=== PATIENT | female | born 1975 | race African-American/Black ===

== ENCOUNTER 2018-05-19 10:30 | Inpatient (IN) | payer OTHER ==
[2018-05-19 13:27] VITALS: BMI 23.8
--- NOTE | 2018-05-19 15:47 | HP ---
Admission ROS [facility] Chief Complaint: i need help to come in for rehab from alcohol Allergies/Adverse Reactions: Allergies Allergy/AdvReac Type Severity Reaction Status Date / Time naltrexone AdvReac Verified 05/19/18 14:07 History of Present Illness: this 42 years old female with alcohol dependence,feel 05/11/18 seen at [facility] ,injury to back and neck,admitted from 05/13/18 to 05/18/18 complete detox need rehab type 2 dm,iddm nicotine dependence no significant period of sobriety Exam Limitations: No Limitations - Ebola screening Have you traveled outside of the country in the last 21 days: No Have you had contact with anyone from an Ebola affected area: No Have you been sick,other than usual withdrawal symptoms: No Do you have a fever: No - Review of Systems Constitutional: No Symptoms Reported EENT: reports: No Symptoms Reported Respiratory: reports: No Symptoms reported Cardiac: reports: Palpitations GI: reports: No Symptoms Reported : reports: No Symptoms Reported Musculoskeletal: reports: No Symptoms Reported Integumentary: reports: No Symptoms Reported Neuro: reports: No Symptoms reported Endocrine: reports: No Symptoms Reported Hematology: reports: No Symptoms Reported Psychiatric: reports: No Sypmtoms Reported, Judgement Intact, Mood/Affect Appropiate, Orientated x3 Patient History - Patient Medical History Hx Anemia: No Hx Asthma: No Hx Chronic Obstructive Pulmonary Disease (COPD): No Hx Cancer: No Hx Cardiac Disorders: No Hx Congestive Heart Failure: No Hx Hypertension: No Hx Hypercholesterolemia: No Hx Pacemaker: No HX Cerebrovascular Accident: No Hx Seizures: No Hx Dementia: No Hx Diabetes: Yes (type 2,iddm) Hx Gastrointestinal Disorders: No Hx Liver Disease: Yes (fatty liver) Hx Genitourinary Disorders: No Hx Sexually Transmitted Disorders: No Hx Renal Disease (ESRD): No Hx Thyroid Disease: No Hx Human Immunodeficiency Virus (HIV): No (last 2011 negative) Hx Hepatitis C: No Hx Depression: No Hx Suicide Attempt: No Hx Bipolar Disorder: No Hx Schizophrenia: No Other Medical History: no suic idal,no homicidal - Patient Surgical History Hx Cholecystectomy: Yes (2013 [facility]) - PPD History Previous Implant?: Yes Documented Results: Negative w/o proof Implanted On Prior R Admission?: No PPD to be Administered?: Yes - Reproductive History Patient is a Female of Child Bearing Age (11 -55 yrs old): Yes Last Menstrual Period: 03/19/18 Patient : No - Smoking Cessation Smoking history: Current every day smoker Have you smoked in the past 12 months: Yes Aproximately how many cigarettes per day: 3 Cigars Per Day: 0 Hx Chewing Tobacco Use: No Initiated information on smoking cessation: Yes 'Breaking Loose' booklet given: 05/19/18 - Substance & Tx. History Hx Alcohol Use: Yes Hx Substance Use: No Substance Use Type: Alcohol Hx Substance Use Treatment: Yes (05/13/18 to 05/18/18) - Substances Abused Alcohol Route: Oral Frequency: Daily Amount used: 1 PINT OF VODKA Age of first use: 15 Date of Last Use: 05/13/18 Family Disease History - Family Disease History Family Disease History: Other: Father (dsa), Mother (dsa,recover) Admission Physical Exam S - Vital Signs Vital Signs: Vital Signs - 24 hr 05/19/18 13:14 Temperature 96.2 F L Pulse Rate 128 H Respiratory 18 Rate Blood Pressure 112/79 - Physical General Appearance: Yes: Within Normal Limits HEENTM: Yes: Within Normal Limits, Other (pain in nesk and back) Respiratory: Yes: Within Normal Limits, Lungs Clear, Normal Breath Sounds Neck: Yes: Within Normal Limits (pain in the neck history of injury 1 week ago) , Supple, Trachea in good position Breast: Yes: Breast Exam Deferred Cardiology: Yes: Within Normal Limits, Regular Rhythm, Regular Rate, S1, S2 Abdominal: Yes: Within Normal Limits, Normal Bowel Sounds, Non Tender, Flat, Soft Genitourinary: Yes: Within Normal Limits Back: Yes: Within Normal Limits Musculoskeletal: Yes: Back pain, Muscle Pain Extremities: Yes: Within Normal Limits Neurological: Yes: 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 NML intact, Fully Oriented, Alert, Motor Strength 5/5 Integumentary: Yes: Within Normal Limits Lymphatic: Yes: Within Normal Limits - Diagnostic (1) Alcohol dependence Current Visit: Yes Status: Chronic (2) Multiple contusions Current Visit: Yes Status: Chronic (3) Neck pain Current Visit: Yes Status: Acute (4) Back pain Current Visit: Yes Status: Chronic (5) Frequent falls Current Visit: Yes Status: Acute (6) Use of cane as ambulatory aid Current Visit: Yes Status: Acute (7) Fatty liver Current Visit: Yes Status: Chronic (8) Increased ammonia level Current Visit: Yes Status: Acute (9) History of ascites Current Visit: Yes Status: Acute Cleared for Admission [facility] - Detox or Rehab Claeared for Rehab Admission: Yes [facility] Breath Alcohol Content Breath Alcohol Content: 0.055 Urine Pregancy Test - Result Urine Test Results: Negative- NO Line Present Urine Drug Screen - Results Drug Screen Negative: No Urine Drug Screen Results: BZO-Benzodiazepines, OXY-Oxycodone Inpatient Rehab Admission - Initial Determination Are CD services needed?: Yes Free of communicable disease: Yes Not in need of hospitalization: Yes - Rehab Admission Criteria Previous failed treatment: Yes Poor recovery environment: Yes Comorbidities: Yes Lacks judgement: No Patient is meeting Inpatient Rehab admission criteria:: Yes
[2018-05-19] MEDS ORDERED: MAGNESIUM HYDROX 2400MG/30ML ORAL SUSPENSION 30 ML CUP PO PRN (16:03)
[2018-05-19] MEDS ORDERED: MAG HYDROX/AL HYDROX/SIMETH 30 ML UNIT-DOSE CUP PO PRN (16:03)
[2018-05-19] MEDS ORDERED: LOPERAMIDE HCL 2 MG CAPSULE PO PRN (16:03)
[2018-05-19] MEDS ORDERED: ACETAMINOPHEN 325 MG TABLET (FP) PO PRN (16:03)
[2018-05-19] MEDS ORDERED: P-EPHED 60MG/TRIPROLIDI 2.5MG TABLET PO PRN (16:03)
[2018-05-19] MEDS ORDERED: IBUPROFEN 400 MG TABLET (FP) PO PRN (16:03)
[2018-05-19] MEDS ORDERED: MENTHOL/PHENOL 1 EACH UD MM PRN (16:03)
[2018-05-19] MEDS ORDERED: guaiFENesin/D-METHORPHAN HB 10 ML UNIT-DOSE CUPS PO PRN (16:03)
[2018-05-19] MEDS ORDERED: MAGNESIUM CITRATE 300 ML BOTTLE PO PRN (16:03)
[2018-05-19] MEDS ORDERED: ONDANSETRON *ODT* 4 MG TABLET SL PRN (16:06)
[2018-05-19] MEDS ORDERED: TUBERCULIN PPD 5 TU/0.1ML VIAL ID ONE (18:28)
[2018-05-19] MEDS: hydrOXYzine PAMOATE 50 MG CAPSULE (FP) PO PRN (21:34)
[2018-05-19] MEDS: THIAMINE HCL 100 MG TABLET (FP) PO SCH (21:34)
[2018-05-19] MEDS ORDERED: MELATONIN 5 MG TABLETS PO PRN (22:00)
[2018-05-19 23:49] LABS: URINE APPEARANCE SLCLOUDY; URINE COLOR AMBER; URINE GLUCOSE (UA) NEGATIVE (NEGATIVE); URINE KETONE TRACE (NEGATIVE); URINE LEUK ESTERASE TRACE (NEGATIVE); URINE NITRITE NEGATIVE (NEGATIVE); URINE PROTEIN 2+ (NEGATIVE); URINE UROBILINOGEN 4.0 E.U/dl mg/dL (0.2-1.0)
[2018-05-20 01:17] LABS: EPI CELLS FEW /HPF (FEW); URINE HYALINE CAST 7 /lpf; URINE MUCUS FEW
[2018-05-20] MEDS ORDERED: glipiZIDE 5 MG TABLET (FP) PO SCH (07:00)
[2018-05-20] MEDS: hydrOXYzine PAMOATE 50 MG CAPSULE (FP) PO PRN (09:19)
[2018-05-20] MEDS ORDERED: LACTULOSE 20 GM/30 ML UDC (FOR ORAL USE ONLY) PO SCH (10:00)
[2018-05-20] MEDS ORDERED: PRENATAL VITAMINS W/ FOLIC ACID TABLET (FP) PO SCH (10:00)
--- NOTE | 2018-05-20 10:11 | HP ---
Psychiatrist Admission - Data Date of interview: 05/20/18 Admission source: [facility] Identifying data: This is the first admission to [address] [place] [address] for this Vital Signs: Vital Signs - 24 hr 05/19/18 05/19/18 05/20/18 13:14 17:40 00:30 Temperature 96.2 F L 99.0 F Pulse Rate 128 H 132 H Respiratory 18 18 18 Rate Blood Pressure 112/79 106/77 05/20/18 05/20/18 03:30 07:04 Temperature 98.5 F Pulse Rate 114 H Respiratory 18 17 Rate Blood Pressure 120/88 Allergies/Adverse Reactions: Allergies Allergy/AdvReac Type Severity Reaction Status Date / Time naltrexone AdvReac Verified 05/19/18 14:07 Date of last physical exam: 05/19/18 Concur with the findings of this exam: Yes - Substance Abuse/Tx History Hx Alcohol Use: Yes (reports drinking since 15 yo,1 pint of vodka) Hx Substance Use: No Substance Use Type: Alcohol Hx Substance Use Treatment: Yes (no significant time of abstinence) Psychiatric Findings - Problem List ([place] 1, 2,3) (1) Alcohol dependence Current Visit: Yes Status: Chronic (2) Back pain Current Visit: Yes Status: Chronic (3) Fatty liver Current Visit: Yes Status: Chronic (4) Multiple contusions Current Visit: Yes Status: Chronic - Initial Treatment Plan Initial Treatment Plan: Will monitor progress.
[2018-05-20 10:40] LABS: ALBUMIN 2.4 g/dl (3.4-5.0); ALK PHOS 129 U/L (45-117); ANION GAP 14 MMOL/L (8-16); BILIRUBIN,TOTAL 2.1 mg/dL (0.2-1); BLOOD UREA NITROGEN 3 mg/dL (7-18); CALCIUM 7.6 mg/dL (8.5-10.1); CHLORIDE 93 mmol/L (98-107); CO2 26 mmol/L (21-32); CREATININE 0.6 mg/dL (0.55-1.3); GLUCOSE,RANDOM 153 mg/dL (74-106); POTASSIUM 3.1 mmol/L (3.5-5.1); SGOT/AST 64 U/L (15-37); SGPT/ALT 14 U/L (13-61); SODIUM 133 mmol/L (136-145); TOT PROT 8.6 g/dl (6.4-8.2)
[2018-05-20 10:51] LABS: HEMATOCRIT 33.6 % (32.4-45.2); HEMOGLOBIN 10.9 GM/dL (10.7-15.3); MCH 32.3 pg (25.7-33.7); MCHC 32.6 g/dl (32.0-36.0); MEAN CELL VOLUME 99.3 fl (80-96); MEAN PLT VOLUME 11.7 fl (7.5-11.1); PLATELET COUNT 85 K/MM3 (134-434); RBC 3.39 M/mm3 (3.60-5.2); RDW 18.7 % (11.6-15.6); WHITE BLOOD COUNT 9.4 K/mm3 (4.0-10.0)
--- NOTE | 2018-05-20 10:58 | PN ---
[facility] Progress Note Note: 42 Y/O FEMALE IS A NEW PT ADMITTED YESTERDAY TO REHAB(SEE H/P). C/O CONSTIPATION X 4 DAYS AND HX ASCITES. SAW PT WHO REPORTS SEVERE PAIN , 04/27 ACROSS ABDOMEN WITH DISTENSION AND DEPRIVING HER OF SLEEP AND CANNOT TURN IN BED. PT REPORTS DISTENSION HAS BEEN THERE BEFORE SHE WAS DISCHARGED FROM [facility] ON 05/17/18 WHEN SHE WENT FOR C/O FALL INJURY. PT REPORTS 2 LITERS REMOVED FROM ABDOMEN 4- 5 MONTHS AGO AT [facility], [place]. REQUESTING EVALUATION OF ASCITES. PT ALSO C/O SCANTY ORANGE URINE CURRENTLY. PT HAS A HX OD T2DM,HEP C, FATTY LIVER,HYPOKALEMIA(THAT SHE WAS TAKING K+ SUPPLEMENT, S/P CHOLECYSTECTOMY IN 2013. PT REPORTS SHE HAS A PRIMARY CARE DOCTOR, DR. HIEU EAGLE AT [facility] WHO SHE WAS RECENTLY SWITCHED TO DUE TO INSURANCE PROTOCOLS BUT HAS NOT SEEN HER YET. REPORTS WAS SEEING DR CAROLYN LIN AT [facility] BEFORE THEN BUT NOT ANYMORE. Laboratory Tests 05/19/18 05/19/18 05/19/18 14:24 21:03 21:06 WBC RBC Hgb Hct MCV MCH MCHC RDW Plt Count MPV Sodium Potassium Chloride Carbon Dioxide Anion Gap BUN Creatinine Creat Clearance w eGFR POC Glucometer 179 125 Random Glucose Calcium Total Bilirubin AST ALT Alkaline Phosphatase Ammonia Total Protein Albumin Urine Color Rossi Urine Appearance Slcloudy Urine pH 6.0 Ur Specific Peel 1.020 Urine Protein 2+ H Urine Glucose (UA) Negative Urine Ketones Trace H Urine Blood Negative Urine Nitrite Negative Urine Bilirubin 2.0 Urine Urobilinogen 4.0 e.u/dl H Ur Leukocyte Esterase Trace Urine WBC (Auto) 14 Urine RBC (Auto) None Ur Epithelial Cells Few Hyaline Casts 7 Urine Mucus Few 05/20/18 05/20/18 05/20/18 05:40 05:40 06:54 WBC 9.4 RBC 3.39 L Hgb 10.9 Hct 33.6 MCV 99.3 H MCH 32.3 MCHC 32.6 RDW 18.7 H Plt Count 85 L MPV 11.7 H Sodium 133 L Potassium 3.1 L Chloride 93 L Carbon Dioxide 26 Anion Gap 14 BUN 3 L Creatinine 0.6 Creat Clearance w eGFR > 60 POC Glucometer 89 Random Glucose 153 H Calcium 7.6 L Total Bilirubin 2.1 H AST 64 H ALT 14 Alkaline Phosphatase 129 H Ammonia Total Protein 8.6 H Albumin 2.4 L Urine Color Urine Appearance Urine pH Ur Specific Peel Urine Protein Urine Glucose (UA) Urine Ketones Urine Blood Urine Nitrite Urine Bilirubin Urine Urobilinogen Ur Leukocyte Esterase Urine WBC (Auto) Urine RBC (Auto) Ur Epithelial Cells Hyaline Casts Urine Mucus 05/20/18 07:30 WBC RBC Hgb Hct MCV MCH MCHC RDW Plt Count MPV Sodium Potassium Chloride Carbon Dioxide Anion Gap BUN Creatinine Creat Clearance w eGFR POC Glucometer Random Glucose Calcium Total Bilirubin AST ALT Alkaline Phosphatase Ammonia 99.90 H Total Protein Albumin Urine Color Urine Appearance Urine pH Ur Specific Peel Urine Protein Urine Glucose (UA) Urine Ketones Urine Blood Urine Nitrite Urine Bilirubin Urine Urobilinogen Ur Leukocyte Esterase Urine WBC (Auto) Urine RBC (Auto) Ur Epithelial Cells Hyaline Casts Urine Mucus LABS NOTED ABDOMEN:LARGELY DISTENDED; BS+ ALL QUADS;MILD TO MODERATE PAIN ON PALPATION TO UPPER QUADS. DULL SOUNDS ON FINGER TAP IMPRESSION ASCITES HYPOKALEMIA ELEVATED AMMONIA LEVEL CONSTIPATION NAD PLAN: KDUR 20 MEQ PO BID, FIRST DOSE NOW. CONSIDER TRANSFER TO [facility] VIA AMBULANCE FOR FURTHER EVALUATION AND TREATMENT. PT MAY RETURN TO REHAB IF STABLE. REPORT GIVEN TO SHEILA, CHARGE NURSE AT [facility] ER WHO ACCEPTED THAT PT CAN BE BROUGHT IN. ALSO SPOKE WITH DR. NOONAN AT THE ER WHO OK'D PT'S EVALUATION PLANS.
[2018-05-20] MEDS ORDERED: POTASSIUM CHLORIDE TABS 20 MEQ TABLET.ER (FP) PO ONE (11:30)
--- NOTE | 2018-05-20 11:35 | EKG ---
Test Reason : Blood Pressure : / mmHG Vent. Rate : 106 BPM Atrial Rate : 106 BPM P-R Int : 124 ms QRS Dur : 088 ms QT Int : 374 ms P-R-T Axes : 067 -19 001 degrees QTc Int : 496 ms SINUS TACHYCARDIA POSSIBLE LEFT ATRIAL ENLARGEMENT NONSPECIFIC ST ABNORMALITY ABNORMAL ECG WHEN COMPARED WITH ECG OF 19-MAY-2018 16:55, NO SIGNIFICANT CHANGE WAS FOUND Confirmed by RUKHSANA HOLLINGSWORTH MD ([id number]) on 05/20/2018 11:35:41 AM Referred By: Confirmed By:RUKHSANA HOLLINGSWORTH MD
--- NOTE | 2018-05-20 11:38 | EKG ---
Test Reason : Blood Pressure : / mmHG Vent. Rate : 122 BPM Atrial Rate : 122 BPM P-R Int : 126 ms QRS Dur : 084 ms QT Int : 340 ms P-R-T Axes : 077 -17 033 degrees QTc Int : 484 ms SINUS TACHYCARDIA RIGHT ATRIAL ENLARGEMENT NONSPECIFIC ST ABNORMALITY ABNORMAL ECG NO PREVIOUS ECGS AVAILABLE Confirmed by RUKHSANA HOLLINGSWORTH MD ([id number]) on 05/20/2018 11:37:28 AM Referred By: Confirmed By:RUKHSANA HOLLINGSWORTH MD
[2018-05-20 11:51] VITALS: BP 124/93; PULSE 101; TEMP 97.3
[2018-05-20 13:35] LABS: SICKLE CELL SCREEN POS (NEGATIVE)
[2018-05-20] MEDS ORDERED: POTASSIUM CHLORIDE TABS 20 MEQ TABLET.ER (FP) PO SCH (18:00)
[2018-05-20] MEDS ORDERED: morphine CARPU-JECT 2 MG/1 ML DISP.SYRIN IVPUSH PRN (18:27)
[2018-05-20] MEDS ORDERED: LACTULOSE 20 GM/30 ML UDC (FOR RECTAL USE ONLY) PR ONE (18:28)
[2018-05-20] MEDS: THIAMINE HCL 100 MG TABLET (FP) PO SCH (23:12)
== END 2018-05-20 22:50 | disposition short-term general hospital (02) | DRG 772 ==
LOC: YASAS 10:30 → Y3E 16:18
PROVIDERS: ADMIT Psychiatry & Neurology Psychiatry; ATTEND Psychiatry & Neurology Psychiatry
PROC: HZ42ZZZ Group Counseling for Substance Abuse Treatment, Cognitive-Behavioral (ICD-10-PCS; principal; 2018-05-19)
DX: F10.20 Alcohol dependence, uncomplicated (principal); F17.210 Nicotine dependence, cigarettes, uncomplicated; R18.8 Other ascites; E11.9 Type 2 diabetes mellitus without complications; Z79.4 Long term (current) use of insulin; K76.0 Fatty (change of) liver, not elsewhere classified; M54.2 Cervicalgia; M54.9 Dorsalgia, unspecified; R29.6 Repeated falls; R26.89 Other abnormalities of gait and mobility; Z99.89 Dependence on other enabling machines and devices
CPT/HCPCS: 36415; 80053; 81003; 81015; 82140; 82962; 85027; 85660; 86593; 93005; 93010

== ENCOUNTER 2018-05-20 13:36 | Inpatient (IN) | payer OTHER ==
--- NOTE | 2018-05-20 13:45 | PDOC ---
History of Present Illness - General Stated Complaint: ABDOMINAL PAIN Time Seen by Provider: 05/20/18 13:44 - History of Present Illness Initial Comments: Tanna Rose is a 42yo woman with a PMH of IDDM, hep C, alcohol abuse, fatty liver, possible cirrhosis who presents from detox requesting evaluation of ascites. She reports that over the past 48 hours, she has noticed a significant increase in her abdominal girth that has become very uncomfortable. It is preventing her from sleeping, and she has had very poor appetite. She also reports 6-7 days since she has had a bowel movement, though she has not been eating well. Over the past day, she has also started to have upper abdominal pain. She describes this as a 9/10, non-radiating pain in the b/l upper abdomen just under her ribs. She says that it feels almost like a previous episode of pancreatitis but does not go to her back. Ms Rose reports that she has been trying to drink Glucerna as she has not been able to eat anything for the past week or so. She denies any known fevers, shivering chills, vomiting, or urinary symptoms. She does have loss of appetite , difficulty sleeping, and constipation as mentioned above. She reports a previous paracentesis with about 2L of fluid removed about 5 months ago, but she says that at that time she was "all puffed up everywhere" and needed diuretics. She does not take diuretics at home now. She was also recently admitted at a hospital in [place] following a fall. Past History - Past Medical History Allergies/Adverse Reactions: Allergies Allergy/AdvReac Type Severity Reaction Status Date / Time naltrexone AdvReac Verified 05/19/18 14:07 Home Medications: Ambulatory Orders Disulfiram [Antabuse] 125 mg PO DAILY 05/19/18 Folic Acid 0.8 mg PO DAILY 05/19/18 Glipizide 2.5 mg PO DAILY 05/19/18 Lactulose 20 gm PO DAILY 05/19/18 Ondansetron [Zofran Odt -] 4 mg SL Q6H PRN 05/19/18 Potassium Chloride 40 meq PO DAILY 05/19/18 Anemia: No Asthma: No Cancer: No Cardiac Disorders: No CVA: No COPD: No CHF: No Dementia: No Diabetes: Yes (ON MEDS) GI Disorders: No Disorders: No HTN: No Hypercholesterolemia: No Kidney Stones: No Liver Disease: Yes (fatty liver) Seizures: No Thyroid Disease: No - Surgical History Cholecystectomy: Yes ([facility] 2013) - Reproductive History PID: No - Suicide/Smoking/Psychosocial Hx Smoking History: Current every day smoker Have you smoked in the past 12 months: Yes Number of Cigarettes Smoked Daily: 3 Cigars Per Day: 0 'Breaking Loose' booklet given: 05/19/18 Hx Alcohol Use: Yes (reports drinking since 15 yo,1 pint of vodka) Drug/Substance Use Hx: No Substance Use Type: Alcohol Hx Substance Use Treatment: Yes (no significant time of abstinence) Review of Systems - Review of Systems Comments:: General: No fevers, no chills. +anorexia HEENT: No changes in vision or hearing, no congestion, no sore throat CV: No chest pain, no palpitations, no LE edema Pulm: +Mild SOB, no cough, no wheezing GI: No nausea or vomiting. See HPI. : No frequency, no urgency, no dysuria Musc: No back pain, no joint swelling. +recent fall Skin: No rash, no lesions, no erythema Endo: h/o IDDM Heme: No unusual bruising or bleeding, no swollen glands Neuro: No syncope, no focal weakness Vasc: No claudication Psych: No changes in mood, no SI/HI *Physical Exam - Physical Exam Comments: General: Uncomfortable, no acute distress HEENT: PERRL, EOMI, MMM, voice normal, no scleral icterus, normal neck ROM Cards: RRR, no murmur appreciated Pulm: Comfortable on room air. Clear bilaterally Abd: Distended, somewhat tense. Mildly TTP along b/l upper abdomen. No rigidity or guarding : No CVA tenderness Ext: Atraumatic. No LE edema. ROM intact. Strength equal bilaterally Vasc: WWP Skin: Normal color, no rash or lesions Neuro: A&Ox3, CN grossly intact, speech normal, motor/sensory grossly intact and symmetric Psych: Tearful, upset ED Treatment Course - LABORATORY CBC & Chemistry Diagram: 05/20/18 14:15 05/20/18 14:15 Medical Decision Making - Medical Decision Making 05/20/18 14:47 Tanna Rose is a 42yo woman with a PMH of IDDM, alcohol abuse, and fatty liver v cirrhosis who presents with worsening ascites, abdominal pain, anorexia , and constipation for one week. - Given pain and elevated temperature to 99F, some concern for spontaneous bacterial peritonitis - Full septic workup sent including CBC, CMP, PT/INR, trop, EKG, CXR, blood cultures, UA, UCx - Rectal temp ordered to better evaluate for fever - CT abd/pelvis ordered given that pain is localized to upper abdomen and Ms Rose reports it feels like a previous episode of pancreatitis - Likely to need diagnostic tap 05/20/18 16:38 - Labs notable for normal WBC and hgb, platelets 119. INR 1.52. Na 133, K+ 3.0, lactate 2.2, tbili 2.4. AST 63, ALT 15, alk phos 147 - Giving 1x dose ceftriaxone empirically for possible SBP - Lactate elevated, hyponatremic, hypokalemic. 05/20/18 17:42 - CT completed. Images reviewed. Fat stranding around the pancreas consistent with pancreatitis. Also notes large amount of ascitic fluid and hepatic mass - Based on CT, patient is not a good candidate for bedside paracentesis - distended, air-filled bowel along anterior abdominal wall, fluid mostly on right side and in pelvis - Given clinical symptoms of pancreatitis and fat stranding on CT, will admit for management of pancreatitis despite no elevated lipase. - Microblog sent to hospitalist team for admission Seen and discussed with Dr Starks and Dr Payne. Jacque Barbour PGY1 *DC/Admit/Observation/Transfer Diagnosis at time of Disposition: Pancreatitis, Ascites - Discharge Dispostion Decision to Admit order: Yes - Referrals - Patient Instructions - Post Discharge Activity
--- NOTE | 2018-05-20 14:37 | PDOC ---
Attending Attestation - Resident Resident Name: Jacque Barbour - ED Attending Attestation I have performed the following: I have examined & evaluated the patient, The case was reviewed & discussed with the resident, I agree w/resident's findings & plan, Exceptions are as noted - HPI HPI: 05/20/18 14:56 This patient is a 42 year old female with PMHx of IDDM, fatty liver, alcohol dependence, possible cirrhosis, nicotine dependence, recent fall (05/11) - admitted to [facility]05/13-05/18/18, and presents from Detox for evaluation of ascites. Patient reports worsening abdominal distension over the past 2 days. She also reports trouble sleeping and poor appetite. She reports last BM 6-7 days ago. She reports upper abdominal pain, rates 03/28, states that the pain feels similar to her pancreatitis in the past but the only difference being that the pain doesnt radiate to her back. She denies any vomiting, fever, chills. Surgical Hx: Paracentesis (5 mos ago) @ [facility] Laparoscopic cholecystectomy - [facility] Social Hx: current every day smoker (3 cigarettes/day), daily alcohol use (1 pint vodka daily) - Physicial Exam PE: cardiac: rrr, no mrg pulm: cta b/l abd: distended, mild diffuse tenderness to palpation, tympanytic on purcussion ext: no edema - Medical Decision Making 05/20/18 16:00 42y hx of etoh, IDDM, fatty liver, ?cirrosis, HCV, sent from [facility] fo revlauation of ascites over ht epast 2 days. Pt endorses abd pain in the epigastrium and feels simialr somewhat to pancreatitis in the past. denies n/v , cp, sob, fever/chills, diarrhea. Pt did note that it is hard to urinate than prior and she has had fewer BMs. hx of constipation, notes she has poor appetite recently. ddx: panceratitis, ascitis, consider sbp will obtain labs will reassess if workup neg, will consider tap for sbp 05/20/18 16:00 05/20/18 17:[address] onted for stranding of pancreas some ascites, but not significant - no WBC elevation, nofever/chills - doubt SBP in light of similar pain to previous - suspect pancreaitits lipase wnl will admit for further management
[2018-05-20 15:02] LABS: VENOUS PC02 44.7 mmHg (38-52); VENOUS PH 7.45 (7.32-7.42); VENOUS PO2 25.3 mmHg (28-48)
[2018-05-20 15:04] LABS: BASO % 0.7 % (0-2.0); EOS % 1.8 % (0-4.5); HEMATOCRIT 36.6 % (32.4-45.2); HEMOGLOBIN 12.4 GM/dL (10.7-15.3); LYMPH % 31.7 % (8-40); MCH 33.5 pg (25.7-33.7); MCHC 33.9 g/dl (32.0-36.0); MEAN CELL VOLUME 98.7 fl (80-96); MEAN PLT VOLUME 9.1 fl (7.5-11.1); MONO % 10.3 % (3.8-10.2); NEUT % 55.5 % (42.8-82.8); PLATELET COUNT 119 K/MM3 (134-434); RBC 3.71 M/mm3 (3.60-5.2); RDW 18.3 % (11.6-15.6); WHITE BLOOD COUNT 6.6 K/mm3 (4.0-10.0)
[2018-05-20 15:10] LABS: INR 1.52 (0.83-1.09)
[2018-05-20 15:13] LABS: ACTIVATED PTT 31.7 SECONDS (25.2-36.5)
[2018-05-20 15:37] LABS: AMYLASE 35 U/L (25-115); LIPASE 56 U/L (73-393)
[2018-05-20 15:45] LABS: ALBUMIN 2.4 g/dl (3.4-5.0); ALK PHOS 147 U/L (45-117); ANION GAP 10 MMOL/L (8-16); BILIRUBIN,TOTAL 2.4 mg/dL (0.2-1); BLOOD UREA NITROGEN 3 mg/dL (7-18); CALCIUM 8.4 mg/dL (8.5-10.1); CHLORIDE 93 mmol/L (98-107); CO2 29 mmol/L (21-32); CREATININE 0.7 mg/dL (0.55-1.3); GLUCOSE,RANDOM 179 mg/dL (74-106); SGOT/AST 63 U/L (15-37); SGPT/ALT 15 U/L (13-61); SODIUM 133 mmol/L (136-145); TOT PROT 9.5 g/dl (6.4-8.2)
[2018-05-20] MEDS ORDERED: morphine CARPU-JECT 2 MG/1 ML DISP.SYRIN IVPUSH ONE (16:33)
[2018-05-20] MEDS ORDERED: CEFTRIAXONE 2,000 MG in DEXTROSE 5%-WATER - 50 ML IVPB ONE (16:45)
[2018-05-20] MEDS ORDERED: POTASSIUM CHLORIDE TABS 20 MEQ TABLET.ER (FP) PO ONE ×2 (17:49→19:29)
--- NOTE | 2018-05-20 18:16 | HP ---
CHIEF COMPLAINT: abdominal pain PCP: none HISTORY OF PRESENT ILLNESS: Patient is a 42 year old female with a significant past medical history of long standing ETOH abuse since age 15, diabetes, hep C, fatty liver, with possible cirrhosis. She presents to the ED from [facility] (was about to start rehab for ETOH abuse). Patient went to [facility] on 05/19/18 for rehab. She was previously detoxed. On 05/20/2018, patient c/o of constipation for 4 days and increase in abdominal girth. Patient reported severe abdominal pain during rehab and was sent to [facility] for further evaluation. Patient was recently at [facility] on 05/17/18 where she was treated for a fall with injury. She reports that she had a paracentesis a few months ago at [facility] and 2 liters was removed. On exam patient reports worsening abdominal pain as well as poor PO intake. States her last drink was 1 week ago and has not drank since. Patient reports epigastric pain that feels like "burning" across her upper abdomen, just under her ribs. She describes the pain 9/10 that does not radiate. States this abdominal pain feels similar to her previous pancreatitis. She denies any fevers, chills, vomiting or nausea. In the Ed a CTAP shows large amt of free intraperitoneal fluid seen within abd and pelvis. multiple right hepatic lobe hypodense lesions are noted which may be in the basis of neoplastic disease. peripancreatic soft tissue stranding noted which could be due to acute pancreatitis ER course was notable for: (1) ct abd pelvis: large amt of free intraperitoneal fluid seen within abd and pelvis. multiple right hepatic lobe hypodense lesions are noted which may be in the basis of neoplastic disease. (2) peripancreatic soft tissue stranding noted which could be due to acute pancreatitis (3) elevated ammonia levels 99. given lactulose PAST MEDICAL HISTORY: ETOH abuse, diabetes hep C, alcohol abuse, fatty liver, with possible cirrhosis. Social History: Smoking:denies Alcohol: previous etoh abuse Drugs: denies Family History: Allergies naltrexone Adverse Reaction (Verified 05/19/18 14:07) HOME MEDICATIONS: Home Medications Medication Instructions Recorded Disulfiram [Antabuse] 125 mg PO DAILY 05/19/18 Folic Acid 0.8 mg PO DAILY 05/19/18 Glipizide 2.5 mg PO DAILY 05/19/18 Lactulose 20 gm PO DAILY 05/19/18 Ondansetron [Zofran Odt -] 4 mg SL Q6H PRN 05/19/18 Potassium Chloride 40 meq PO DAILY 05/19/18 PHYSICAL EXAMINATION Vital Signs - 24 hr 05/20/18 05/20/18 13:36 13:47 Temperature 98.9 F 99.0 F Pulse Rate 105 H Respiratory 20 Rate Blood Pressure 116/80 O2 Sat by Pulse 100 Oximetry (%) GENERAL: Awake, alert, and fully oriented, in no acute distress. HEAD: Normal with no signs of trauma. EYES: Pupils equal, round and reactive to light, extraocular movements intact, sclera anicteric, conjunctiva clear. No lid lag. EARS, NOSE, THROAT: Ears normal, nares patent, oropharynx clear without exudates. Moist mucous membranes. NECK: Normal range of motion, supple without lymphadenopathy, JVD, or masses. LUNGS: Breath sounds equal, clear to auscultation bilaterally. HEART: Regular rate and rhythm ABDOMEN: distended, ctap consistent with large amt of ascites. abdominal pain and discomfort. MUSCULOSKELETAL: Normal range of motion at all joints. No bony deformities or tenderness. No CVA tenderness. UPPER EXTREMITIES: No peripheral edema. LOWER EXTREMITIES: No peripheral edema. NEUROLOGICAL: Normal speech. Normal gait. PSYCHIATRIC: Appropriate mood and affect. SKIN: dry Laboratory Results - last 24 hr 05/20/18 05/20/18 05/20/18 14:15 14:15 14:15 WBC 6.6 RBC 3.71 Hgb 12.4 Hct 36.6 MCV 98.7 H MCH 33.5 MCHC 33.9 RDW 18.3 H Plt Count 119 L D MPV 9.1 D Absolute Neuts (auto) 3.7 Neutrophils % 55.5 Lymphocytes % 31.7 Monocytes % 10.3 H Eosinophils % 1.8 Basophils % 0.7 Nucleated RBC % 0 PT with INR 18.00 H INR 1.52 H PTT (Actin FS) 31.7 VBG pH POC VBG pCO2 POC VBG pO2 Mixed VBG HCO3 Sodium 133 L Potassium 3.0 L Chloride 93 L Carbon Dioxide 29 Anion Gap 10 BUN 3 L Creatinine 0.7 Creat Clearance w eGFR > 60 Random Glucose 179 H Lactic Acid Calcium 8.4 L Total Bilirubin 2.4 H AST 63 H ALT 15 Alkaline Phosphatase 147 H Troponin I < 0.02 Total Protein 9.5 H Albumin 2.4 L Total Amylase Lipase 05/20/18 05/20/18 05/20/18 14:15 14:15 14:15 WBC RBC Hgb Hct MCV MCH MCHC RDW Plt Count MPV Absolute Neuts (auto) Neutrophils % Lymphocytes % Monocytes % Eosinophils % Basophils % Nucleated RBC % PT with INR INR PTT (Actin FS) VBG pH 7.45 H POC VBG pCO2 44.7 POC VBG pO2 25.3 L Mixed VBG HCO3 30.2 H Sodium Potassium Chloride Carbon Dioxide Anion Gap BUN Creatinine Creat Clearance w eGFR Random Glucose Lactic Acid 2.2 H* Calcium Total Bilirubin AST ALT Alkaline Phosphatase Troponin I Total Protein Albumin Total Amylase 35 Lipase 56 L 05/20/18 14:40 WBC RBC Hgb Hct MCV MCH MCHC RDW Plt Count MPV Absolute Neuts (auto) Neutrophils % Lymphocytes % Monocytes % Eosinophils % Basophils % Nucleated RBC % PT with INR INR PTT (Actin FS) VBG pH POC VBG pCO2 POC VBG pO2 Mixed VBG HCO3 Sodium Potassium Chloride Carbon Dioxide Anion Gap BUN Creatinine Creat Clearance w eGFR Random Glucose Lactic Acid Calcium Total Bilirubin AST ALT Alkaline Phosphatase Troponin I Cancelled Total Protein Albumin Total Amylase Lipase ASSESSMENT/PLAN: Patient is a 42 year old female with a significant past medical history of ETOH abuse, diabetes hep C, alcohol abuse, fatty liver, with possible cirrhosis. She presents to the ED from [facility] (was about to start rehab for ETOH abuse) , for increased in abdominal girth and abdominal pain. --------- Abdominal pain ETOH abuse Diabetes Hep C Fatty liver Ascites Liver Cirrh Electroyte imbalance possible SBP Lactate elevated, hyponatremic, hypokalemic facial twitches elevated ammonia level ----- Abdominal pain Pancreatitis/rule out sbp/abdominal ascites ct abd pelvis: large amt of free intraperitoneal fluid seen within abd and pelvis. multiple right hepatic lobe hypodense lesions are noted which may be in the basis of neoplastic disease. peripancreatic sot tissue stranding noted which could be due to acute pancreatitis NPO IVF GI consult will need paracentesis pain management Will continue ceftriaxone Protonix 40mg iv push given lactulose [place] Psyche: ETOH abuse. last drink reported to be 1 week ago. Patient was seeking rehab at [facility] and was sent here for abdominal distention. Neuro: Facial twitching. likely secondary to prolonged ETOH use. patients states they are chronic and intermittent. Ativan 1mg ivp prn ordered for signs of acute alcohol withdrawal. Reports last drink about 1 week ago. Endocrine: Diabetes: BGMs q4 while NPO. fen npo ivf prophy protonix full code. Visit type - Emergency Visit Emergency Visit: Yes ED Registration Date: 05/20/18 Care time: The patient presented to the Emergency Department on the above date and was hospitalized for further evaluation of their emergent condition. - New Patient This patient is new to me today: Yes Date on this admission: 05/21/18 - Critical Care Critical Care patient: No
[2018-05-20] MEDS ORDERED: PANTOPRAZOLE SODIUM 40 MG VIAL IVPUSH ONE (18:59)
[2018-05-20] MEDS ORDERED: MORPHINE SULFATE 2 MG/ML VIAL ONE (19:29)
[2018-05-20] MEDS ORDERED: CEFTRIAXONE 2 GM/100 ML BAG IVPB ONE (19:30)
[2018-05-20] MEDS ORDERED: PANTOPRAZOLE SODIUM 40 MG VIAL ONE (19:30)
[2018-05-20 20:34] LABS: URINE APPEARANCE SLCLOUDY; URINE BILIRUBIN NEGATIVE (<2.0 mg/dL); URINE COLOR AMBER; URINE GLUCOSE (UA) NEGATIVE (NEGATIVE); URINE KETONE NEGATIVE (NEGATIVE); URINE LEUK ESTERASE TRACE (NEGATIVE); URINE NITRITE NEGATIVE (NEGATIVE); URINE PROTEIN NEGATIVE (NEGATIVE); URINE UROBILINOGEN 4.0 E.U/dl mg/dL (0.2-1.0)
[2018-05-20 21:28] LABS: EPI CELLS FEW /HPF (FEW); URINE BACTERIA RARE /hpf (NONE SEEN); URINE MUCUS FEW
[2018-05-20] MEDS: SODIUM CHLORIDE 0.9%/KCL 20 MEQ/1,000 ML INFUS.BAG IV SCH (23:05)
[2018-05-20] MEDS: MORPHINE SULFATE 2 MG/ML VIAL IVPUSH PRN (23:06)
[2018-05-21] MEDS: MORPHINE SULFATE 2 MG/ML VIAL IVPUSH PRN ×2 (04:56→08:45)
[2018-05-21] MEDS ORDERED: DEXTROSE 5%-WATER 100 ML IVPB ONE (08:31)
[2018-05-21] MEDS ORDERED: CEFTRIAXONE 2 GM in DEXTROSE 5%-WATER 100 ML IVPB SCH (10:00)
[2018-05-21] MEDS ORDERED: morphine SULFATE 4 MG/ML VIAL IVPUSH PRN (10:17)
--- NOTE | 2018-05-21 10:17 | PN ---
Physical Exam: SUBJECTIVE: Patient seen and examined at the bedside. denies nausea or vomiting. OBJECTIVE: Vital Signs Period Temp Pulse Resp BP Sys/Pulliam Pulse Ox Last 24 Hr 98 F-99.1 F 87-105 20-22 98-120/70-84 97-100 GENERAL: Awake, alert, and fully oriented, in no acute distress. HEAD: Normal with no signs of trauma. EYES: Pupils equal, round and reactive to light, extraocular movements intact, sclera anicteric, conjunctiva clear. No lid lag. EARS, NOSE, THROAT: Ears normal, nares patent, oropharynx clear without exudates. Moist mucous membranes. NECK: Normal range of motion, supple without lymphadenopathy, JVD, or masses. LUNGS: Breath sounds equal, clear to auscultation bilaterally. HEART: Regular rate and rhythm ABDOMEN: distended, ctap consistent with large amt of ascites. abdominal pain and discomfort. MUSCULOSKELETAL: Normal range of motion at all joints. No bony deformities or tenderness. No CVA tenderness. UPPER EXTREMITIES: No peripheral edema. LOWER EXTREMITIES: No peripheral edema. NEUROLOGICAL: Normal speech. Normal gait. PSYCHIATRIC: Appropriate mood and affect. SKIN: dry Laboratory Results - last 24 hr 05/20/18 05/20/18 05/20/18 14:15 14:15 14:15 WBC 6.6 RBC 3.71 Hgb 12.4 Hct 36.6 MCV 98.7 H MCH 33.5 MCHC 33.9 RDW 18.3 H Plt Count 119 L D MPV 9.1 D Absolute Neuts (auto) 3.7 Neutrophils % 55.5 Lymphocytes % 31.7 Monocytes % 10.3 H Eosinophils % 1.8 Basophils % 0.7 Nucleated RBC % 0 PT with INR 18.00 H INR 1.52 H PTT (Actin FS) 31.7 VBG pH POC VBG pCO2 POC VBG pO2 Mixed VBG HCO3 Sodium 133 L Potassium 3.0 L Chloride 93 L Carbon Dioxide 29 Anion Gap 10 BUN 3 L Creatinine 0.7 Creat Clearance w eGFR > 60 POC Glucometer Random Glucose 179 H Lactic Acid Calcium 8.4 L Total Bilirubin 2.4 H AST 63 H ALT 15 Alkaline Phosphatase 147 H Troponin I < 0.02 Total Protein 9.5 H Albumin 2.4 L Total Amylase Lipase Urine Color Urine Appearance Urine pH Ur Specific [place] Urine Protein Urine Glucose (UA) Urine Ketones Urine Blood Urine Nitrite Urine Bilirubin Urine Urobilinogen Ur Leukocyte Esterase Urine WBC (Auto) Urine RBC (Auto) Ur Epithelial Cells Urine Bacteria Urine Mucus 05/20/18 05/20/18 05/20/18 14:15 14:15 14:15 WBC RBC Hgb Hct MCV MCH MCHC RDW Plt Count MPV Absolute Neuts (auto) Neutrophils % Lymphocytes % Monocytes % Eosinophils % Basophils % Nucleated RBC % PT with INR INR PTT (Actin FS) VBG pH 7.45 H POC VBG pCO2 44.7 POC VBG pO2 25.3 L Mixed VBG HCO3 30.2 H Sodium Potassium Chloride Carbon Dioxide Anion Gap BUN Creatinine Creat Clearance w eGFR POC Glucometer Random Glucose Lactic Acid 2.2 H* Calcium Total Bilirubin AST ALT Alkaline Phosphatase Troponin I Total Protein Albumin Total Amylase 35 Lipase 56 L Urine Color Urine Appearance Urine pH Ur Specific [place] Urine Protein Urine Glucose (UA) Urine Ketones Urine Blood Urine Nitrite Urine Bilirubin Urine Urobilinogen Ur Leukocyte Esterase Urine WBC (Auto) Urine RBC (Auto) Ur Epithelial Cells Urine Bacteria Urine Mucus 05/20/18 05/20/18 05/20/18 14:40 20:00 20:00 WBC RBC Hgb Hct MCV MCH MCHC RDW Plt Count MPV Absolute Neuts (auto) Neutrophils % Lymphocytes % Monocytes % Eosinophils % Basophils % Nucleated RBC % PT with INR INR PTT (Actin FS) VBG pH POC VBG pCO2 POC VBG pO2 Mixed VBG HCO3 Sodium Potassium Chloride Carbon Dioxide Anion Gap BUN Creatinine Creat Clearance w eGFR POC Glucometer Random Glucose Lactic Acid 2.0 Calcium Total Bilirubin AST ALT Alkaline Phosphatase Troponin I Cancelled Total Protein Albumin Total Amylase Lipase Urine Color [place] Urine Appearance Slcloudy Urine pH 7.0 Ur Specific [place] 1.013 Urine Protein Negative Urine Glucose (UA) Negative Urine Ketones Negative Urine Blood Negative Urine Nitrite Negative Urine Bilirubin Negative Urine Urobilinogen 4.0 e.u/dl H Ur Leukocyte Esterase Trace Urine WBC (Auto) 3 Urine RBC (Auto) None Ur Epithelial Cells Few Urine Bacteria Rare Urine Mucus Few 05/20/18 05/21/18 22:37 04:52 WBC RBC Hgb Hct MCV MCH MCHC RDW Plt Count MPV Absolute Neuts (auto) Neutrophils % Lymphocytes % Monocytes % Eosinophils % Basophils % Nucleated RBC % PT with INR INR PTT (Actin FS) VBG pH POC VBG pCO2 POC VBG pO2 Mixed VBG HCO3 Sodium Potassium Chloride Carbon Dioxide Anion Gap BUN Creatinine Creat Clearance w eGFR POC Glucometer 114 81 Random Glucose Lactic Acid Calcium Total Bilirubin AST ALT Alkaline Phosphatase Troponin I Total Protein Albumin Total Amylase Lipase Urine Color Urine Appearance Urine pH Ur Specific [place] Urine Protein Urine Glucose (UA) Urine Ketones Urine Blood Urine Nitrite Urine Bilirubin Urine Urobilinogen Ur Leukocyte Esterase Urine WBC (Auto) Urine RBC (Auto) Ur Epithelial Cells Urine Bacteria Urine Mucus Active Medications Generic Name Dose Route Start Last Admin Trade Name Freq PRN Reason Stop Dose Admin Potassium Chloride/Sodium Chloride 20 meq in 1,000 mls @ 75 mls/hr 05/20/18 18 :00 05/20/18 23:05 Ns+20 Meq Kcl - IV 75 mls/hr ASDIR TARAN Administration Ceftriaxone Sodium 2 gm/ 100 mls @ 200 mls/hr 05/21/18 10:00 05/21/18 09:12 Dextrose IVPB 05/22/18 09:59 200 mls/hr DAILY TARAN Administration Protocol Morphine Sulfate 2 mg 05/20/18 18:33 05/21/18 08:45 Morphine Sulfate IVPUSH 2 mg Q4H PRN Administration PAIN LEVEL 6-10 ASSESSMENT/PLAN: Patient is a 42 year old female with a significant past medical history of ETOH abuse, diabetes, hep C, fatty liver, with possible cirrhosis. She presents to the ED from [facility] (was about to start rehab for ETOH abuse), for increased in abdominal girth and abdominal pain. --------- Abdominal pain ETOH abuse Diabetes Hep C Fatty liver Ascites Liver Cirrh Electroyte imbalance possible SBP Lactate elevated, hyponatremic, hypokalemic facial twitches elevated ammonia level ----- Abdominal pain Pancreatitis per CT/rule out sbp/abdominal ascites ct abd pelvis: large amt of free intraperitoneal fluid seen within abd and pelvis. multiple right hepatic lobe hypodense lesions are noted which may be in the basis of neoplastic disease. peripancreatic sot tissue stranding noted which could be due to acute pancreatitis manage pain started on clears by GI diagnostic paracentesis ordered by GI Repeat ammonia levels MRCP pending Psyche: ETOH abuse. last drink reported to be 1 week ago. Patient was seeking rehab at [facility] and was sent here for abdominal distention. Neuro: Facial twitching. likely secondary to prolonged ETOH use. patients states they are chronic and intermittent. Ativan 1mg ivp prn ordered for signs of acute alcohol withdrawal. Reports last drink about 1 week ago. Endocrine: Diabetes: novolog ss, bgms fen npo ivf prophy protonix full code. Visit type - Emergency Visit Emergency Visit: Yes ED Registration Date: 05/20/18 Care time: The patient presented to the Emergency Department on the above date and was hospitalized for further evaluation of their emergent condition. - New Patient This patient is new to me today: No - Critical Care Critical Care patient: No - Discharge Referral Referred to [facility] No
[2018-05-21 10:34] LABS: BASO % 0.9 % (0-2.0); EOS % 2.6 % (0-4.5); HEMATOCRIT 30.8 % (32.4-45.2); HEMOGLOBIN 10.6 GM/dL (10.7-15.3); LYMPH % 41.4 % (8-40); MCH 33.9 pg (25.7-33.7); MCHC 34.3 g/dl (32.0-36.0); MEAN CELL VOLUME 98.8 fl (80-96); MEAN PLT VOLUME 9.2 fl (7.5-11.1); MONO % 11.8 % (3.8-10.2); NEUT % 43.3 % (42.8-82.8); PLATELET COUNT 128 K/MM3 (134-434); RBC 3.11 M/mm3 (3.60-5.2); RDW 18.1 % (11.6-15.6); WHITE BLOOD COUNT 7.1 K/mm3 (4.0-10.0)
[2018-05-21 11:42] LABS: ALK PHOS 101 U/L (45-117); ANION GAP 11 MMOL/L (8-16); BILIRUBIN,TOTAL 1.5 mg/dL (0.2-1); BLOOD UREA NITROGEN 3 mg/dL (7-18); CALCIUM 7.6 mg/dL (8.5-10.1); CHLORIDE 104 mmol/L (98-107); CO2 24 mmol/L (21-32); CREATININE 0.5 mg/dL (0.55-1.3); GLUCOSE,RANDOM 92 mg/dL (74-106); POTASSIUM 3.8 mmol/L (3.5-5.1); SGOT/AST 48 U/L (15-37); SGPT/ALT 13 U/L (13-61); SODIUM 139 mmol/L (136-145); TOT PROT 7.5 g/dl (6.4-8.2)
--- NOTE | 2018-05-21 11:58 | CON.ID ---
Consult Consult Specialty:: infectious diseases Referred by:: Kandace Reason for Consultation:: abd distension - History of Present Illness Chief Complaint: pain ,distension of abd History of Present Illness: 42 year old female with PMHx of IDDM, fatty liver, alcohol dependence, possible cirrhosis, nicotine dependence, recent fall (05/11) - admitted to [facility].05/13-05/18/18, and presents from Detox for evaluation of ascites. Patient reports worsening abdominal distension over the past 2 days. She also reports trouble sleeping and poor appetite. She reports last BM 6-7 days ago. She reports upper abdominal pain, rates 03/28, states that the pain feels similar to her pancreatitis in the past but the only difference being that the pain doesnt radiate to her back. She denies any vomiting, fever, chills. according to the patient this is her second attack ,she had similar one previously currently her main complaint is abd pain otherwise patient feels much better denies any other issues and denies iv drug abuse ,has stopped smoking last drink was couple of weeks back - History Source History Provided By: Patient Limitations to Obtaining History: No Limitations - Past Medical History ...LMP: 03/19/18 - Alcohol/Substance Use Hx Alcohol Use: Yes (reports drinking since 15 yo,1 pint of vodka) - Smoking History Smoking history: Current every day smoker Have you smoked in the past 12 months: Yes Aproximately how many cigarettes per day: 3 If you are a former smoker, when did you quit?: 05/02/18 Home Medications - Allergies Allergies/Adverse Reactions: Allergies Allergy/AdvReac Type Severity Reaction Status Date / Time naltrexone AdvReac Verified 05/19/18 14:07 - Home Medications Home Medications: Ambulatory Orders Disulfiram [Antabuse] 125 mg PO DAILY 05/19/18 Folic Acid 0.8 mg PO DAILY 05/19/18 Glipizide 2.5 mg PO DAILY 05/19/18 Lactulose 20 gm PO DAILY 05/19/18 Ondansetron [Zofran Odt -] 4 mg SL Q6H PRN 05/19/18 Potassium Chloride 40 meq PO DAILY 05/19/18 Family Disease History - Family Disease History Family Disease History: Other: Father (dsa), Mother (dsa,recover) Review of Systems - Review of Systems Constitutional: reports: No Symptoms Eyes: reports: No Symptoms HENT: reports: No Symptoms Neck: reports: No Symptoms Cardiovascular: reports: No Symptoms Respiratory: reports: No Symptoms Gastrointestinal: reports: Abdominal Pain Musculoskeletal: reports: No Symptoms Integumentary: reports: No Symptoms Neurological: reports: No Symptoms Endocrine: reports: No Symptoms Hematology/Lymphatic: reports: No Symptoms Psychiatric: reports: No Symptoms Physical Exam Vital Signs: Vital Signs Temperature 98 F 05/21/18 05:28 Pulse Rate 87 05/21/18 05:28 Respiratory Rate 20 05/21/18 09:00 Blood Pressure 98/70 05/21/18 05:28 O2 Sat by Pulse Oximetry (%) 97 05/21/18 09:00 Constitutional: Yes: Well Nourished, Calm, Mild Distress HENT: Yes: Atraumatic Cardiovascular: Yes: Regular Rate and Rhythm Respiratory: Yes: Regular, CTA Bilaterally Gastrointestinal: Yes: Ascites, Distention, Hypoactive Bowel Sounds Musculoskeletal: Yes: WNL Extremities: Yes: WNL Neurological: Yes: Alert, Oriented Psychiatric: Yes: Alert, Oriented Labs: CBC, BMP 05/21/18 10:15 05/21/18 10:15 Imaging - Results Chest X-ray: Report Reviewed Cat Scan: Report Reviewed, Image Reviewed Assessment/Plan Abdominal pain ETOH abuse Diabetes Hep C Fatty liver Ascites Liver Cirrh Electroyte imbalance possible SBP Lactate elevated, hyponatremic, hypokalemic r/o sbp r/o malignancy after looking at the patient and the history the worry are couple of things, including malignancy plan continue ceftriaxone tap the fluid and r/o sbp and malignancy continue close monitoring for any fevers rest as per the team should get tapped
[2018-05-21] MEDS: SODIUM CHLORIDE 0.9%/KCL 20 MEQ/1,000 ML INFUS.BAG IV SCH (12:15)
[2018-05-21 12:18] LABS: MAGNESIUM 1.2 mg/dL (1.8-2.4)
--- NOTE | 2018-05-21 12:43 | EKG ---
Test Reason : Blood Pressure : / mmHG Vent. Rate : 097 BPM Atrial Rate : 097 BPM P-R Int : 136 ms QRS Dur : 098 ms QT Int : 392 ms P-R-T Axes : 067 -15 015 degrees QTc Int : 497 ms NORMAL SINUS RHYTHM POSSIBLE LEFT ATRIAL ENLARGEMENT INCOMPLETE RIGHT BUNDLE BRANCH BLOCK NONSPECIFIC ST ABNORMALITY PROLONGED QT ABNORMAL ECG Confirmed by RUKHSANA HOLLINGSWORTH MD ([id number]) on 05/21/2018 12:43:00 PM Referred By: Confirmed By:RUKHSANA HOLLINGSWORTH MD
[2018-05-21] MEDS ORDERED: MAGNESIUM SULF 50% (8.12 MEQ/2 ML-1 GM VIAL) IVPB ONE (13:00)
--- NOTE | 2018-05-21 13:19 | CON.GI ---
Consult Consult Specialty:: Gastroenterology (covering Dr Mccurdy) Referred by:: Narcisa Tilley NP Reason for Consultation:: abdominal pain and distension - History of Present Illness Chief Complaint: abdominal pain and distension History of Present Illness: 42F is admitted with 2 days h/o abdominal pain and distension. The pain is in the RUQ and is constant, NO vomting. No radiation. She has shoulder and back pain form having fallen down a flight of stairs last week. She has been gaining weight although she has been unable to eat for the past few days. Abhinav mccarty is reminiscent of pancreatitis with which she was hospitalized at [facility] about 3 years ago. She underwent a lap choly at that time. She tells me that she has had ascites and diuretics in the past but never had a paracentesis. She has never had GI bleeding. She has never had an EGD or a colonoscopy. She was drinking about a pint of vodka daily until a week ago. She was seeking intervention to help her abstain from alcohol and was referred here from that program. She has a PMD in [place] who treats her DM who has told her that she has a fatty liver. Her CT scan reveals possible liver metastases. She tells me that she fell down a flight of stairs while visiting [facility] about a week ago and tells me that she had a CT with contrast there but was not told of any liver lesions. She denies any FH of cancer but her father and sister have muscular dystrophy. She denies IVDA or ever having had HBV, HCV or HIV. - History Source History Provided By: Patient (is admitted with abdominal pain and) - Past Medical History Cardio/Vascular: Yes: HTN Hepatobiliary: Yes: Cirrhosis (alcoholic cirrhosis), Cholelithiasis (s/p lap choly) ...LMP: 03/19/18 Psych: Yes: Addictions (alcohol) Endocrine: Yes: Diabetes Mellitus - Past Surgical History Past Surgical History: Yes: Cholecystectomy (lap choly), - Alcohol/Substance Use Hx Alcohol Use: Yes (reports drinking since 15 yo,1 pint of vodka) History of Substance Use: reports: None - Smoking History Smoking history: Current every day smoker Have you smoked in the past 12 months: Yes Aproximately how many cigarettes per day: 3 If you are a former smoker, when did you quit?: 05/02/18 - Social History Usual Living Arrangement: With Child ADL: Independent 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 Place of : [facility] History of Recent Travel: No Home Medications - Allergies Allergies/Adverse Reactions: Allergies Allergy/AdvReac Type Severity Reaction Status Date / Time naltrexone AdvReac Verified 05/19/18 14:07 - Home Medications Home Medications: Ambulatory Orders Disulfiram [Antabuse] 125 mg PO DAILY 05/19/18 Folic Acid 0.8 mg PO DAILY 05/19/18 Glipizide 2.5 mg PO DAILY 05/19/18 Lactulose 20 gm PO DAILY 05/19/18 Ondansetron [Zofran Odt -] 4 mg SL Q6H PRN 05/19/18 Potassium Chloride 40 meq PO DAILY 05/19/18 Family Disease History - Family Disease History Family Disease History: Other: Father (muscular dystropy, heroin addict), Mother (heroin addict), Sister (muscular dysptrophy) Review of Systems - Review of Systems Constitutional: reports: Loss of Appetite, Other (Weight gain) Eyes: reports: No Symptoms HENT: reports: No Symptoms Neck: reports: No Symptoms, Pain on Movement (since falling down stairs last week) Cardiovascular: reports: No Symptoms Respiratory: reports: No Symptoms Gastrointestinal: reports: Abdominal Pain, Constipation Musculoskeletal: reports: Back Pain, Muscle Pain (since falling down stairs last week) Physical Exam-GI Vital Signs: Vital Signs Temperature 98 F 05/21/18 05:28 Pulse Rate 87 05/21/18 05:28 Respiratory Rate 20 05/21/18 09:00 Blood Pressure 98/70 05/21/18 05:28 O2 Sat by Pulse Oximetry (%) 97 05/21/18 09:00 CBC,CMP WBC 7.1 K/mm3 (4.0-10.0) 05/21/18 10:15 RBC 3.11 M/mm3 (3.60-5.2) L 05/21/18 10:15 Hgb 10.6 GM/dL (10.7-15.3) L 05/21/18 10:15 Hct 30.8 % (32.4-45.2) L D 05/21/18 10:15 MCV 98.8 fl (80-96) H 05/21/18 10:15 MCH 33.9 pg (25.7-33.7) H 05/21/18 10:15 MCHC 34.3 g/dl (32.0-36.0) 05/21/18 10:15 RDW 18.1 % (11.6-15.6) H 05/21/18 10:15 Plt Count 128 K/MM3 (134-434) L 05/21/18 10:15 MPV 9.2 fl (7.5-11.1) 05/21/18 10:15 Absolute Neuts (auto) 3.1 K/mm3 (1.5-8.0) 05/21/18 10:15 Neutrophils % 43.3 % (42.8-82.8) D 05/21/18 10:15 Lymphocytes % 41.4 % (8-40) H D 05/21/18 10:15 Monocytes % 11.8 % (3.8-10.2) H 05/21/18 10:15 Eosinophils % 2.6 % (0-4.5) 05/21/18 10:15 Basophils % 0.9 % (0-2.0) 05/21/18 10:15 Nucleated RBC % 0 % (0-0) 05/21/18 10:15 Sodium 139 mmol/L (136-145) 05/21/18 10:15 Potassium 3.8 mmol/L (3.5-5.1) 05/21/18 10:15 Chloride 104 mmol/L (98-107) 05/21/18 10:15 Carbon Dioxide 24 mmol/L (21-32) 05/21/18 10:15 Anion Gap 11 MMOL/L (8-16) 05/21/18 10:15 BUN 3 mg/dL (7-18) L 05/21/18 10:15 Creatinine 0.5 mg/dL (0.55-1.3) L 05/21/18 10:15 Creat Clearance w eGFR > 60 (>60) 05/21/18 10:15 POC Glucometer 94 UNITS (80-120) 05/21/18 12:11 Random Glucose 92 mg/dL (74-106) 05/21/18 10:15 Lactic Acid 2.0 mmol/L (0.4-2.0) 05/20/18 20:00 Calcium 7.6 mg/dL (8.5-10.1) L 05/21/18 10:15 Magnesium Cancelled 05/21/18 10:45 Total Bilirubin 1.5 mg/dL (0.2-1) H 05/21/18 10:15 AST 48 U/L (15-37) H 05/21/18 10:15 ALT 13 U/L (13-61) 05/21/18 10:15 Alkaline Phosphatase 101 U/L (45-117) 05/21/18 10:15 Troponin I Cancelled 05/20/18 14:40 Total Protein 7.5 g/dl (6.4-8.2) 05/21/18 10:15 Albumin 2.0 g/dl (3.4-5.0) L 05/21/18 10:15 Total Amylase 35 U/L (25-115) 05/20/18 14:15 Lipase 56 U/L (73-393) L 05/20/18 14:15 Current Medications Generic Name Dose Route Start Last Admin Trade Name Alejoq PRN Reason Stop Dose Admin Potassium Chloride/Sodium Chloride 20 meq in 1,000 mls @ 75 mls/hr 05/20/18 18 :00 05/21/18 12:15 Ns+20 Meq Kcl - IV 75 mls/hr ASDIR TARAN Administration Ceftriaxone Sodium 2 gm/ 100 mls @ 200 mls/hr 05/21/18 10:00 05/21/18 09:12 Dextrose IVPB 05/22/18 09:59 200 mls/hr DAILY TARAN Administration Protocol Morphine Sulfate 4 mg 05/21/18 10:17 05/21/18 12:15 Morphine Sulfate IVPUSH 4 mg Q4H PRN Administration PAIN LEVEL 6-10 Constitutional: Yes: Calm Eyes: Yes: Sclera Icterus HENT: Yes: WNL Neck: Yes: Supple Cardiovascular: Yes: Regular Rate and Rhythm Respiratory: Yes: CTA Bilaterally Gastrointestinal Inspection: Yes: Distention, Scars (healed Pfannensteil and lap chol incisions) ...Auscultate: Yes: Normoactive Bowel Sounds ...Palpate: Yes: Soft, Other (nontender) ...Percussion: Yes: Tympanitic ...Rectal Exam: Yes: Guaiac Negative Edema: No Neurological: Yes: Alert, Oriented Labs: CBC, BMP 05/21/18 10:15 05/21/18 10:15 INR, PTT INR 1.52 (0.83-1.09) H 05/20/18 14:15 Imaging - Results Cat Scan: Report Reviewed (Kishore Martin Name: JOHANNA BARRAGAN DEPARTMENT OF RADIOLOGY Phys: Kalyn Barbour RESIDENT : 1975 Age: 42 Sex: F [facility] Acct: [id number] Loc: [address] Exam Date: 05/20/18 Status: REG DEVORA [place] [id number] Unit Number: [id number] EXAM#: TYPE/EXAM: RESULT: [id number] CT/ABDOMEN PELVIS CT W/O CONTR Abdomen and pelvis CT (without contrast) Clinical information: upper abdominal pain; history of hepatitis C , cirrhosis multiplanar imaging was performed. As requested no intravenous or enteric contrast was administered. No prior imaging studies are available at this facility for direct comparison. Multifocal low- attenuation areas are seen within the anterior and posterior segments of the right hepatic lobe the most prominent measuring approximately 7 cm in diameter which may be on the basis of neoplastic disease. A large amount of nonspecific free intraperitoneal fluid is noted within the abdomen and pelvis No evidence of pneumoperitoneum or bowel obstruction. Peripancreatic soft tissue stranding is seen which could be on the basis of acute pancreatitis. status post cholecystectomy. No obvious biliary tract dilatation is visualized. The spleen, adrenal glands and kidneys demonstrate no obvious noncontrast abnormality. There is no aortic aneurysm. No gross CT evidence of acute appendicitis or diverticulitis. Evaluation this regard is very limited. No obvious pelvic mass lesion is identified. Impression: A large amount of free intraperitoneal fluid is seen within the abdomen and pelvis. Multiple right hepatic lobe hypodense lesions are noted which may be on the basis of neoplastic disease. Peripancreatic soft tissue stranding is noted which could be due to acute pancreatitis. Clinical/ laboratory correlation is suggested. Reported By: Vinh Boone MD 05/20/181650 KALYN BARBOUR Technologist: Carey Colunga Transcribed Date /Time: 05/20/181650 Dietary Aide Teacher: Vinh Boone Printed Date/Time: By: Signed by: Vinh Boone Signed on: 02-Nov-2018 16:53) Problem List - Problems (1) Alcoholic cirrhosis of liver with ascites Assessment/Plan: I have explained the severity of her liver disease with Crystal and the need to absolutely abstain from alcohol. I have informed her of the liver lesions which could represent metastases or hepatocellular carcinoma related to her cirrhosis. The liver imaging abnormalities will hopefully prove to be due to irregularities cause by a fatty liver. I have told her that she will need an MRI with contrast to exclude liver lesions and a residual CBD stone given her jaundce abd pain. I will start Aldactone and heaven order a diagnostic paracentesis. Code(s): K70.31 - ALCOHOLIC CIRRHOSIS OF LIVER WITH ASCITES (2) History of pancreatitis Code(s): Z87.19 - PERSONAL HISTORY OF OTHER DISEASES OF THE DIGESTIVE SYSTEM (3) History of laparoscopic cholecystectomy Code(s): Z90.49 - ACQUIRED ABSENCE OF OTHER SPECIFIED PARTS OF DIGESTIVE TRACT (4) Alcohol dependence Code(s): F10.20 - ALCOHOL DEPENDENCE, UNCOMPLICATED (5) Type 2 diabetes mellitus Code(s): E11.9 - TYPE 2 DIABETES MELLITUS WITHOUT COMPLICATIONS Qualifiers: Diabetes mellitus fci insulin use: unspecified fci insulin use status Assessment/Plan MRI of liver and MRCP Paracentesis Aldactone Watch for DTs Dr Mccurdy will return 05/23.
[2018-05-21] MEDS ORDERED: PHYTONADIONE 10 MG/1 ML AMP IVPB ONE (15:00)
[2018-05-21] MEDS ORDERED: PHYTONADIONE 10 MG/1 ML AMP IM ONE (15:16)
[2018-05-21] MEDS: oxyCODONE HCL 5 MG TABLET PO PRN ×2 (17:12→21:30)
[2018-05-21] MEDS: ACETAMINOPHEN 325 MG TABLET (FP) PO PRN (17:12)
[2018-05-21] MEDS ORDERED: LORazepam 2 MG/ML SDV VIAL IVPUSH PRN (18:52)
[2018-05-21] MEDS: INSULIN SLIDING SCALE (NOVOLOG) 1 VIAL SQ SCH (21:30)
[2018-05-21] MEDS: SPIRONOLACTONE 25 MG TABLET (FP) PO SCH (21:31)
[2018-05-22] MEDS: oxyCODONE HCL 5 MG TABLET PO PRN ×4 (01:59→15:20)
[2018-05-22] MEDS: INSULIN SLIDING SCALE (NOVOLOG) 1 VIAL SQ SCH ×4 (06:16→22:11)
[2018-05-22 07:44] LABS: INR 1.5 (0.83-1.09); PROTHROMBIN TIME (PATIENT) 17.8 SEC (9.7-13.0)
--- NOTE | 2018-05-22 08:50 | PN ---
Physical Exam: SUBJECTIVE: Patient seen and examined at the bedside at the bedside. OBJECTIVE: start on librium protocol for etoh w/drawal. patient noted to be irritable, moderate arm tremors, moderately anxious, fidgety. Per Rn verbal report, patient also talking to herself. Vital Signs Period Temp Pulse Resp BP Sys/Pulliam Pulse Ox Last 24 Hr 97.5 F-97.9 F 55-93 18-20 109-122/75-77 98 GENERAL: Awake, alert, and fully oriented, restless HEAD: Normal with no signs of trauma. EYES: Pupils equal, round and reactive to light, extraocular movements intact, sclera anicteric, conjunctiva clear. No lid lag. EARS, NOSE, THROAT: Ears normal, nares patent, oropharynx clear without exudates. Moist mucous membranes. NECK: Normal range of motion, supple without lymphadenopathy, JVD, or masses. LUNGS: Breath sounds equal, clear to auscultation bilaterally. HEART: Regular rate and rhythm ABDOMEN: distended, ctap consistent with large amt of ascites. abdominal pain and discomfort for diagnosis tap/paracenteis. MUSCULOSKELETAL: Normal range of motion at all joints. No bony deformities or tenderness. No CVA tenderness. UPPER EXTREMITIES: No peripheral edema. LOWER EXTREMITIES: No peripheral edema. NEUROLOGICAL: Normal speech. Normal gait. Laboratory Results - last 24 hr 05/21/18 05/21/18 05/21/18 10:15 10:15 10:45 WBC 7.1 RBC 3.11 L Hgb 10.6 L Hct 30.8 L D MCV 98.8 H MCH 33.9 H MCHC 34.3 RDW 18.1 H Plt Count 128 L MPV 9.2 Absolute Neuts (auto) 3.1 Neutrophils % 43.3 D Lymphocytes % 41.4 H D Monocytes % 11.8 H Eosinophils % 2.6 Basophils % 0.9 Nucleated RBC % 0 PT with INR INR Sodium 139 Potassium 3.8 Chloride 104 Carbon Dioxide 24 Anion Gap 11 BUN 3 L Creatinine 0.5 L Creat Clearance w eGFR > 60 POC Glucometer Random Glucose 92 Calcium 7.6 L Magnesium 1.2 L Cancelled Total Bilirubin 1.5 H AST 48 H ALT 13 Alkaline Phosphatase 101 Ammonia Total Protein 7.5 Albumin 2.0 L 05/21/18 05/21/18 05/21/18 12:11 21:28 21:45 WBC RBC Hgb Hct MCV MCH MCHC RDW Plt Count MPV Absolute Neuts (auto) Neutrophils % Lymphocytes % Monocytes % Eosinophils % Basophils % Nucleated RBC % PT with INR INR Sodium Potassium Chloride Carbon Dioxide Anion Gap BUN Creatinine Creat Clearance w eGFR POC Glucometer 94 143 Random Glucose Calcium Magnesium Total Bilirubin AST ALT Alkaline Phosphatase Ammonia 63.41 H Total Protein Albumin 05/22/18 05/22/18 05/22/18 06:00 06:00 06:15 WBC RBC Hgb Hct MCV MCH MCHC RDW Plt Count MPV Absolute Neuts (auto) Neutrophils % Lymphocytes % Monocytes % Eosinophils % Basophils % Nucleated RBC % PT with INR 17.80 H INR 1.50 H Sodium Potassium Chloride Carbon Dioxide Anion Gap BUN Creatinine Creat Clearance w eGFR POC Glucometer 101 Random Glucose Calcium Magnesium Total Bilirubin AST ALT Alkaline Phosphatase Ammonia 53.74 H Total Protein Albumin Active Medications Generic Name Dose Route Start Last Admin Trade Name Freq PRN Reason Stop Dose Admin Acetaminophen 650 mg 05/21/18 14:15 05/21/18 17:12 Tylenol - PO 05/24/18 14:14 650 mg Q4H PRN Administration PAIN SCALE 6-10 Ceftriaxone Sodium 2 gm/ 100 mls @ 200 mls/hr 05/21/18 10:00 05/21/18 09:12 Dextrose IVPB 05/22/18 09:59 200 mls/hr DAILY TARAN Administration Protocol Insulin Aspart 1 vial 05/21/18 22:00 05/22/18 06:16 Novolog Vial Sliding Scale - SQ Not Given ACHS TARAN Protocol Lorazepam 1 mg 05/21/18 18:52 Ativan Injection - IVPUSH Q6H PRN ETOH withdrawal Oxycodone HCl 10 mg 05/21/18 14:15 05/22/18 06:16 Roxicodone - PO 10 mg Q4H PRN Administration PAIN SCALE 6-10 Pantoprazole Sodium 40 mg 05/22/18 10:00 Protonix - PO DAILY TARAN Phytonadione 5 mg 05/22/18 10:00 Mephyton - PO 05/25/18 09:59 DAILY TARAN Spironolactone 25 mg 05/21/18 22:00 05/21/18 21:31 Aldactone - PO 25 mg BID TARAN Administration Thiamine HCl 100 mg 05/22/18 10:00 Vitamin B1 - PO DAILY TARAN ASSESSMENT/PLAN: Patient is a 42 year old female with a significant past medical history of ETOH abuse, diabetes, hep C, fatty liver, with possible cirrhosis. She presents to the ED from [facility] (was about to start rehab for ETOH abuse), for increased in abdominal girth and abdominal pain. --------- Abdominal pain ETOH abuse Diabetes Hep C Fatty liver Ascites Liver Cirrh Electroyte imbalance possible SBP Lactate elevated, hyponatremic, hypokalemic facial twitches elevated ammonia level ----- Imaging: ct abd pelvis: large amt of free intraperitoneal fluid seen within abd and pelvis. multiple right hepatic lobe hypodense lesions are noted which may be in the basis of neoplastic disease. peripancreatic sot tissue stranding noted which could be due to acute pancreatitis GI: Abdominal pain Pancreatitis per CT/rule out sbp/abdominal ascites As per GI, likely not pancreatitis. started on clears by GI diagnostic paracentesis ordered by GI Repeat ammonia levels noted MRCP pending Hypodense lesions, possible neoplastic disease per CT. tumor markers pending. GI following. Psyche: ETOH abuse. last drink reported to be 1 week ago. Start on librium protocol for signs of etoh w/drawal. patient noted to be irritable, moderate arm tremors, moderately anxious, fidgety. Per Rn verbal report, patient also talking to herself and may have been hallucinating. Endocrine: Diabetes: novolog ss, bgms fen npo ivf prophy protonix full code. Visit type - Emergency Visit Emergency Visit: Yes ED Registration Date: 05/20/18 Care time: The patient presented to the Emergency Department on the above date and was hospitalized for further evaluation of their emergent condition. - New Patient This patient is new to me today: No - Critical Care Critical Care patient: No - Discharge Referral Referred to [facility] Med [facility] No
[2018-05-22] MEDS ORDERED: DEXTROSE 5%-WATER 100 ML IVPB ONE (10:34)
[2018-05-22] MEDS ORDERED: PT OWN MED DRAWER 7, Y5N ONE (10:34)
[2018-05-22] MEDS: SPIRONOLACTONE 25 MG TABLET (FP) PO SCH ×2 (10:40→22:09)
[2018-05-22] MEDS: PANTOPRAZOLE 40 MG TABLET (FP) PO SCH (10:40)
[2018-05-22] MEDS: THIAMINE HCL 100 MG TABLET (FP) PO SCH (10:40)
[2018-05-22] MEDS: PHYTONADIONE 5 MG TABLET PO SCH (10:41)
[2018-05-22 10:45] LABS: BASO % 1.3 % (0-2.0); EOS % 3.5 % (0-4.5); HEMATOCRIT 30.6 % (32.4-45.2); HEMOGLOBIN 10.7 GM/dL (10.7-15.3); LYMPH % 25.5 % (8-40); MCH 34.4 pg (25.7-33.7); MCHC 35.1 g/dl (32.0-36.0); MEAN CELL VOLUME 97.9 fl (80-96); MEAN PLT VOLUME 8.5 fl (7.5-11.1); MONO % 12.7 % (3.8-10.2); PLATELET COUNT 161 K/MM3 (134-434); RBC 3.12 M/mm3 (3.60-5.2); RDW 17.8 % (11.6-15.6)
[2018-05-22 10:54] LABS: ALBUMIN 2.2 g/dl (3.4-5.0); ALK PHOS 107 U/L (45-117); ANION GAP 7 MMOL/L (8-16); BILIRUBIN,DIRECT 1.1 mg/dL (0.0-0.2); BILIRUBIN,TOTAL 1.6 mg/dL (0.2-1); BLOOD UREA NITROGEN 3 mg/dL (7-18); CALCIUM 8.2 mg/dL (8.5-10.1); CHLORIDE 100 mmol/L (98-107); CO2 28 mmol/L (21-32); CREATININE 0.5 mg/dL (0.55-1.3); GLUCOSE,RANDOM 101 mg/dL (74-106); MAGNESIUM 1.5 mg/dL (1.8-2.4); POTASSIUM 3.6 mmol/L (3.5-5.1); SGOT/AST 50 U/L (15-37); SGPT/ALT 13 U/L (13-61); SODIUM 134 mmol/L (136-145); TOT PROT 8.4 g/dl (6.4-8.2)
[2018-05-22] MEDS: ACETAMINOPHEN 325 MG TABLET (FP) PO PRN ×2 (11:07→15:19)
[2018-05-22] MEDS ORDERED: INSULIN (NOVOLOG) ASPART 100 UNITS/ML 10ML VIAL ONE (11:11)
[2018-05-22 11:18] LABS: ALBUMIN 2.2 g/dl (3.4-5.0); ALK PHOS 103 U/L (45-117); ANION GAP 10 MMOL/L (8-16); BILIRUBIN,TOTAL 1.6 mg/dL (0.2-1); BLOOD UREA NITROGEN 3 mg/dL (7-18); CALCIUM 7.8 mg/dL (8.5-10.1); CHLORIDE 101 mmol/L (98-107); CO2 24 mmol/L (21-32); CREATININE 0.5 mg/dL (0.55-1.3); GLUCOSE,RANDOM 119 mg/dL (74-106); POTASSIUM 3.6 mmol/L (3.5-5.1); SGOT/AST 49 U/L (15-37); SGPT/ALT 12 U/L (13-61); SODIUM 134 mmol/L (136-145)
--- NOTE | 2018-05-22 12:30 | PN ---
Progress Note, Physician - Current Medication List Current Medications: Active Medications Acetaminophen (Tylenol -) 650 mg PO Q4H PRN PRN Reason: PAIN SCALE 6-10 Stop: 05/24/18 14:14 Last Admin: 05/22/18 11:07 Dose: 650 mg Insulin Aspart (Novolog Vial Sliding Scale -) 1 vial SQ ACHS [facility]; Protocol Last Admin: 05/22/18 11:13 Dose: 2 units Lorazepam (Ativan Injection -) 1 mg IVPUSH Q6H PRN PRN Reason: ETOH withdrawal Oxycodone HCl (Roxicodone -) 10 mg PO Q4H PRN PRN Reason: PAIN SCALE 6-10 Last Admin: 05/22/18 11:07 Dose: 10 mg Pantoprazole Sodium (Protonix -) 40 mg PO DAILY [facility] Last Admin: 05/22/18 10:40 Dose: 40 mg Phytonadione (Mephyton -) 5 mg PO DAILY [facility] Stop: 05/25/18 09:59 Last Admin: 05/22/18 10:41 Dose: 5 mg Spironolactone (Aldactone -) 25 mg PO BID [facility] Last Admin: 05/22/18 10:40 Dose: 25 mg Thiamine HCl (Vitamin B1 -) 100 mg PO DAILY [facility] Last Admin: 05/22/18 10:40 Dose: 100 mg - Objective Vital Signs: Vital Signs Temperature 97.8 F 05/22/18 10:45 Pulse Rate 100 H 05/22/18 10:45 Respiratory Rate 19 05/22/18 10:45 Blood Pressure 121/86 05/22/18 10:45 O2 Sat by Pulse Oximetry (%) 98 05/22/18 09:00 Labs: CBC, BMP 05/22/18 10:35 05/22/18 10:40 INR, PTT INR 1.50 (0.83-1.09) H 05/22/18 06:00
[2018-05-22] MEDS ORDERED: chlordiazePOXIDE HCL 25 MG CAPSULE PO PRN (15:50)
[2018-05-22] MEDS: AMOX TR/POT CLAV 875MG/125MG TABLETS (FP) PO SCH (16:57)
[2018-05-22] MEDS: chlordiazePOXIDE HCL 25 MG CAPSULE PO SCH ×2 (16:57→22:09)
--- NOTE | 2018-05-22 17:05 | PN ---
GI Progress Note Subjective: GI Note: Tanna has been more irritable today according to the nurse and has been started on Librium detox. MRCP reveals slightly dilated CBD but no stones and LFTs are stable. Tanna's pain appears to be due to abdominal distension and not due to pancreatitis so can stop narcotics and will advance her diet - Objective Vital Signs: Vital Signs Temperature 98.6 F 05/22/18 14:49 Pulse Rate 94 H 05/22/18 14:49 Respiratory Rate 20 05/22/18 14:49 Blood Pressure 117/83 05/22/18 14:49 O2 Sat by Pulse Oximetry (%) 98 05/22/18 09:00 Laboratory Tests 05/20/18 05/20/18 05/20/18 14:15 14:15 14:15 Lactic Acid 2.2 H* Total Bilirubin 2.4 H Direct Bilirubin AST 63 H ALT 15 Alkaline Phosphatase 147 H Total Amylase 35 Lipase 56 L 05/21/18 05/22/18 10:15 10:40 Lactic Acid Total Bilirubin 1.5 H 1.6 H Direct Bilirubin 1.1 H AST 50 H ALT 13 Alkaline Phosphatase 101 107 Total Amylase Lipase Constitutional: Anxious ...Auscultate: Yes: Normoactive Bowel Sounds ...Palpate: Yes: Soft, Other (nontender) Labs: CBC, BMP 05/22/18 10:35 05/22/18 10:40 INR, PTT INR 1.50 (0.83-1.09) H 05/22/18 06:00 Assessment/Plan Await MRI reading Paracentesis Increase Aldactone Librium detox started- discussed with OPAL B[place] Dr will return 05/23. Problem List - Problems (1) Alcoholic cirrhosis of liver with ascites Assessment/Plan: For paracentesis tomorrow. Alcohol detox started. Will advance diet. Await MRI with contrast to exclude liver lesions. I will increase her Aldactone to TID. Code(s): K70.31 - ALCOHOLIC CIRRHOSIS OF LIVER WITH ASCITES (2) History of pancreatitis Code(s): Z87.19 - PERSONAL HISTORY OF OTHER DISEASES OF THE DIGESTIVE SYSTEM (3) History of laparoscopic cholecystectomy Code(s): Z90.49 - ACQUIRED ABSENCE OF OTHER SPECIFIED PARTS OF DIGESTIVE TRACT (4) Alcohol dependence Code(s): F10.20 - ALCOHOL DEPENDENCE, UNCOMPLICATED (5) Type 2 diabetes mellitus Code(s): E11.9 - TYPE 2 DIABETES MELLITUS WITHOUT COMPLICATIONS Qualifiers: Diabetes mellitus assisted insulin use: unspecified assisted insulin use status (6) Alcohol withdrawal Code(s): F10.239 - ALCOHOL DEPENDENCE WITH WITHDRAWAL, UNSPECIFIED
[2018-05-23] MEDS: chlordiazePOXIDE HCL 25 MG CAPSULE PO SCH ×4 (06:05→23:02)
[2018-05-23 06:06] LABS: SERUM IRON SATURATION 16 % (15-55); TOTAL IRON BINDING CAPACITY 201 ug/dL (250-450); UIBC 168 ug/dL (131-425)
[2018-05-23] MEDS: INSULIN SLIDING SCALE (NOVOLOG) 1 VIAL SQ SCH ×4 (06:08→21:11)
[2018-05-23 07:53] LABS: BASO % 1.1 % (0-2.0); EOS % 3.6 % (0-4.5); HEMATOCRIT 30.6 % (32.4-45.2); HEMOGLOBIN 10.5 GM/dL (10.7-15.3); LYMPH % 37.1 % (8-40); MCHC 34.4 g/dl (32.0-36.0); MEAN CELL VOLUME 98.7 fl (80-96); MEAN PLT VOLUME 8.5 fl (7.5-11.1); MONO % 11.5 % (3.8-10.2); NEUT % 46.7 % (42.8-82.8); PLATELET COUNT 182 K/MM3 (134-434); RDW 17.8 % (11.6-15.6); WHITE BLOOD COUNT 5.8 K/mm3 (4.0-10.0)
[2018-05-23 07:57] LABS: ALBUMIN 2.1 g/dl (3.4-5.0); ALK PHOS 126 U/L (45-117); ANION GAP 9 MMOL/L (8-16); BILIRUBIN,DIRECT 0.8 mg/dL (0.0-0.2); BILIRUBIN,TOTAL 1.1 mg/dL (0.2-1); BLOOD UREA NITROGEN 3 mg/dL (7-18); CALCIUM 8.1 mg/dL (8.5-10.1); CHLORIDE 103 mmol/L (98-107); CO2 26 mmol/L (21-32); CREATININE 0.5 mg/dL (0.55-1.3); GLUCOSE,RANDOM 132 mg/dL (74-106); POTASSIUM 3.9 mmol/L (3.5-5.1); SGOT/AST 43 U/L (15-37); SGPT/ALT 14 U/L (13-61); SODIUM 138 mmol/L (136-145); TOT PROT 7.7 g/dl (6.4-8.2)
[2018-05-23 08:05] LABS: INR 1.56 (0.83-1.09); PROTHROMBIN TIME (PATIENT) 18.5 SEC (9.7-13.0)
[2018-05-23] MEDS: THIAMINE HCL 100 MG TABLET (FP) PO SCH (09:04)
[2018-05-23] MEDS: PANTOPRAZOLE 40 MG TABLET (FP) PO SCH (09:04)
[2018-05-23] MEDS: AMOX TR/POT CLAV 875MG/125MG TABLETS (FP) PO SCH ×2 (09:04→17:34)
[2018-05-23] MEDS: SPIRONOLACTONE 25 MG TABLET (FP) PO SCH ×2 (09:05→21:14)
[2018-05-23] MEDS: PHYTONADIONE 5 MG TABLET PO SCH (09:05)
[2018-05-23 09:20] LABS: MAGNESIUM 1.3 mg/dL (1.8-2.4)
[2018-05-23] MEDS ORDERED: MAGNESIUM SULF 50% (8.12 MEQ/2 ML-1 GM VIAL) IVPB ONE (09:41)
--- NOTE | 2018-05-23 10:02 | PN ---
GI Progress Note Subjective: No acute events No abdominal pain Found sitting up in chair and states feeling well - Objective Vital Signs: Vital Signs Temperature 98.1 F 05/23/18 08:08 Pulse Rate 93 H 05/23/18 08:08 Respiratory Rate 18 05/23/18 08:08 Blood Pressure 101/76 05/23/18 08:08 O2 Sat by Pulse Oximetry (%) 98 05/22/18 21:00 Constitutional: Calm Eyes: No: Sclera Icterus Cardiovascular: Yes: Regular Rate and Rhythm Respiratory: Yes: CTA Bilaterally Gastrointestinal Inspection: Yes: Distention ...Auscultate: Yes: Normoactive Bowel Sounds ...Palpate: Yes: Soft. No: Hepatomegaly, Splenomegaly, Tenderness ...Percussion: Yes: Dullness. No: Tympanitic Edema: No (No LE edema) Neurological: Yes: Alert, Oriented, Tremors. No: Asterixis Labs: CBC, BMP 05/23/18 07:15 05/23/18 07:15 INR, PTT INR 1.56 (0.83-1.09) H 05/23/18 07:15 Problem List - Problems (1) Ascitic fluid Assessment/Plan: Suspect component of alcoholic hepatitis with underlying chronic liver disease. Given non-contrast CT scan findings, malignant process will need to be excluded as well For diagnostic/therapeutic paracentesis today Ordered fluid: Cell count with Diff Culture Albumin Total protein LDH GLucose AFB culture/smear Cytology form attached to front of physical chart as well Advised complete alcohol cessation AFP and hepatitis serologies pending Await official read of contrast MRI/MRCP Discussed findings with Ms. Rose and possibiltiy that CT scan findings could reflect a malignant process Code(s): R18.8 - OTHER ASCITES
--- NOTE | 2018-05-23 13:07 | PN ---
Progress Note, Physician History of Present Illness: doing well no issues paracentesis today abd pain better - Current Medication List Current Medications: Active Medications Acetaminophen (Tylenol -) 650 mg PO Q4H PRN PRN Reason: PAIN SCALE 6-10 Stop: 05/24/18 14:14 Last Admin: 05/22/18 15:19 Dose: 650 mg Amoxicillin/Clavulanate Potassium (Augmentin - 875mg Tablet) 1 tab PO BID@0800, 1730 [facility] Last Admin: 05/23/18 09:04 Dose: 1 tab Chlordiazepoxide HCl (Librium -) 25 mg PO [id number] [facility] Stop: 05/24/18 11:01 Chlordiazepoxide HCl (Librium -) 15 mg PO [id number] [facility] Stop: 05/25/18 11:01 Chlordiazepoxide HCl (Librium -) 25 mg PO Q4H PRN PRN Reason: WITHDRAWAL(CONT SUBST) Stop: 05/25/18 15:49 Chlordiazepoxide HCl (Librium -) 10 mg PO [id number] [facility] Stop: 05/26/18 11:01 Insulin Aspart (Novolog Vial Sliding Scale -) 1 vial SQ [facility]; Protocol Last Admin: 05/23/18 12:28 Dose: 2 units Oxycodone HCl (Roxicodone -) 5 mg PO Q6H PRN PRN Reason: PAIN SCALE 6-10 Pantoprazole Sodium (Protonix -) 40 mg PO DAILY [facility] Last Admin: 05/23/18 09:04 Dose: 40 mg Phytonadione (Mephyton -) 5 mg PO DAILY [facility] Stop: 05/25/18 09:59 Last Admin: 05/23/18 09:05 Dose: 5 mg Spironolactone (Aldactone -) 25 mg PO BID [facility] Last Admin: 05/23/18 09:05 Dose: 25 mg Thiamine HCl (Vitamin B1 -) 100 mg PO DAILY [facility] Last Admin: 05/23/18 09:04 Dose: 100 mg - Objective Vital Signs: Vital Signs Temperature 98.1 F 05/23/18 08:08 Pulse Rate 93 H 05/23/18 08:08 Respiratory Rate 18 05/23/18 08:08 Blood Pressure 101/76 05/23/18 08:08 O2 Sat by Pulse Oximetry (%) 99 05/23/18 08:00 Constitutional: Yes: No Distress, Calm Cardiovascular: Yes: Regular Rate and Rhythm Respiratory: Yes: Regular, CTA Bilaterally Gastrointestinal: Yes: Soft, Ascites, Distention Musculoskeletal: Yes: WNL Extremities: Yes: WNL Neurological: Yes: Alert, Oriented Psychiatric: Yes: Alert, Oriented Labs: CBC, BMP 05/23/18 07:15 05/23/18 07:15 INR, PTT INR 1.56 (0.83-1.09) H 05/23/18 07:15 Assessment/Plan Abdominal pain ETOH abuse Diabetes Hep C Fatty liver Ascites Liver Cirrh Electroyte imbalance possible SBP Lactate elevated, hyponatremic, hypokalemic r/o sbp r/o malignancy plan continue ceftriaxone tap the fluid and r/o sbp and malignancy continue close monitoring for any fevers rest as per the team should get tapped
[2018-05-23 15:58] LABS: PERITONEAL RBC 562 /mm3
--- NOTE | 2018-05-23 17:54 | PN ---
Physical Exam: SUBJECTIVE: Patient seen and examined. feel better, less irritable, reported to be more cooperative. OBJECTIVE: librium taper day #2 Vital Signs Period Temp Pulse Resp BP Sys/Pulliam Pulse Ox Last 24 Hr 97.5 F-98.4 F 18-93 18-20 101-117/48-88 98-99 GENERAL: Awake, alert, and fully oriented, restless HEAD: Normal with no signs of trauma. EYES: Pupils equal, round and reactive to light, extraocular movements intact, sclera anicteric, conjunctiva clear. No lid lag. EARS, NOSE, THROAT: Ears normal, nares patent, oropharynx clear without exudates. Moist mucous membranes. NECK: Normal range of motion, supple without lymphadenopathy, JVD, or masses. LUNGS: Breath sounds equal, clear to auscultation bilaterally. HEART: Regular rate and rhythm ABDOMEN: distended, ctap consistent with large amt of ascites. abdominal pain and discomfort for diagnosis tap/paracenteis. MUSCULOSKELETAL: Normal range of motion at all joints. No bony deformities or tenderness. No CVA tenderness. UPPER EXTREMITIES: No peripheral edema. LOWER EXTREMITIES: No peripheral edema. NEUROLOGICAL: Normal speech. Normal gait. Laboratory Results - last 24 hr 05/22/18 05/22/18 05/23/18 06:00 22:08 06:07 WBC RBC Hgb Hct MCV MCH MCHC RDW Plt Count MPV Absolute Neuts (auto) Neutrophils % Lymphocytes % Monocytes % Eosinophils % Basophils % Nucleated RBC % PT with INR INR Sodium Potassium Chloride Carbon Dioxide Anion Gap BUN Creatinine Creat Clearance w eGFR POC Glucometer 153 139 Random Glucose Calcium Magnesium Iron 33 TIBC 201 L Iron Saturation 16 Total Bilirubin Direct Bilirubin AST ALT Alkaline Phosphatase Ammonia C-Reactive Protein Total Protein Albumin Total Amylase Lipase Peritoneal WBC Peritoneal RBC Hep C Ab Diagnostic 0.1 05/23/18 05/23/18 05/23/18 07:15 07:15 07:15 WBC 5.8 RBC 3.10 L Hgb 10.5 L Hct 30.6 L MCV 98.7 H MCH 34.0 H MCHC 34.4 RDW 17.8 H Plt Count 182 MPV 8.5 Absolute Neuts (auto) 2.7 Neutrophils % 46.7 Lymphocytes % 37.1 D Monocytes % 11.5 H Eosinophils % 3.6 Basophils % 1.1 Nucleated RBC % 0 PT with INR INR Sodium 138 Potassium 3.9 Chloride 103 Carbon Dioxide 26 Anion Gap 9 BUN 3 L Creatinine 0.5 L Creat Clearance w eGFR > 60 POC Glucometer Random Glucose 132 H Calcium 8.1 L Magnesium 1.3 L Iron TIBC Iron Saturation Total Bilirubin 1.1 H Direct Bilirubin 0.8 H AST 43 H ALT 14 Alkaline Phosphatase 126 H Ammonia C-Reactive Protein 0.7 H Total Protein 7.7 Albumin 2.1 L Total Amylase 50 Lipase 46 L Peritoneal WBC Peritoneal RBC Hep C Ab Diagnostic 05/23/18 05/23/18 05/23/18 07:15 07:15 11:20 WBC RBC Hgb Hct MCV MCH MCHC RDW Plt Count MPV Absolute Neuts (auto) Neutrophils % Lymphocytes % Monocytes % Eosinophils % Basophils % Nucleated RBC % PT with INR 18.50 H INR 1.56 H Sodium Potassium Chloride Carbon Dioxide Anion Gap BUN Creatinine Creat Clearance w eGFR POC Glucometer Random Glucose Calcium Magnesium Iron TIBC Iron Saturation Total Bilirubin Direct Bilirubin AST ALT Alkaline Phosphatase Ammonia 65.90 H C-Reactive Protein Total Protein Albumin Total Amylase Lipase Peritoneal WBC 616 Peritoneal RBC 562 Hep C Ab Diagnostic 05/23/18 12:27 WBC RBC Hgb Hct MCV MCH MCHC RDW Plt Count MPV Absolute Neuts (auto) Neutrophils % Lymphocytes % Monocytes % Eosinophils % Basophils % Nucleated RBC % PT with INR INR Sodium Potassium Chloride Carbon Dioxide Anion Gap BUN Creatinine Creat Clearance w eGFR POC Glucometer 161 Random Glucose Calcium Magnesium Iron TIBC Iron Saturation Total Bilirubin Direct Bilirubin AST ALT Alkaline Phosphatase Ammonia C-Reactive Protein Total Protein Albumin Total Amylase Lipase Peritoneal WBC Peritoneal RBC Hep C Ab Diagnostic Active Medications Generic Name Dose Route Start Last Admin Trade Name Alejoq PRN Reason Stop Dose Admin Acetaminophen 650 mg 05/21/18 14:15 05/22/18 15:19 Tylenol - PO 05/24/18 14:14 650 mg Q4H PRN Administration PAIN SCALE 6-10 Amoxicillin/Clavulanate Potassium 1 tab 05/22/18 17:30 05/23/18 17:34 Augmentin - 875mg Tablet PO 1 tab BID@0800,1730 TARAN Administration Chlordiazepoxide HCl 25 mg 05/23/18 17:00 05/23/18 17:34 Librium - PO 05/24/18 11:01 25 mg [id number] TARAN Administration Chlordiazepoxide HCl 15 mg 05/24/18 17:00 Librium - PO 11/07/18 11:01 [id number] TARAN Chlordiazepoxide HCl 25 mg 05/22/18 15:50 Librium - PO 05/25/18 15:49 Q4H PRN WITHDRAWAL(CONT SUBST) Chlordiazepoxide HCl 10 mg 05/25/18 17:00 Librium - PO 05/26/18 11:01 [id number] TARAN Insulin Aspart 1 vial 05/21/18 22:00 05/23/18 17:36 Novolog Vial Sliding Scale - SQ 2 units ACHS TARAN Administration Protocol Oxycodone HCl 5 mg 05/22/18 15:49 Roxicodone - PO Q6H PRN PAIN SCALE 6-10 Pantoprazole Sodium 40 mg 05/22/18 10:00 05/23/18 09:04 Protonix - PO 40 mg DAILY TARAN Administration Phytonadione 5 mg 05/22/18 10:00 05/23/18 09:05 Mephyton - PO 05/25/18 09:59 5 mg DAILY TARAN Administration Spironolactone 25 mg 05/21/18 22:00 05/23/18 09:05 Aldactone - PO 25 mg BID TARAN Administration Thiamine HCl 100 mg 05/22/18 10:00 05/23/18 09:04 Vitamin B1 - PO 100 mg DAILY TARAN Administration ASSESSMENT/PLAN: Patient is a 42 year old female with a significant past medical history of ETOH abuse, diabetes, hep C, fatty liver, with possible cirrhosis. She presents to the ED from [facility] (was about to start rehab for ETOH abuse), for increased in abdominal girth and abdominal pain. --------- Abdominal pain ETOH abuse Diabetes Hep C Fatty liver Ascites Liver Cirrh Electroyte imbalance possible SBP Lactate elevated, hyponatremic, hypokalemic facial twitches elevated ammonia level ----- Imaging: ct abd pelvis: large amt of free intraperitoneal fluid seen within abd and pelvis. multiple right hepatic lobe hypodense lesions are noted which may be in the basis of neoplastic disease. peripancreatic sot tissue stranding noted which could be due to acute pancreatitis GI: Abdominal pain, improving Pancreatitis per CT/rule out sbp/abdominal ascites As per GI, likely not pancreatitis. patient is s/p diagnosist paracentesis today with 2 liters removed. MRCP pending Hypodense lesions, possible neoplastic disease per CT. tumor markers pending. GI following. Psyche: ETOH abuse. last drink reported to be 1 week ago. Start on librium protocol for signs of etoh w/drawal. patient noted to be irritable, moderate arm tremors, moderately anxious, fidgety. Per Rn verbal report, patient also talking to herself and may have been hallucinating. Endocrine: Diabetes: novolog ss, bgms hmga1c in a.m. fen npo ivf prophy protonix full code. Visit type - Emergency Visit Emergency Visit: Yes ED Registration Date: 05/20/18 Care time: The patient presented to the Emergency Department on the above date and was hospitalized for further evaluation of their emergent condition. - New Patient This patient is new to me today: No - Critical Care Critical Care patient: No - Discharge Referral Referred to [facility] Med P.C.: No
[2018-05-23] MEDS ORDERED: INSULIN (NOVOLOG) ASPART 100 UNITS/ML 10ML VIAL ONE (20:51)
[2018-05-23] MEDS: ACETAMINOPHEN 325 MG TABLET (FP) PO PRN (21:12)
[2018-05-23] MEDS: oxyCODONE HCL 5 MG TABLET PO PRN (21:13)
[2018-05-23] MEDS: MAGNESIUM OXIDE 400 MG TABLET (FP) PO SCH (21:13)
[2018-05-24] MEDS: ACETAMINOPHEN 325 MG TABLET (FP) PO PRN (02:03)
[2018-05-24] MEDS: oxyCODONE HCL 5 MG TABLET PO PRN ×3 (02:16→21:20)
[2018-05-24] MEDS: chlordiazePOXIDE HCL 25 MG CAPSULE PO SCH ×2 (05:01→11:40)
[2018-05-24] MEDS: INSULIN SLIDING SCALE (NOVOLOG) 1 VIAL SQ SCH ×4 (06:22→21:17)
[2018-05-24] MEDS ORDERED: PT OWN MED DRAWER 7, Y5N ONE ×3 (06:26→20:42)
[2018-05-24] MEDS ORDERED: INSULIN (NOVOLOG) ASPART 100 UNITS/ML 10ML VIAL ONE ×3 (06:26→20:42)
[2018-05-24 08:51] LABS: BASO % 0.9 % (0-2.0); EOS % 1.7 % (0-4.5); HEMATOCRIT 32.2 % (32.4-45.2); HEMOGLOBIN 10.3 GM/dL (10.7-15.3); LYMPH % 43.6 % (8-40); MCH 31.7 pg (25.7-33.7); MCHC 32.1 g/dl (32.0-36.0); MEAN CELL VOLUME 98.7 fl (80-96); MEAN PLT VOLUME 7.8 fl (7.5-11.1); NEUT % 40.8 % (42.8-82.8); PLATELET COUNT 205 K/MM3 (134-434); RBC 3.27 M/mm3 (3.60-5.2); RDW 18.6 % (11.6-15.6); WHITE BLOOD COUNT 7.6 K/mm3 (4.0-10.0)
[2018-05-24] MEDS: AMOX TR/POT CLAV 875MG/125MG TABLETS (FP) PO SCH ×2 (08:57→17:21)
[2018-05-24] MEDS: THIAMINE HCL 100 MG TABLET (FP) PO SCH (09:50)
[2018-05-24] MEDS: PANTOPRAZOLE 40 MG TABLET (FP) PO SCH (09:50)
[2018-05-24] MEDS: PHYTONADIONE 5 MG TABLET PO SCH (09:50)
[2018-05-24] MEDS: MAGNESIUM OXIDE 400 MG TABLET (FP) PO SCH ×2 (09:50→21:18)
[2018-05-24 09:51] LABS: ALK PHOS 178 U/L (45-117); ANION GAP 8 MMOL/L (8-16); BILIRUBIN,DIRECT 0.8 mg/dL (0.0-0.2); BLOOD UREA NITROGEN 4 mg/dL (7-18); CHLORIDE 104 mmol/L (98-107); CO2 27 mmol/L (21-32); CREATININE 0.5 mg/dL (0.55-1.3); GLUCOSE,RANDOM 66 mg/dL (74-106); MAGNESIUM 1.4 mg/dL (1.8-2.4); POTASSIUM 4.1 mmol/L (3.5-5.1); SGOT/AST 39 U/L (15-37); SGPT/ALT 13 U/L (13-61); SODIUM 139 mmol/L (136-145); TOT PROT 7.8 g/dl (6.4-8.2)
[2018-05-24] MEDS: SPIRONOLACTONE 25 MG TABLET (FP) PO SCH ×2 (09:51→21:18)
[2018-05-24] MEDS ORDERED: MAGNESIUM SULF 50% (8.12 MEQ/2 ML-1 GM VIAL) IVPB ONE (10:27)
--- NOTE | 2018-05-24 10:29 | PN ---
Physical Exam: SUBJECTIVE: Patient seen and examined; further results pending from the tap; MRCP read. In good spirits. Pain controlled with current regimine. No events reported overnight. Afebrile and hemodynamically stable. 10 sys ROS done and negative aside from HPI. OBJECTIVE: Vital Signs Period Temp Pulse Resp BP Sys/Pulliam Pulse Ox Last 24 Hr 97.9 F-98.6 F 87-103 19-20 107-117/66-81 97 GENERAL: The patient is awake, alert, and fully oriented, in no acute distress. HEAD: Normal with no signs of trauma. EYES: PERRL, extraocular movements intact, sclera anicteric, conjunctiva clear. No ptosis. ENT: Ears normal, nares patent, oropharynx clear without exudates, moist mucous membranes. NECK: Trachea midline, full range of motion, supple. LUNGS: Breath sounds equal, clear to auscultation bilaterally, no wheezes HEART: Regular rate and rhythm, S1, S2 without murmur, rub or gallop. ABDOMEN: Soft, mildlytender, distended with positive fluid wave, normoactive bowel sounds EXTREMITIES: 2+ pulses, warm, well-perfused, no edema. NEUROLOGICAL: Cranial nerves II through XII grossly intact. Normal speech PSYCH: Normal mood, normal affect. SKIN: Warm, dry, normal turgor, no rashes or lesions noted Laboratory Results - last 24 hr 05/22/18 05/23/18 05/23/18 06:00 11:20 12:27 WBC RBC Hgb Hct MCV MCH MCHC RDW Plt Count MPV Absolute Neuts (auto) Neutrophils % Lymphocytes % Monocytes % Eosinophils % Basophils % Nucleated RBC % Sodium Potassium Chloride Carbon Dioxide Anion Gap BUN Creatinine Creat Clearance w eGFR POC Glucometer 161 Random Glucose Hemoglobin A1c % Calcium Magnesium Total Bilirubin Direct Bilirubin AST ALT Alkaline Phosphatase Total Protein Albumin Tumor Marker AFP 3.5 Peritoneal WBC 616 Peritoneal RBC 562 Periton Neutrophils 1 Peritoneal Other Cells 99 synovial lining c Hep C Ab Diagnostic 0.1 05/23/18 05/23/18 05/24/18 17:36 21:10 02:41 WBC RBC Hgb Hct MCV MCH MCHC RDW Plt Count MPV Absolute Neuts (auto) Neutrophils % Lymphocytes % Monocytes % Eosinophils % Basophils % Nucleated RBC % Sodium Potassium Chloride Carbon Dioxide Anion Gap BUN Creatinine Creat Clearance w eGFR POC Glucometer 177 202 145 Random Glucose Hemoglobin A1c % Calcium Magnesium Total Bilirubin Direct Bilirubin AST ALT Alkaline Phosphatase Total Protein Albumin Tumor Marker AFP Peritoneal WBC Peritoneal RBC Periton Neutrophils Peritoneal Other Cells Hep C Ab Diagnostic 05/24/18 05/24/18 05/24/18 06:00 06:20 08:35 WBC RBC Hgb Hct MCV MCH MCHC RDW Plt Count MPV Absolute Neuts (auto) Neutrophils % Lymphocytes % Monocytes % Eosinophils % Basophils % Nucleated RBC % Sodium 139 Potassium 4.1 Chloride 104 Carbon Dioxide 27 Anion Gap 8 BUN 4 L Creatinine 0.5 L Creat Clearance w eGFR > 60 POC Glucometer 153 Random Glucose 66 L Hemoglobin A1c % 6.0 Calcium 8.0 L Magnesium 1.4 L Total Bilirubin 1.0 Direct Bilirubin 0.8 H AST 39 H ALT 13 Alkaline Phosphatase 178 H Total Protein 7.8 Albumin 2.0 L Tumor Marker AFP Peritoneal WBC Peritoneal RBC Periton Neutrophils Peritoneal Other Cells Hep C Ab Diagnostic 05/24/18 05/24/18 08:35 08:40 WBC 7.6 RBC 3.27 L Hgb 10.3 L Hct 32.2 L MCV 98.7 H MCH 31.7 MCHC 32.1 RDW 18.6 H Plt Count 205 MPV 7.8 Absolute Neuts (auto) 3.1 Neutrophils % 40.8 L Lymphocytes % 43.6 H Monocytes % 13.0 H Eosinophils % 1.7 Basophils % 0.9 Nucleated RBC % 0 Sodium Potassium Chloride Carbon Dioxide Anion Gap BUN Creatinine Creat Clearance w eGFR POC Glucometer Random Glucose Hemoglobin A1c % Calcium Magnesium Cancelled Total Bilirubin Direct Bilirubin AST ALT Alkaline Phosphatase Total Protein Albumin Tumor Marker AFP Peritoneal WBC Peritoneal RBC Periton Neutrophils Peritoneal Other Cells Hep C Ab Diagnostic Active Medications Generic Name Dose Route Start Last Admin Trade Name Freq PRN Reason Stop Dose Admin Acetaminophen 650 mg 05/21/18 14:15 05/24/18 02:03 Tylenol - PO 05/24/18 14:14 650 mg Q4H PRN Administration PAIN SCALE 6-10 Amoxicillin/Clavulanate Potassium 1 tab 05/22/18 17:30 05/24/18 08:57 Augmentin - 875mg Tablet PO 1 tab BID@0800,1730 TARAN Administration Chlordiazepoxide HCl 25 mg 05/23/18 17:00 05/24/18 05:01 Librium - PO 05/24/18 11:01 25 mg [id number] TARAN Administration Chlordiazepoxide HCl 15 mg 05/24/18 17:00 Librium - PO 05/25/18 11:01 [id number] TARAN Chlordiazepoxide HCl 25 mg 05/22/18 15:50 Librium - PO 05/25/18 15:49 Q4H PRN WITHDRAWAL(CONT SUBST) Chlordiazepoxide HCl 10 mg 05/25/18 17:00 Librium - PO 05/26/18 11:01 [id number] TARAN Insulin Aspart 1 vial 05/21/18 22:00 05/24/18 06:22 Novolog Vial Sliding Scale - SQ 2 units ACHS TARAN Administration Protocol Magnesium Oxide 400 mg 05/23/18 22:00 05/24/18 09:50 Mag-Ox - PO 400 mg BID TARAN Administration Magnesium Sulfate 4 gm 05/24/18 10:27 Magnesium Sulfate IVPB 05/24/18 10:28 ONCE ONE Oxycodone HCl 5 mg 05/22/18 15:49 05/24/18 02:16 Roxicodone - PO 5 mg Q6H PRN Administration PAIN SCALE 6-10 Pantoprazole Sodium 40 mg 05/22/18 10:00 05/24/18 09:50 Protonix - PO 40 mg DAILY TARAN Administration Phytonadione 5 mg 05/22/18 10:00 05/24/18 09:50 Mephyton - PO 05/25/18 09:59 5 mg DAILY TARAN Administration Spironolactone 25 mg 05/21/18 22:00 05/24/18 09:51 Aldactone - PO 25 mg BID TARAN Administration Thiamine HCl 100 mg 05/22/18 10:00 05/24/18 09:50 Vitamin B1 - PO 100 mg DAILY TARAN Administration MRCP read and reviewed -cirrhosis with ascites in the setting of a perfusion defect 7mm in the right hepatic lobe that is a perfusion defect vs. early HCC vs. nodule. CBD 1cm but no choledocho. Strictures v. occult neoplasm. Recommended correlating all findings with AFP and potential ERCP. ASSESSMENT/PLAN: 1) Cirrhosis with Ascites with hypodense nodules -MRCP results reviewed above; consistent with concern for neoplastic disease. Now with potential strictures vs. occult neoplasm and the 7mm finding in the R- hepatic lobe -Followup with GI recs; awaiting full results from paracentesis study. Concern for neoplastic disease -Correlating findings with AFP (pending); radiology mentioned perhaps obtaining ERCP? Discuss with GI. -Doing well post paracentesis; ID following and they may continue or DC SBP px. RBC 562, WBC 616 -CMP in AM; followup hepatitis labs, etc. 2) Hyperammonemia -No asterixis; if becomes encephalopathic start lactulose 3) Stated WD -Would be out of the window for DTs -Consider stopping librium taper tomorrow 4) R/O SBP -Per ID; appreciate specialist input Full Code No medication changes today Awaiting further input from consulting services (ID, GI) Visit type - Emergency Visit Emergency Visit: No - New Patient This patient is new to me today: Yes Date on this admission: 05/24/18 - Critical Care Critical Care patient: No
[2018-05-24 11:48] LABS: PREALBUMIN 3.2 mg/dl (20-40)
--- NOTE | 2018-05-24 12:34 | PN ---
Progress Note, Physician - Current Medication List Current Medications: Active Medications Acetaminophen (Tylenol -) 650 mg PO Q4H PRN PRN Reason: PAIN SCALE 6-10 Stop: 05/24/18 14:14 Last Admin: 05/24/18 02:03 Dose: 650 mg Amoxicillin/Clavulanate Potassium (Augmentin - 875mg Tablet) 1 tab PO BID@0800, 1730 [facility] Last Admin: 05/24/18 08:57 Dose: 1 tab Chlordiazepoxide HCl (Librium -) 15 mg PO [id number] [facility] Stop: 05/25/18 11:01 Chlordiazepoxide HCl (Librium -) 25 mg PO Q4H PRN PRN Reason: WITHDRAWAL(CONT SUBST) Stop: 05/25/18 15:49 Chlordiazepoxide HCl (Librium -) 10 mg PO [id number] [facility] Stop: 05/26/18 11:01 Insulin Aspart (Novolog Vial Sliding Scale -) 1 vial SQ [facility]; Protocol Last Admin: 05/24/18 11:53 Dose: 4 units Magnesium Oxide (Mag-Ox -) 400 mg PO BID [facility] Last Admin: 05/24/18 09:50 Dose: 400 mg Oxycodone HCl (Roxicodone -) 5 mg PO Q6H PRN PRN Reason: PAIN SCALE 6-10 Last Admin: 05/24/18 02:16 Dose: 5 mg Pantoprazole Sodium (Protonix -) 40 mg PO DAILY [facility] Last Admin: 05/24/18 09:50 Dose: 40 mg Phytonadione (Mephyton -) 5 mg PO DAILY [facility] Stop: 05/25/18 09:59 Last Admin: 05/24/18 09:50 Dose: 5 mg Spironolactone (Aldactone -) 25 mg PO BID [facility] Last Admin: 05/24/18 09:51 Dose: 25 mg Thiamine HCl (Vitamin B1 -) 100 mg PO DAILY [facility] Last Admin: 05/24/18 09:50 Dose: 100 mg - Objective Vital Signs: Vital Signs Temperature 97.9 F 05/24/18 09:57 Pulse Rate 100 H 05/24/18 09:57 Respiratory Rate 19 05/24/18 09:57 Blood Pressure 109/78 05/24/18 09:57 O2 Sat by Pulse Oximetry (%) 97 05/23/18 21:00 Labs: CBC, BMP 05/24/18 08:35 05/24/18 08:35 INR, PTT INR 1.56 (0.83-1.09) H 05/23/18 07:15
--- NOTE | 2018-05-24 15:25 | PN ---
GI Progress Note Subjective: No acute events Had paracentesis performed: ?? 99% synovial lining cells noted Multiple pain complaints MRI failed to reveal multiple liver lesions but did show a 7mm arterially enhancing lesion in the dome of the liver with quick washout. CBD also dilated to 1cm with abrupt cut off at the level of the ampulla - Objective Vital Signs: Vital Signs Temperature 98.2 F 05/24/18 14:57 Pulse Rate 62 05/24/18 14:57 Respiratory Rate 19 05/24/18 14:57 Blood Pressure 113/79 05/24/18 14:57 O2 Sat by Pulse Oximetry (%) 97 05/24/18 09:00 Constitutional: Calm Eyes: No: Sclera Icterus Cardiovascular: Yes: Regular Rate and Rhythm Respiratory: Yes: CTA Bilaterally Gastrointestinal Inspection: Yes: Distention ...Auscultate: Yes: Normoactive Bowel Sounds ...Palpate: No: Hepatomegaly, Splenomegaly, Tenderness ...Percussion: No: Tympanitic Edema: No (No LE edema) Neurological: Yes: Alert Labs: CBC, BMP 05/24/18 08:35 05/24/18 08:35 INR, PTT INR 1.56 (0.83-1.09) H 05/23/18 07:15 Laboratory Tests 05/22/18 06:00 Tumor Marker AFP 3.5 Hepatitis A Ab Total Pending Hep Bs Antigen Pending Hep Bs Antibody Pending Hep B Core Total Ab Pending Hep C Ab Diagnostic Pending Hepatic Panel Total Bilirubin 1.0 mg/dL (0.2-1) 05/24/18 08:35 Direct Bilirubin 0.8 mg/dL (0.0-0.2) H 05/24/18 08:35 AST 39 U/L (15-37) H 05/24/18 08:35 ALT 13 U/L (13-61) 05/24/18 08:35 Alkaline Phosphatase 178 U/L (45-117) H 05/24/18 08:35 Albumin 2.0 g/dl (3.4-5.0) L 05/24/18 08:35 Problem List - Problems (1) Ascitic fluid Assessment/Plan: I was unclear regarding the finding of 99% synovial lining cells. I asked the hematology director of global marketing to reevaluate. She stated that if she makes changes it will be left in [facility] [place]. If still unclear then a pathologist will need to review Continue diuresis Code(s): R18.8 - OTHER ASCITES (2) Abnormal MRI, liver Assessment/Plan: Area in dome of liver that will need follow-up. Best served being plugged into a liver center such as [facility] when acute issues are resolved Cut off of the distal CBD noted on MRI. Discussed with Dr. Donahue, biliary endoscopist. Stated that he would review to give opinion re: ERCP. Code(s): R93.2 - ABNORMAL FINDINGS ON DX IMAGING OF LIVER AND BILIARY TRACT
[2018-05-24 15:28] LABS: PERITONEAL FLUID LYMPHOCYTE 66 %; PERITONEAL FLUID MACROPHAGE 33 %; PERITONEAL FLUID MESOTHELIAL 1 %
[2018-05-24] MEDS: chlordiazePOXIDE 5 MG CAPSULE PO SCH ×2 (17:22→23:04)
[2018-05-25] MEDS: chlordiazePOXIDE 5 MG CAPSULE PO SCH ×2 (04:48→10:21)
[2018-05-25] MEDS: oxyCODONE HCL 5 MG TABLET PO PRN ×3 (06:03→22:56)
[2018-05-25] MEDS: INSULIN SLIDING SCALE (NOVOLOG) 1 VIAL SQ SCH ×4 (06:03→22:56)
[2018-05-25 07:25] LABS: HEMATOCRIT 28.6 % (32.4-45.2); HEMOGLOBIN 9.4 GM/dL (10.7-15.3); MCHC 32.7 g/dl (32.0-36.0); MEAN CELL VOLUME 97.7 fl (80-96); PLATELET COUNT 205 K/MM3 (134-434); RBC 2.92 M/mm3 (3.60-5.2); RDW 18.2 % (11.6-15.6); WHITE BLOOD COUNT 6.6 K/mm3 (4.0-10.0)
[2018-05-25 07:49] LABS: ALBUMIN 1.9 g/dl (3.4-5.0); ALK PHOS 149 U/L (45-117); ANION GAP 7 MMOL/L (8-16); BLOOD UREA NITROGEN 4 mg/dL (7-18); CALCIUM 8.1 mg/dL (8.5-10.1); CHLORIDE 104 mmol/L (98-107); CO2 25 mmol/L (21-32); CREATININE 0.5 mg/dL (0.55-1.3); GLUCOSE,RANDOM 120 mg/dL (74-106); SGOT/AST 33 U/L (15-37); SGPT/ALT 11 U/L (13-61); SODIUM 137 mmol/L (136-145); TOT PROT 7.1 g/dl (6.4-8.2)
[2018-05-25] MEDS: AMOX TR/POT CLAV 875MG/125MG TABLETS (FP) PO SCH ×2 (08:28→16:56)
[2018-05-25 08:53] LABS: TOTAL PROTEIN,PERITONEAL FLUID 3 gm/dL
[2018-05-25] MEDS ORDERED: PT OWN MED DRAWER 7, Y5N ONE (10:17)
[2018-05-25] MEDS: THIAMINE HCL 100 MG TABLET (FP) PO SCH (10:21)
[2018-05-25] MEDS: SPIRONOLACTONE 25 MG TABLET (FP) PO SCH ×2 (10:21→22:55)
[2018-05-25] MEDS: PANTOPRAZOLE 40 MG TABLET (FP) PO SCH (10:21)
[2018-05-25] MEDS: MAGNESIUM OXIDE 400 MG TABLET (FP) PO SCH ×2 (10:21→22:56)
[2018-05-25] MEDS ORDERED: INSULIN (NOVOLOG) ASPART 100 UNITS/ML 10ML VIAL ONE (11:33)
--- NOTE | 2018-05-25 12:20 | PN ---
Progress Note, Physician History of Present Illness: patient had a bout of vomiting - Current Medication List Current Medications: Active Medications Amoxicillin/Clavulanate Potassium (Augmentin - 875mg Tablet) 1 tab PO BID@0800, 1730 [facility] Last Admin: 05/25/18 08:28 Dose: 1 tab Chlordiazepoxide HCl (Librium -) 25 mg PO Q4H PRN PRN Reason: WITHDRAWAL(CONT SUBST) Stop: 05/25/18 15:49 Chlordiazepoxide HCl (Librium -) 10 mg PO [id number] [facility] Stop: 05/26/18 11:01 Insulin Aspart (Novolog Vial Sliding Scale -) 1 vial SQ ACHS [facility]; Protocol Last Admin: 05/25/18 11:49 Dose: 2 units Magnesium Oxide (Mag-Ox -) 400 mg PO BID [facility] Last Admin: 05/25/18 10:21 Dose: 400 mg Oxycodone HCl (Roxicodone -) 5 mg PO Q6H PRN PRN Reason: PAIN SCALE 6-10 Last Admin: 05/25/18 06:03 Dose: 5 mg Pantoprazole Sodium (Protonix -) 40 mg PO DAILY [facility] Last Admin: 05/25/18 10:21 Dose: 40 mg Spironolactone (Aldactone -) 25 mg PO BID [facility] Last Admin: 05/25/18 10:21 Dose: 25 mg Thiamine HCl (Vitamin B1 -) 100 mg PO DAILY [facility] Last Admin: 05/25/18 10:21 Dose: 100 mg - Objective Vital Signs: Vital Signs Temperature 98.4 F 05/25/18 10:20 Pulse Rate 99 H 05/25/18 10:20 Respiratory Rate 19 05/25/18 10:20 Blood Pressure 116/73 05/25/18 10:20 O2 Sat by Pulse Oximetry (%) 97 05/25/18 09:00 Labs: CBC, BMP 05/25/18 06:25 05/25/18 06:25 INR, PTT INR 1.56 (0.83-1.09) H 05/23/18 07:15
[2018-05-25] MEDS ORDERED: PROCHLORPERAZINE INJECTION 10 MG/2 ML VIAL IVPB ONE (12:35)
--- NOTE | 2018-05-25 14:52 | PN ---
Physical Exam: SUBJECTIVE: Patient seen and examined. Patient reports she feels better since her paracentesis but she still has a persistent soreness across the middle of her abdomen. She says her PRN oxycodone 5 mg bring the pain down to about 4/10. She can only manage to eat small quantities without stomach pain. She had one episode of 200 ml emesis in the afternoon. She denies tremors diaphoresis, anxiety/agitation, audio/visual hallucinations. She is optimistic about staying sober and continuing rehab for alcoholism. OBJECTIVE: Vital Signs Period Temp Pulse Resp BP Sys/Pulliam Pulse Ox Last 24 Hr 97.9 F-98.9 F 62-99 18-20 103-116/69-79 97-97 GENERAL: The patient is awake, alert, and fully oriented, in no acute distress. HEAD: Normal with no signs of trauma. EYES: PERRL, extraocular movements intact, sclera anicteric, conjunctiva clear. No ptosis. ENT: Ears normal, nares patent, oropharynx clear without exudates, moist mucous membranes. NECK: Trachea midline, full range of motion, supple. LUNGS: Breath sounds equal, clear to auscultation bilaterally, no wheezes, no crackles, no accessory muscle use. HEART: Regular rate and rhythm, S1, S2 without murmur, rub or gallop. ABDOMEN: Soft, diffusely pedigree tracer, distended, +fluid wave, normoactive bowel sounds rebound, no hepatosplenomegaly, no masses. EXTREMITIES: 2+ pulses, warm, well-perfused, no edema. NEUROLOGICAL: No facial droop, tongue midline, normal speech, gait not observed. PSYCH: Normal mood, normal affect. SKIN: Warm, dry, normal turgor, no rashes or lesions noted Laboratory Results - last 24 hr 05/22/18 05/23/18 05/24/18 06:00 11:20 17:25 WBC RBC Hgb Hct MCV MCH MCHC RDW Plt Count MPV Sodium Potassium Chloride Carbon Dioxide Anion Gap BUN Creatinine Creat Clearance w eGFR POC Glucometer 170 Random Glucose Calcium Total Bilirubin AST ALT Alkaline Phosphatase Total Protein Albumin Periton Neutrophils Periton Lymphocytes 66 Periton Mesothelial 1 Periton Macrophages 33 Peritoneal Other Cells Elevator Troubleshooter Peritoneal Tot Protein 3 Peritoneal Albumin 1 Peritoneal LDH 87 Peritoneal Glucose 163 Peritoneal Amylase 18 JUANITO Screen Positive H JUANITO Homogeneous Pattern 1:80 JUANITO Nucleolar Pattern TNP JUANITO Spindle [place] Pattern TNP JUANITO Midbody Pattern TNP JUANITO Centriole Pattern TNP JUANITO Nuclear Dot Pattern TNP JUANITO PCNA Pattern TNP JUANITO Nuclear Membr Pat TNP JUANITO Speckled Pattern TNP JUANITO Centromere Pattern TNP 05/24/18 05/25/18 05/25/18 21:16 06:02 06:25 WBC 6.6 RBC 2.92 L Hgb 9.4 L Hct 28.6 L MCV 97.7 H MCH 32.0 MCHC 32.7 RDW 18.2 H Plt Count 205 MPV 8.0 Sodium Potassium Chloride Carbon Dioxide Anion Gap BUN Creatinine Creat Clearance w eGFR POC Glucometer 134 131 Random Glucose Calcium Total Bilirubin AST ALT Alkaline Phosphatase Total Protein Albumin Periton Neutrophils Periton Lymphocytes Periton Mesothelial Periton Macrophages Peritoneal Other Cells Peritoneal Tot Protein Peritoneal Albumin Peritoneal LDH Peritoneal Glucose Peritoneal Amylase JUANITO Screen JUANITO Homogeneous Pattern JUANITO Nucleolar Pattern JUANITO Spindle [place] Pattern JUANITO Midbody Pattern JUANITO Centriole Pattern JUANITO Nuclear Dot Pattern JUANITO PCNA Pattern JUANITO Nuclear Membr Pat JUANITO Speckled Pattern JUANITO Centromere Pattern 05/25/18 05/25/18 06:25 11:46 WBC RBC Hgb Hct MCV MCH MCHC RDW Plt Count MPV Sodium 137 Potassium 4.0 Chloride 104 Carbon Dioxide 25 Anion Gap 7 L BUN 4 L Creatinine 0.5 L Creat Clearance w eGFR > 60 POC Glucometer 181 Random Glucose 120 H Calcium 8.1 L Total Bilirubin 1.0 AST 33 ALT 11 L Alkaline Phosphatase 149 H Total Protein 7.1 Albumin 1.9 L Periton Neutrophils Periton Lymphocytes Periton Mesothelial Periton Macrophages Peritoneal Other Cells Peritoneal Tot Protein Peritoneal Albumin Peritoneal LDH Peritoneal Glucose Peritoneal Amylase JUANITO Screen JUANITO Homogeneous Pattern JUANITO Nucleolar Pattern JUANITO Spindle [place] Pattern JUANITO Midbody Pattern JUANITO Centriole Pattern JUANITO Nuclear Dot Pattern JUANITO PCNA Pattern JUANITO Nuclear Membr Pat JUANITO Speckled Pattern JUANITO Centromere Pattern Active Medications Generic Name Dose Route Start Last Admin Trade Name Freq PRN Reason Stop Dose Admin Amoxicillin/Clavulanate Potassium 1 tab 05/22/18 17:30 05/25/18 08:28 Augmentin - 875mg Tablet PO 1 tab BID@0800,1730 TARAN Administration Chlordiazepoxide HCl 25 mg 05/22/18 15:50 Librium - PO 05/25/18 15:49 Q4H PRN WITHDRAWAL(CONT SUBST) Chlordiazepoxide HCl 10 mg 05/25/18 17:00 Librium - PO 05/26/18 11:01 [id number] TARAN Insulin Aspart 1 vial 11/03/18 22:00 05/25/18 11:49 Novolog Vial Sliding Scale - SQ 2 units ACHS TARAN Administration Protocol Magnesium Oxide 400 mg 05/23/18 22:00 05/25/18 10:21 Mag-Ox - PO 400 mg BID TARAN Administration Oxycodone HCl 5 mg 05/22/18 15:49 05/25/18 06:03 Roxicodone - PO 5 mg Q6H PRN Administration PAIN SCALE 6-10 Oxycodone HCl 5 mg 05/25/18 15:49 Roxicodone - PO Q6H PRN PAIN LEVEL 6-10 Pantoprazole Sodium 40 mg 05/22/18 10:00 05/25/18 10:21 Protonix - PO 40 mg DAILY TARAN Administration Spironolactone 25 mg 05/21/18 22:00 05/25/18 10:21 Aldactone - PO 25 mg BID TARAN Administration Thiamine HCl 100 mg 05/22/18 10:00 05/25/18 10:21 Vitamin B1 - PO 100 mg DAILY TARAN Administration ASSESSMENT/PLAN: Cirrhosis with Ascites with hypodense nodules -MRI -7mm arterially enhancing lesion in the dome of the liver with quick washout -CBD dilated to 1cm with abrupt cut off at the level of the ampulla -Paracentesis - 99% synovial lining cells noted -GI does not feel ERCP necessary as her liver chemistries do not reflect biliary obstruction. -recommends evaluation at liver center, where EUS can also be performed to further evaluate CBD. -Spironolactone 25 mg BID -Oxycodone 5 mg PRN for pain -Pantoprazole 40 mg qday -One episode of emesis today, compazine 10 gm IV given to good effect R/o spontaneous bacterial peritonitis -Followed by ID -Continue Augmentin 875 mg BID Hyperammonemia -No asterixis -If encephalopathic, start Lactulose Alcohol Detox -No s/s of withdrawal -Will d/c Librium taper -Thiamine 100 mg Diabetes -SS with novolog -Monitor blood glucose -Diabetic diet Supplement -Mag Ox 400 mg BID FEN -PO intake adequate -Electrolytes replete as indicated -Diabetic diet DVT Prophylaxis -Daily ambulation Dispo: pt currently requires further inpatient care. No medication changes today ; awaiting further input from consulting services ID, GI. FULL CODE Visit type - Emergency Visit Emergency Visit: No - New Patient This patient is new to me today: Yes Date on this admission: 05/25/18 - Critical Care Critical Care patient: No
--- NOTE | 2018-05-25 16:50 | PATH ---
Cytology Non-Gynecological Report Patient Name: JOHANNA BARRAGAN [facility]. Rec. #: [id number] /Age/Gender: 1975 (Age: 42) / F Account: [id number] Location: [address] [place] [address] Taken: 05/23/2018 Received: 05/23/2018 Reported: 05/25/2018 Physicians: Edgardo Leija F.N.P. Specimen(s) Received A: PERITONEAL FLUID RECEIVED IN 50% ALCOHOL B: PERITONEAL FLUID RECEIVED FRESH Clinical History Ascites Final Diagnosis A & B. ABDOMINAL FLUID, PARACENTESIS: SATISFACTORY FOR EVALUATION. NO MALIGNANT CELLS IDENTIFIED. MESOTHELIAL CELLS, RARE MACROPHAGES, AND LYMPHOCYTES PRESENT. Electronically Signed Tammie Griffin M.D. Gross Description A. Approximately 50 cc of yellow fluid received fixed in 50% alcohol. One cytofunnel prepared and Pap stained. One cellblock prepared. B. Approximately 2000 cc of yellow fluid received fresh. One cytofunnel prepared and Pap stained. One cellblock prepared.
[2018-05-25] MEDS ORDERED: chlordiazePOXIDE 5 MG CAPSULE PO SCH (17:00)
[2018-05-26] MEDS: oxyCODONE HCL 5 MG TABLET PO PRN ×3 (05:17→20:52)
[2018-05-26 06:07] LABS: HBSAG SCREEN Negative (Negative); HEP A AB, IGM Negative (Negative); HEP B CORE AB, TOT Negative (Negative)
[2018-05-26] MEDS: INSULIN SLIDING SCALE (NOVOLOG) 1 VIAL SQ SCH ×4 (06:20→22:45)
[2018-05-26 07:23] LABS: HEMATOCRIT 28.1 % (32.4-45.2); HEMOGLOBIN 9.2 GM/dL (10.7-15.3); MCHC 32.9 g/dl (32.0-36.0); MEAN PLT VOLUME 7.9 fl (7.5-11.1); PLATELET COUNT 205 K/MM3 (134-434); RBC 2.89 M/mm3 (3.60-5.2); RDW 17.9 % (11.6-15.6); WHITE BLOOD COUNT 7.8 K/mm3 (4.0-10.0)
[2018-05-26 08:04] LABS: ALBUMIN 1.8 g/dl (3.4-5.0); ALK PHOS 118 U/L (45-117); ANION GAP 8 MMOL/L (8-16); BILIRUBIN,TOTAL 0.9 mg/dL (0.2-1); BLOOD UREA NITROGEN 5 mg/dL (7-18); CALCIUM 8.1 mg/dL (8.5-10.1); CHLORIDE 104 mmol/L (98-107); CO2 25 mmol/L (21-32); CREATININE 0.5 mg/dL (0.55-1.3); GLUCOSE,RANDOM 105 mg/dL (74-106); POTASSIUM 4.4 mmol/L (3.5-5.1); SGOT/AST 34 U/L (15-37); SGPT/ALT 9 U/L (13-61); SODIUM 137 mmol/L (136-145); TOT PROT 7.1 g/dl (6.4-8.2)
[2018-05-26] MEDS: AMOX TR/POT CLAV 875MG/125MG TABLETS (FP) PO SCH (08:13)
[2018-05-26] MEDS: PANTOPRAZOLE 40 MG TABLET (FP) PO SCH (09:11)
[2018-05-26] MEDS: MAGNESIUM OXIDE 400 MG TABLET (FP) PO SCH ×2 (09:11→22:45)
[2018-05-26] MEDS: THIAMINE HCL 100 MG TABLET (FP) PO SCH (09:11)
[2018-05-26] MEDS: SPIRONOLACTONE 25 MG TABLET (FP) PO SCH (09:12)
[2018-05-26] MEDS ORDERED: DOCUSATE SODIUM 100 MG CAPSULE (FP) PO ONE (11:15)
[2018-05-26] MEDS: chlordiazePOXIDE 5 MG CAPSULE PO SCH ×3 (11:54→22:45)
[2018-05-26] MEDS: POLYETHYLENE GLYCOL 3350 119 GM BTL PO SCH (11:56)
[2018-05-26] MEDS ORDERED: chlordiazePOXIDE 5 MG CAPSULE PO ONE (12:05)
--- NOTE | 2018-05-26 13:28 | PN ---
Progress Note, Physician - Current Medication List Current Medications: Active Medications Chlordiazepoxide HCl (Librium -) 5 mg PO [id number] [facility] Stop: 05/27/18 05:01 Last Admin: 05/26/18 11:54 Dose: 5 mg Insulin Aspart (Novolog Vial Sliding Scale -) 1 vial SQ ACHS [facility]; Protocol Last Admin: 05/26/18 11:55 Dose: 2 units Magnesium Oxide (Mag-Ox -) 400 mg PO BID [facility] Last Admin: 05/26/18 09:11 Dose: 400 mg Oxycodone HCl (Roxicodone -) 5 mg PO Q6H PRN PRN Reason: PAIN LEVEL 4 - 6 Oxycodone HCl (Roxicodone -) 10 mg PO Q6H PRN PRN Reason: PAIN LEVEL 7 - 10 Pantoprazole Sodium (Protonix -) 40 mg PO DAILY [facility] Last Admin: 05/26/18 09:11 Dose: 40 mg Polyethylene Glycol (Miralax (For Daily Use) -) 17 gm PO DAILY [facility] Last Admin: 05/26/18 11:56 Dose: 17 gm Senna (Senna -) 1 tab PO [facility] Spironolactone (Aldactone -) 25 mg PO BID [facility] Last Admin: 05/26/18 09:12 Dose: 25 mg Thiamine HCl (Vitamin B1 -) 100 mg PO DAILY [facility] Last Admin: 05/26/18 09:11 Dose: 100 mg - Objective Vital Signs: Vital Signs Temperature 97.8 F 05/26/18 08:57 Pulse Rate 94 H 05/26/18 08:57 Respiratory Rate 22 H 05/26/18 08:57 Blood Pressure 110/76 05/26/18 08:57 O2 Sat by Pulse Oximetry (%) 98 05/25/18 21:00 Labs: CBC, BMP 05/26/18 06:25 05/26/18 06:25 INR, PTT INR 1.56 (0.83-1.09) H 05/23/18 07:15
--- NOTE | 2018-05-26 16:46 | PN ---
GI Progress Note Subjective: No acute events Abdominal distention worsening again - Objective Vital Signs: Vital Signs Temperature 97.8 F 05/26/18 15:11 Pulse Rate 98 H 05/26/18 15:11 Respiratory Rate 20 05/26/18 15:11 Blood Pressure 104/73 05/26/18 15:11 O2 Sat by Pulse Oximetry (%) 98 05/25/18 21:00 Constitutional: Calm Eyes: No: Sclera Icterus Cardiovascular: Yes: Regular Rate and Rhythm Respiratory: Yes: CTA Bilaterally Gastrointestinal Inspection: Yes: Distention ...Auscultate: Yes: Normoactive Bowel Sounds ...Palpate: Yes: Soft. No: Tenderness ...Percussion: No: Tympanitic Edema: No (No LE edema) Labs: CBC, BMP 05/26/18 06:25 05/26/18 06:25 INR, PTT INR 1.56 (0.83-1.09) H 05/23/18 07:15 SAAG from 05/23/18: 1.1 Laboratory Tests 05/22/18 05/23/18 06:00 11:20 Tumor Marker AFP Pending Peritoneal WBC 616 Peritoneal RBC 562 Periton Lymphocytes 66 Periton Mesothelial 1 Periton Macrophages 33 Peritoneal Tot Protein 3 Peritoneal Albumin 1 Peritoneal LDH 87 Peritoneal Glucose 163 Peritoneal Amylase 18 Problem List - Problems (1) Ascitic fluid Assessment/Plan: The calculated SAAG is 1.1 suggestive of portal hypertension. The total protein of 3 is a bit high, however. While this still will likely reflect portal hypertensive etiology of her ascites, I ordered echo to assess her cardiac function. Also: I increased aldactone to 100mg daily along with lasix 40mg daily. If worsening ascites persists, will need repeat paracentesis. Would give 8g of 25% albumin/ liter of ascites removed if more than 5 liters removed. Advised complete alcohol cessation Changed diet to diabetic / sodium controlled. should be maintained on 2g low sodium diet Needs hepatitis B vaccination as serology does not reflect immunity Explained need for outpatient follow-up to further evaluate lliver lesion noted opn recent MRI as well as abnormal appearing CBD Minimize opiate analgesia No need for PPI therapy Daily weights, strict I's and O's Code(s): R18.8 - OTHER ASCITES (2) Abnormal MRI, liver Code(s): R93.2 - ABNORMAL FINDINGS ON DX IMAGING OF LIVER AND BILIARY TRACT
[2018-05-26] MEDS ORDERED: chlordiazePOXIDE 5 MG CAPSULE PO SCH (17:00)
[2018-05-26] MEDS ORDERED: PT OWN MED DRAWER 7, Y5N ONE (17:36)
--- NOTE | 2018-05-26 18:46 | PN ---
Physical Exam: SUBJECTIVE: Patient seen and examined. Reports increased tremors and withdrawl symptoms. Still has a persistent soreness across the middle of her abdomen but no nausea vomiting today. She says PRN oxycodone 5 mg are not effective and she needs 10 mg. OBJECTIVE: Vital Signs Period Temp Pulse Resp BP Sys/Pulliam Pulse Ox Last 24 Hr 97.7 F-98.1 F 86-103 20-22 104-110/69-86 98 GENERAL: The patient is awake, alert, and fully oriented, in no acute distress. HEAD: Normal with no signs of trauma. EYES: PERRL, extraocular movements intact, sclera anicteric, conjunctiva clear. No ptosis. ENT: Ears normal, nares patent, oropharynx clear without exudates, moist mucous membranes. NECK: Trachea midline, full range of motion, supple. LUNGS: Breath sounds equal, clear to auscultation bilaterally, no wheezes, no crackles, no accessory muscle use. HEART: Regular rate and rhythm, S1, S2 without murmur, rub or gallop. ABDOMEN: Soft, diffusely multicultural internship, distended, +fluid wave, normoactive bowel sounds rebound, no hepatosplenomegaly, no masses. EXTREMITIES: 2+ pulses, warm, well-perfused, no edema. NEUROLOGICAL: + b/l hand tremors, no facial droop, tongue midline, normal speech , gait not observed. PSYCH: Normal mood, normal affect. SKIN: Warm, dry, normal turgor, no rashes or lesions noted Laboratory Results - last 24 hr 05/22/18 05/25/18 05/26/18 06:00 22:51 05:20 WBC RBC Hgb Hct MCV MCH MCHC RDW Plt Count MPV Sodium Potassium Chloride Carbon Dioxide Anion Gap BUN Creatinine Creat Clearance w eGFR POC Glucometer 94 107 Random Glucose Calcium Total Bilirubin AST ALT Alkaline Phosphatase Total Protein Albumin Smooth Musc &BLACKJACK DEALER Intrp 8 Hep A IgM Ab Confirm Negative Hepatitis A Ab Total Positive H Hep Bs Antigen Negative Hep Bs Antibody Non reactive Hep B Core Total Ab Negative 05/26/18 05/26/18 05/26/18 06:25 06:25 11:15 WBC 7.8 RBC 2.89 L Hgb 9.2 L Hct 28.1 L MCV 97.0 H MCH 32.0 MCHC 32.9 RDW 17.9 H Plt Count 205 MPV 7.9 Sodium 137 Potassium 4.4 Chloride 104 Carbon Dioxide 25 Anion Gap 8 BUN 5 L Creatinine 0.5 L Creat Clearance w eGFR > 60 POC Glucometer 152 Random Glucose 105 Calcium 8.1 L Total Bilirubin 0.9 AST 34 ALT 9 L Alkaline Phosphatase 118 H Total Protein 7.1 Albumin 1.8 L Smooth Musc &[employer]ER Intrp Hep A IgM Ab Confirm Hepatitis A Ab Total Hep Bs Antigen Hep Bs Antibody Hep B Core Total Ab 05/26/18 16:55 WBC RBC Hgb Hct MCV MCH MCHC RDW Plt Count MPV Sodium Potassium Chloride Carbon Dioxide Anion Gap BUN Creatinine Creat Clearance w eGFR POC Glucometer 135 Random Glucose Calcium Total Bilirubin AST ALT Alkaline Phosphatase Total Protein Albumin Smooth Musc &BLACKJACK DEALER Intrp Hep A IgM Ab Confirm Hepatitis A Ab Total Hep Bs Antigen Hep Bs Antibody Hep B Core Total Ab Active Medications Generic Name Dose Route Start Last Admin Trade Name Freq PRN Reason Stop Dose Admin Chlordiazepoxide HCl 5 mg 05/26/18 11:36 05/26/18 17:40 Librium - PO 05/27/18 05:01 5 mg [id number] TARAN Administration Furosemide 40 mg 05/27/18 10:00 Lasix - PO DAILY [facility] Insulin Aspart 1 vial 05/21/18 22:00 05/26/18 17:18 Novolog Vial Sliding Scale - SQ Not Given [facility] Protocol Magnesium Oxide 400 mg 05/23/18 22:00 05/26/18 09:11 Mag-Ox - PO 400 mg BID TARAN Administration Oxycodone HCl 5 mg 05/26/18 11:16 Roxicodone - PO Q6H PRN PAIN LEVEL 4 - 6 Oxycodone HCl 10 mg 05/26/18 11:17 05/26/18 14:37 Roxicodone - PO 10 mg Q6H PRN Administration PAIN LEVEL 7 - 10 Polyethylene Glycol 17 gm 05/26/18 11:15 05/26/18 11:56 Miralax (For Daily Use) - PO 17 gm DAILY TARAN Administration Senna 1 tab 05/26/18 22:00 Senna - PO HS TARAN Spironolactone 100 mg 05/27/18 10:00 Aldactone - PO DAILY TARAN Thiamine HCl 100 mg 05/22/18 10:00 05/26/18 09:11 Vitamin B1 - PO 100 mg DAILY TARAN Administration ASSESSMENT/PLAN: Cirrhosis with Ascites with hypodense nodules -MRI -7mm arterially enhancing lesion in the dome of the liver with quick washout -CBD dilated to 1cm with abrupt cut off at the level of the ampulla -Paracentesis - 99% synovial lining cells noted -Oxycodone 5 mg PRN for pain -Multiple episodes of emesis yesterday, resolved -Seen by GI Dr. Mccurdy today -SAAG is 1.1 suggestive of portal hypertension. -Total protein of 3 is a bit high, however. -Ordered echo f/o cardiac etiology -Increased Aldactone to 100mg daily -Start lasix 40mg daily -D/c Protonix -If ascites persists, will need repeat paracentesis. -Give 8g of 25% albumin/liter of ascites removed if more than 5 liters removed. -Diabetic/sodium controlled (should be maintained on 2g low sodium diet) -Needs hepatitis B vaccination as serology does not reflect immunity -OP follow-up to further evaluate liver lesion noted on MRI as well as EUS can also be performed to further evaluate CBD. -Daily weights, strict I's and O's R/o spontaneous bacterial peritonitis -Followed by ID -Completed course of Augmentin 875 mg BID Hyperammonemia -No asterixis -If encephalopathic, start Lactulose Alcohol Detox -Increased tremors and anxiety today -Re-start Librium 5 mg q6h -Thiamine 100 mg Diabetes -SS with novolog -Monitor blood glucose -Diabetic diet Supplement -Mag Ox 400 mg BID FEN -PO intake adequate -Electrolytes replete as indicated -Diabetic/Sodium controlled diet DVT Prophylaxis -Daily ambulation Dispo: pt currently requires further inpatient care. No medication changes today ; awaiting further input from consulting services ID, GI. FULL CODE Visit type - Emergency Visit Emergency Visit: No - New Patient This patient is new to me today: No - Critical Care Critical Care patient: No
[2018-05-26] MEDS: SENNOSIDES 8.6MG TABLET (FP) PO SCH (22:45)
[2018-05-27] MEDS: oxyCODONE HCL 5 MG TABLET PO PRN ×3 (04:32→21:01)
[2018-05-27] MEDS: chlordiazePOXIDE 5 MG CAPSULE PO SCH ×4 (06:34→23:04)
[2018-05-27] MEDS: INSULIN SLIDING SCALE (NOVOLOG) 1 VIAL SQ SCH ×4 (06:34→21:02)
[2018-05-27 08:02] LABS: ALBUMIN 1.9 g/dl (3.4-5.0); BILIRUBIN,DIRECT 0.6 mg/dL (0.0-0.2); BILIRUBIN,TOTAL 0.8 mg/dL (0.2-1); TOT PROT 7.3 g/dl (6.4-8.2)
[2018-05-27] MEDS: FUROSEMIDE 40 MG TABLET (FP) PO SCH (10:25)
[2018-05-27] MEDS: THIAMINE HCL 100 MG TABLET (FP) PO SCH (10:25)
[2018-05-27] MEDS: MAGNESIUM OXIDE 400 MG TABLET (FP) PO SCH ×2 (10:25→21:01)
[2018-05-27] MEDS: SPIRONOLACTONE 25 MG TABLET (FP) PO SCH (10:25)
[2018-05-27] MEDS: POLYETHYLENE GLYCOL 3350 119 GM BTL PO SCH (10:25)
--- NOTE | 2018-05-27 10:41 | PN ---
Progress Note, Physician History of Present Illness: abd distension pain uncomfortable - Current Medication List Current Medications: Active Medications Furosemide (Lasix -) 40 mg PO DAILY [facility] Last Admin: 05/27/18 10:25 Dose: 40 mg Insulin Aspart (Novolog Vial Sliding Scale -) 1 vial SQ ACHS [facility]; Protocol Last Admin: 05/27/18 06:34 Dose: Not Given Magnesium Oxide (Mag-Ox -) 400 mg PO BID [facility] Last Admin: 05/27/18 10:25 Dose: 400 mg Oxycodone HCl (Roxicodone -) 5 mg PO Q6H PRN PRN Reason: PAIN LEVEL 4 - 6 Oxycodone HCl (Roxicodone -) 10 mg PO Q6H PRN PRN Reason: PAIN LEVEL 7 - 10 Last Admin: 05/27/18 04:32 Dose: 10 mg Polyethylene Glycol (Miralax (For Daily Use) -) 17 gm PO DAILY [facility] Last Admin: 05/27/18 10:25 Dose: 17 gm Senna (Senna -) 1 tab PO HS [facility] Last Admin: 05/26/18 22:45 Dose: 1 tab Spironolactone (Aldactone -) 100 mg PO DAILY [facility] Last Admin: 05/27/18 10:25 Dose: 100 mg Thiamine HCl (Vitamin B1 -) 100 mg PO DAILY [facility] Last Admin: 05/27/18 10:25 Dose: 100 mg - Objective Vital Signs: Vital Signs Temperature 98.5 F 05/27/18 10:28 Pulse Rate 78 05/27/18 10:28 Respiratory Rate 20 05/27/18 10:28 Blood Pressure 113/71 05/27/18 10:28 O2 Sat by Pulse Oximetry (%) 98 05/26/18 21:00 Constitutional: Yes: Calm, Mild Distress Cardiovascular: Yes: Regular Rate and Rhythm Respiratory: Yes: Regular, CTA Bilaterally Gastrointestinal: Yes: Soft, Distention, Tenderness Musculoskeletal: Yes: WNL Extremities: Yes: WNL Neurological: Yes: Alert, Oriented Psychiatric: Yes: Alert, Oriented Labs: CBC, BMP 05/26/18 06:25 05/26/18 06:25 INR, PTT INR 1.56 (0.83-1.09) H 05/23/18 07:15 Assessment/Plan Abdominal pain ETOH abuse Diabetes Hep C Fatty liver Ascites Liver Cirrh Electroyte imbalance possible SBP Lactate elevated, hyponatremic, hypokalemic r/o malignancy plan stopped all abx monitor abd distension might need paracentesis again rest continue current mgmt
--- NOTE | 2018-05-27 13:11 | ECHO ---
Name: BARRAGAN, CRYSTAL Exam:Adult Echocardiogram Study Date: 05/27/2018 11:21 AM Age: 42 yrs Reason For Study: LV FN,ASCITES Height: 67 in Weight: 158 lb BSA: 1.8 m2 MMode/2D Measurements & Calculations IVSd: 0.77 cm Ao root diam: 2.9 cm LVIDd: 5.2 cm LA dimension: 2.9 cm LVIDs: 3.3 cm ACS: 1.9 cm LVPWd: 0.98 cm IVSs: 1.3 cm LVPWs: 1.1 cm EDV(Teich): 129.0 ml ESV(Teich): 44.0 ml Doppler Measurements & Calculations MV E max elan: 66.6 cm/sec AI P1/2t: 353.5 msec MV A max elan: 77.0 cm/sec MV E/A: 0.87 AI max elan: 348.0 cm/sec TR max elan: 195.9 cm/sec AI max P.5 mmHg TR max P.4 mmHg AI dec slope: 288.3 cm/sec2 Med Peak E' Elan: 6.8 cm/sec Med E/e': 9.8 Lat Peak E' Elan: 11.8 cm/sec Lat E/e': 5.6 Left Ventricle Left ventricular systolic function is normal. Ejection Fraction = 55-60%. Right Ventricle The right ventricle is normal in size and function. Atria Color doppler suggests left to right interatrial shunt. Color doppler suggests possible atrial septal defect. Mitral Valve The mitral valve is normal in structure and function. There is no mitral valve stenosis. There is mil d mitral regurgitation. Tricuspid Valve The tricuspid valve is normal in structure and function. There is mild tricuspid regurgitation. Aortic Valve The aortic valve opens well. No hemodynamically significant valvular aortic stenosis. Mild to moderat e aortic regurgitation. Pulmonic Valve The pulmonic valve is not well seen, but is grossly normal. There is no pulmonic valvular stenosis. T here is no pulmonic valvular regurgitation. Great Vessels The aortic root is normal size. Pericardium/Pleura There is no pericardial effusion. Interpretation Summary Left ventricular systolic function is normal. Ejection Fraction = 55-60%. The right ventricle is normal in size and function. Color doppler suggests left to right interatrial shunt. Color doppler suggests possible atrial septal defect. There is mild mitral regurgitation. There is mild tricuspid regurgitation. Mild to moderate aortic regurgitation. There is no pericardial effusion. MD Rodriguez *Tiffany 05/27/2018 01:10 PM
[2018-05-27] MEDS ORDERED: PT OWN MED DRAWER 7, Y5N ONE ×2 (15:40→15:58)
[2018-05-27] MEDS: HYDROCORTISONE 2.5% TOPICAL CREAM 30 GM TUBE TP SCH (15:48)
[2018-05-27] MEDS: SENNOSIDES 8.6MG TABLET (FP) PO SCH (21:01)
--- NOTE | 2018-05-27 21:16 | PN ---
Physical Exam: SUBJECTIVE: Patient seen and examined. Reports persistent tremors. Still has a persistent soreness across the middle of her abdomen but no nausea vomiting today. She feels her stomach is becoming more distending. She says PRN oxycodone 5 mg are not effective and she needs 10 mg. OBJECTIVE: Vital Signs Period Temp Pulse Resp BP Sys/Pulliam Pulse Ox Last 24 Hr 97.9 F-98.5 F 78-96 18-20 105-119/61-85 GENERAL: The patient is awake, alert, and fully oriented, in no acute distress. HEAD: Normal with no signs of trauma. EYES: PERRL, extraocular movements intact, sclera anicteric, conjunctiva clear. No ptosis. ENT: Ears normal, nares patent, oropharynx clear without exudates, moist mucous membranes. NECK: Trachea midline, full range of motion, supple. LUNGS: Breath sounds equal, clear to auscultation bilaterally, no wheezes, no crackles, no accessory muscle use. HEART: Regular rate and rhythm, S1, S2 without murmur, rub or gallop. 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 EXTREMITIES: 2+ pulses, warm, well-perfused, no edema. NEUROLOGICAL: + b/l hand tremors, no facial droop, tongue midline, normal speech , gait not observed. PSYCH: Normal mood, normal affect. SKIN: Warm, dry, normal turgor, no rashes or lesions noted Laboratory Results - last 24 hr 05/26/18 05/27/18 05/27/18 22:24 06:00 06:32 POC Glucometer 150 117 Total Bilirubin 0.8 Direct Bilirubin 0.6 H AST 29 ALT 10 L Alkaline Phosphatase 140 H Total Protein 7.3 Albumin 1.9 L 05/27/18 05/27/18 12:00 16:25 POC Glucometer 146 153 Total Bilirubin Direct Bilirubin AST ALT Alkaline Phosphatase Total Protein Albumin Active Medications Generic Name Dose Route Start Last Admin Trade Name Freq PRN Reason Stop Dose Admin Chlordiazepoxide HCl 5 mg 05/27/18 12:00 05/27/18 17:21 Librium - PO 5 mg [id number] TARAN Administration Furosemide 40 mg 05/27/18 10:00 05/27/18 10:25 Lasix - PO 40 mg DAILY [facility]AN Administration Hydrocortisone 1 applic 05/27/18 12:00 05/27/18 15:48 Anusol 2.5% Hc Cream - TP 1 applic DAILY [facility]ARAN Administration Insulin Aspart 1 vial 05/21/18 22:00 05/27/18 21:02 Novolog Vial Sliding Scale - SQ Not Given ACHS TARAN Protocol Magnesium Oxide 400 mg 05/23/18 22:00 05/27/18 21:01 Mag-Ox - PO 400 mg BID TARAN Administration Oxycodone HCl 5 mg 05/26/18 11:16 05/27/18 21:01 Roxicodone - PO 5 mg Q6H PRN Administration PAIN LEVEL 4 - 6 Polyethylene Glycol 17 gm 05/26/18 11:15 05/27/18 10:25 Miralax (For Daily Use) - PO 17 gm DAILY [facility]AN Administration Senna 1 tab 05/26/18 22:00 05/27/18 21:01 Senna - PO 1 tab HS TARAN Administration Spironolactone 100 mg 05/27/18 10:00 05/27/18 10:25 Aldactone - PO 100 mg DAILY [facility]ARAN Administration Thiamine HCl 100 mg 05/22/18 10:00 05/27/18 10:25 Vitamin B1 - PO 100 mg DAILY TARAN Administration ASSESSMENT/PLAN: Cirrhosis with Ascites with hypodense nodules -MRI -7mm arterially enhancing lesion in the dome of the liver with quick washout -CBD dilated to 1cm with abrupt cut off at the level of the ampulla -Paracentesis - 99% synovial lining cells noted -Oxycodone 5 mg PRN for pain -Seen by GI Dr. Mccurdy -SAAG is 1.1 suggestive of portal hypertension. -Total protein of 3 is a bit high, however. -Ordered echo f/o cardiac etiology -Increased Aldactone to 100mg daily -Start lasix 40mg daily -D/c Protonix -If ascites persists, will need repeat paracentesis. -Give 8g of 25% albumin/liter of ascites removed if more than 5 liters removed. -Diabetic/sodium controlled (should be maintained on 2g low sodium diet) -Needs hepatitis B vaccination as serology does not reflect immunity -OP follow-up to further evaluate liver lesion noted on MRI as well as EUS can also be performed to further evaluate CBD. -Daily weights, strict I's and O's R/o spontaneous bacterial peritonitis -Followed by ID -Completed course of Augmentin 875 mg BID Hyperammonemia -No asterixis -If encephalopathic, start Lactulose Alcohol Detox -Continue Librium 5 mg q6h -Monitor CIWA and taper down -Thiamine 100 mg Diabetes -SS with novolog -Monitor blood glucose -Diabetic diet Hemorrhoids -Anusol topical Supplement -Mag Ox 400 mg BID FEN -PO intake adequate -Electrolytes replete as indicated -Diabetic/Sodium controlled diet DVT Prophylaxis -Daily ambulation Dispo: pt currently requires further inpatient care. No medication changes today ; awaiting further input from consulting services ID, GI. FULL CODE Visit type - Emergency Visit Emergency Visit: No - New Patient This patient is new to me today: No - Critical Care Critical Care patient: No
[2018-05-28] MEDS: oxyCODONE HCL 5 MG TABLET PO PRN ×3 (03:20→17:37)
[2018-05-28] MEDS: chlordiazePOXIDE 5 MG CAPSULE PO SCH ×3 (06:29→18:48)
[2018-05-28] MEDS: INSULIN SLIDING SCALE (NOVOLOG) 1 VIAL SQ SCH ×4 (06:29→22:08)
[2018-05-28] MEDS ORDERED: PT OWN MED DRAWER 7, Y5N ONE (09:45)
[2018-05-28] MEDS: THIAMINE HCL 100 MG TABLET (FP) PO SCH (09:53)
[2018-05-28] MEDS: SPIRONOLACTONE 25 MG TABLET (FP) PO SCH (09:53)
[2018-05-28] MEDS: FUROSEMIDE 40 MG TABLET (FP) PO SCH (09:53)
[2018-05-28] MEDS: MAGNESIUM OXIDE 400 MG TABLET (FP) PO SCH ×2 (09:53→22:08)
[2018-05-28] MEDS: HYDROCORTISONE 2.5% TOPICAL CREAM 30 GM TUBE TP SCH (09:54)
[2018-05-28] MEDS: POLYETHYLENE GLYCOL 3350 119 GM BTL PO SCH (09:55)
--- NOTE | 2018-05-28 13:45 | PN ---
GI Progress Note Subjective: Complains of tinging of feet bilaterally No abdominal pain currently Weight 160 lbs today: 161 lbs yesterday - Objective Vital Signs: Vital Signs Temperature 98 F 05/28/18 09:59 Pulse Rate 75 05/28/18 09:59 Respiratory Rate 20 05/28/18 09:59 Blood Pressure 106/75 05/28/18 09:59 O2 Sat by Pulse Oximetry (%) 98 05/28/18 09:00 Constitutional: Calm Eyes: No: Sclera Icterus Cardiovascular: Yes: Regular Rate and Rhythm Respiratory: Yes: CTA Bilaterally Gastrointestinal Inspection: Yes: Distention, Scars (dressing in RLQ at site of previous paracentesis) ...Auscultate: Yes: Normoactive Bowel Sounds ...Palpate: Yes: Soft. No: Tenderness Edema: No (No LE edema) Neurological: Yes: Alert, Oriented Labs: CBC, BMP 05/26/18 06:25 05/26/18 06:25 INR, PTT INR 1.56 (0.83-1.09) H 05/23/18 07:15 Ascites: Fluid cytology: negative for malignant cells Microbiology 05/23/18 11:20 Abdomen Gram Stain - Neg 05/23/18 11:20 Abdomen Anaerobic Culture - Final NO GROWTH OF AEROBIC ORGANISMS AFTER 48 HOURS INCUBATION NO ANAEROBES WERE ISOLATED 05/27/18: Echo: Normal EF, normal LV/RV function and size, Left to right shunt with ? ASD, mild mitral,tricuspid regurg, mild-mod aortic regurg. Problem List - Problems (1) Ascitic fluid Assessment/Plan: Suspect secondary to portal hypertension as sequwela of alcoholic cirrhosis. echo does not suggest a cardiac etiology however consider cardiology consult to give opinion re: ASD. Continue diuresis. will likely need repeat paracentesis wednesday. Would supplement with 6-8g of 25% albumin per liter of ascites removed if more than 5 liters removed after paracentesis. Daily weights / I's and O's: decrease in 1 pound from yesterday. Continue diuresis. Monitor electrolytes given escalated dose of diuretics. Ordered CBC/ hepatic panel, bmp, magnesium, phosphorous stat for today. Advised Cassia Milton's nurse of complaint of foot parasthesias as this will need further evaluation. She in turn spoke to the covering nurse practitioner. Minimize opiate analgesia Code(s): R18.8 - OTHER ASCITES (2) Abnormal MRI, liver Code(s): R93.2 - ABNORMAL FINDINGS ON DX IMAGING OF LIVER AND BILIARY TRACT
[2018-05-28 14:20] LABS: BASO % 1.3 % (0-2.0); EOS % 1.7 % (0-4.5); HEMATOCRIT 30.1 % (32.4-45.2); HEMOGLOBIN 10.1 GM/dL (10.7-15.3); LYMPH % 40.3 % (8-40); MCH 32.5 pg (25.7-33.7); MCHC 33.7 g/dl (32.0-36.0); MEAN CELL VOLUME 96.7 fl (80-96); MEAN PLT VOLUME 7.5 fl (7.5-11.1); MONO % 10.8 % (3.8-10.2); NEUT % 45.9 % (42.8-82.8); PLATELET COUNT 231 K/MM3 (134-434); RBC 3.11 M/mm3 (3.60-5.2); RDW 17.5 % (11.6-15.6)
[2018-05-28 14:55] LABS: ALK PHOS 165 U/L (45-117); ANION GAP 6 MMOL/L (8-16); BILIRUBIN,DIRECT 0.6 mg/dL (0.0-0.2); BILIRUBIN,TOTAL 0.7 mg/dL (0.2-1); BLOOD UREA NITROGEN 9 mg/dL (7-18); CALCIUM 8.3 mg/dL (8.5-10.1); CHLORIDE 104 mmol/L (98-107); CO2 26 mmol/L (21-32); CREATININE 0.6 mg/dL (0.55-1.3); GLUCOSE,RANDOM 103 mg/dL (74-106); MAGNESIUM 1.5 mg/dL (1.8-2.4); PHOSPHOROUS 4.7 mg/dL (2.5-4.9); POTASSIUM 4.6 mmol/L (3.5-5.1); SGOT/AST 32 U/L (15-37); SGPT/ALT 11 U/L (13-61); SODIUM 137 mmol/L (136-145); TOT PROT 7.6 g/dl (6.4-8.2)
--- NOTE | 2018-05-28 15:20 | PN ---
Progress Note, Physician History of Present Illness: stable abd distension abd pain - Current Medication List Current Medications: Active Medications Chlordiazepoxide HCl (Librium -) 5 mg PO Q8H [facility] Last Admin: 05/28/18 11:46 Dose: 5 mg Furosemide (Lasix -) 40 mg PO DAILY [facility] Last Admin: 05/28/18 09:53 Dose: 40 mg Hydrocortisone (Anusol 2.5% Hc Cream -) 1 applic TP DAILY [facility] Last Admin: 05/28/18 09:54 Dose: 1 applic Insulin Aspart (Novolog Vial Sliding Scale -) 1 vial SQ ACHS [facility]; Protocol Last Admin: 05/28/18 11:57 Dose: 2 units Magnesium Oxide (Mag-Ox -) 400 mg PO BID [facility] Last Admin: 05/28/18 09:53 Dose: 400 mg Oxycodone HCl (Roxicodone -) 5 mg PO Q6H PRN PRN Reason: PAIN LEVEL 4 - 6 Last Admin: 05/28/18 09:53 Dose: 5 mg Polyethylene Glycol (Miralax (For Daily Use) -) 17 gm PO DAILY [facility] Last Admin: 05/28/18 09:55 Dose: 17 gm Senna (Senna -) 1 tab PO HS [facility] Last Admin: 05/27/18 21:01 Dose: 1 tab Spironolactone (Aldactone -) 100 mg PO DAILY [facility] Last Admin: 05/28/18 09:53 Dose: 100 mg Thiamine HCl (Vitamin B1 -) 100 mg PO DAILY [facility] Last Admin: 05/28/18 09:53 Dose: 100 mg - Objective Vital Signs: Vital Signs Temperature 97.2 F L 05/28/18 14:01 Pulse Rate 93 H 05/28/18 14:01 Respiratory Rate 22 H 05/28/18 14:01 Blood Pressure 110/71 05/28/18 14:01 O2 Sat by Pulse Oximetry (%) 98 05/28/18 09:00 Constitutional: Yes: No Distress, Calm Cardiovascular: Yes: Regular Rate and Rhythm Respiratory: Yes: Regular, CTA Bilaterally Gastrointestinal: Yes: Normal Bowel Sounds, Ascites, Distention Musculoskeletal: Yes: WNL Extremities: Yes: WNL Neurological: Yes: Alert, Oriented Psychiatric: Yes: Alert, Oriented Labs: CBC, BMP 05/28/18 14:13 05/28/18 14:13 INR, PTT INR 1.56 (0.83-1.09) H 05/23/18 07:15 Assessment/Plan Abdominal pain ETOH abuse Diabetes Hep C Fatty liver Ascites Liver Cirrh Electroyte imbalance possible SBP Lactate elevated, hyponatremic, hypokalemic r/o malignancy plan will need paracentesis continue current mgmt rest as per the team
[2018-05-28] MEDS ORDERED: MAGNESIUM SULF 50% (8.12 MEQ/2 ML-1 GM VIAL) IVPB ONE (16:30)
--- NOTE | 2018-05-28 16:33 | PN ---
Physical Exam: SUBJECTIVE: Patient seen and examined. Still with abdominal pain and distension. She says PRN oxycodone 5 mg are not effective and she needs 10 mg. Seen by GI and ID today. OBJECTIVE: Vital Signs Period Temp Pulse Resp BP Sys/Pulliam Pulse Ox Last 24 Hr 97.2 F-98.3 F 75-105 18-22 99-110/64-75 98-98 GENERAL: The patient is awake, alert, and fully oriented, in no acute distress. HEAD: Normal with no signs of trauma. EYES: PERRL, extraocular movements intact, sclera anicteric, conjunctiva clear. No ptosis. ENT: Ears normal, nares patent, oropharynx clear without exudates, moist mucous membranes. NECK: Trachea midline, full range of motion, supple. LUNGS: Breath sounds equal, clear to auscultation bilaterally, no wheezes, no crackles, no accessory muscle use. HEART: Regular rate and rhythm, S1, S2 without murmur, rub or gallop. 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 EXTREMITIES: 2+ pulses, warm, well-perfused, no edema. NEUROLOGICAL: + b/l hand tremors, no facial droop, tongue midline, normal speech , gait not observed. PSYCH: Normal mood, normal affect. SKIN: Warm, dry, normal turgor, no rashes or lesions noted Laboratory Results - last 24 hr 05/27/18 05/27/18 05/28/18 16:25 20:58 06:28 WBC RBC Hgb Hct MCV MCH MCHC RDW Plt Count MPV Absolute Neuts (auto) Neutrophils % Lymphocytes % Monocytes % Eosinophils % Basophils % Nucleated RBC % Sodium Potassium Chloride Carbon Dioxide Anion Gap BUN Creatinine Creat Clearance w eGFR POC Glucometer 153 138 125 Random Glucose Calcium Phosphorus Magnesium Total Bilirubin Direct Bilirubin AST ALT Alkaline Phosphatase Total Protein Albumin 05/28/18 05/28/18 05/28/18 11:48 14:13 14:13 WBC 8.0 RBC 3.11 L Hgb 10.1 L Hct 30.1 L MCV 96.7 H MCH 32.5 MCHC 33.7 RDW 17.5 H Plt Count 231 MPV 7.5 Absolute Neuts (auto) 3.7 Neutrophils % 45.9 Lymphocytes % 40.3 H Monocytes % 10.8 H Eosinophils % 1.7 Basophils % 1.3 Nucleated RBC % 0 Sodium 137 Potassium 4.6 Chloride 104 Carbon Dioxide 26 Anion Gap 6 L BUN 9 Creatinine 0.6 Creat Clearance w eGFR > 60 POC Glucometer 159 Random Glucose 103 Calcium 8.3 L Phosphorus 4.7 Magnesium 1.5 L Total Bilirubin 0.7 Direct Bilirubin 0.6 H AST 32 ALT 11 L Alkaline Phosphatase 165 H Total Protein 7.6 Albumin 2.0 L Active Medications Generic Name Dose Route Start Last Admin Trade Name Freq PRN Reason Stop Dose Admin Chlordiazepoxide HCl 5 mg 05/28/18 11:00 05/28/18 11:46 Librium - PO 5 mg Q8H [facility]ARAN Administration Furosemide 40 mg 05/27/18 10:00 05/28/18 09:53 Lasix - PO 40 mg DAILY [facility]AN Administration Hydrocortisone 1 applic 05/27/18 12:00 05/28/18 09:54 Anusol 2.5% Hc Cream - TP 1 applic DAILY [facility]AN Administration Insulin Aspart 1 vial 05/21/18 22:00 05/28/18 11:57 Novolog Vial Sliding Scale - SQ 2 units ACHS TARAN Administration Protocol Magnesium Oxide 400 mg 05/23/18 22:00 05/28/18 09:53 Mag-Ox - PO 400 mg BID [facility]ARAN Administration Oxycodone HCl 5 mg 05/26/18 11:16 05/28/18 09:53 Roxicodone - PO 5 mg Q6H PRN Administration PAIN LEVEL 4 - 6 Polyethylene Glycol 17 gm 05/26/18 11:15 05/28/18 09:55 Miralax (For Daily Use) - PO 17 gm DAILY [facility] Administration Senna 1 tab 05/26/18 22:00 05/27/18 21:01 Senna - PO 1 tab HS [facility] Administration Spironolactone 100 mg 05/27/18 10:00 05/28/18 09:53 Aldactone - PO 100 mg DAILY [facility] Administration Thiamine HCl 100 mg 05/22/18 10:00 05/28/18 09:53 Vitamin B1 - PO 100 mg DAILY [facility] Administration MRI -7mm arterially enhancing lesion in the dome of the liver with quick washout -CBD dilated to 1cm with abrupt cut off at the level of the ampulla Echo 05/27/18 EF 55-60% Mild MR Mild TR Mild AR ASSESSMENT/PLAN: Cirrhosis with Ascites with hypodense nodules -Paracentesis - 99% synovial lining cells noted -Seen by GI Dr. Mccurdy -SAAG is 1.1 suggestive of portal hypertension secondary to alcoholic cirrhosis -Total protein of 3 is a bit high, however. Recommending 2nd paracentesis -Ordered for Wednesday -Give 8g of 25% albumin/liter of ascites removed if more than 5 liters removed. -Diabetic/sodium controlled (should be maintained on 2g low sodium diet) -Needs hepatitis B vaccination as serology does not reflect immunity -Aldactone to 100mg daily -Lasix 40mg daily -Daily weights, strict I's and O's -Oxycodone 5 mg PRN for pain -Will taper down Hypomagnesima -1.5 today -2 mg IV given, recheck tomorrow -Continue Mag Ox 400 mg BID R/o spontaneous bacterial peritonitis -Followed by ID -Completed course of Augmentin 875 mg BID Hyperammonemia -No asterixis -If encephalopathic, start Lactulose Alcohol Detox -Continue Librium 5 mg q6h -Monitor CIWA and taper down -Thiamine 100 mg Diabetes -SS with novolog -Monitor blood glucose -Diabetic diet Hemorrhoids -Anusol topical FEN -PO intake adequate -Electrolytes replete as indicated -Diabetic/Sodium controlled diet DVT Prophylaxis -Daily ambulation Dispo: pt currently requires further inpatient care. No medication changes today ; awaiting further input from consulting services ID, GI. FULL CODE Visit type - Emergency Visit Emergency Visit: No - New Patient This patient is new to me today: No - Critical Care Critical Care patient: No
[2018-05-28] MEDS: SENNOSIDES 8.6MG TABLET (FP) PO SCH (22:08)
[2018-05-29] MEDS: oxyCODONE HCL 5 MG TABLET PO PRN ×4 (00:36→21:21)
[2018-05-29] MEDS: chlordiazePOXIDE 5 MG CAPSULE PO SCH ×3 (02:28→21:20)
[2018-05-29] MEDS ORDERED: PT OWN MED DRAWER 7, Y5N ONE ×3 (05:10→11:48)
[2018-05-29] MEDS: INSULIN SLIDING SCALE (NOVOLOG) 1 VIAL SQ SCH ×4 (06:44→21:21)
[2018-05-29 07:46] LABS: HEMATOCRIT 32.6 % (32.4-45.2); HEMOGLOBIN 10.8 GM/dL (10.7-15.3); MCH 32.2 pg (25.7-33.7); MCHC 33.2 g/dl (32.0-36.0); MEAN CELL VOLUME 97.1 fl (80-96); MEAN PLT VOLUME 7.7 fl (7.5-11.1); PLATELET COUNT 240 K/MM3 (134-434); RBC 3.36 M/mm3 (3.60-5.2); RDW 17.5 % (11.6-15.6); WHITE BLOOD COUNT 7.7 K/mm3 (4.0-10.0)
[2018-05-29 08:26] LABS: ANION GAP 6 MMOL/L (8-16); BLOOD UREA NITROGEN 8 mg/dL (7-18); CALCIUM 8.4 mg/dL (8.5-10.1); CHLORIDE 103 mmol/L (98-107); CO2 27 mmol/L (21-32); CREATININE 0.6 mg/dL (0.55-1.3); GLUCOSE,RANDOM 117 mg/dL (74-106); MAGNESIUM 1.9 mg/dL (1.8-2.4); POTASSIUM 4.4 mmol/L (3.5-5.1); SODIUM 136 mmol/L (136-145)
[2018-05-29] MEDS: THIAMINE HCL 100 MG TABLET (FP) PO SCH (09:19)
[2018-05-29] MEDS: SPIRONOLACTONE 25 MG TABLET (FP) PO SCH (09:19)
[2018-05-29] MEDS: FUROSEMIDE 40 MG TABLET (FP) PO SCH (09:19)
[2018-05-29] MEDS: MAGNESIUM OXIDE 400 MG TABLET (FP) PO SCH ×2 (09:19→21:20)
[2018-05-29] MEDS: POLYETHYLENE GLYCOL 3350 119 GM BTL PO SCH (09:19)
--- NOTE | 2018-05-29 10:16 | PN ---
GI Progress Note Subjective: Found laying comfortably Had oxycodone dose escalated States abdominal pain improved States still with tingling sensation in ankles and legs Weight 155 lbs. today - Objective Vital Signs: Vital Signs Temperature 98.9 F 05/29/18 09:54 Pulse Rate 90 05/29/18 09:54 Respiratory Rate 18 05/29/18 09:54 Blood Pressure 106/77 05/29/18 09:54 O2 Sat by Pulse Oximetry (%) 100 05/28/18 21:00 Constitutional: Calm Eyes: No: Sclera Icterus Cardiovascular: Yes: Tachycardia Respiratory: Yes: CTA Bilaterally Gastrointestinal Inspection: Yes: Distention ...Auscultate: Yes: Normoactive Bowel Sounds ...Palpate: Yes: Soft. No: Tenderness ...Percussion: No: Tympanitic Edema: No (No LE edema) Labs: CBC, BMP 05/29/18 06:55 05/29/18 06:55 INR, PTT INR 1.56 (0.83-1.09) H 05/23/18 07:15 Problem List - Problems (1) Ascitic fluid Assessment/Plan: No criteria for SBP on tap: ANC 6.5% and culture negative however was on Abx prior to tap? ID following paracentesis for tomorrow: send cell count Evaluation of LE paresthesias per PMD Code(s): R18.8 - OTHER ASCITES (2) Abnormal MRI, liver Assessment/Plan: Outpatient follow-up will be needed Q 6 month hepatic US to screen for HCC Code(s): R93.2 - ABNORMAL FINDINGS ON DX IMAGING OF LIVER AND BILIARY TRACT
[2018-05-29] MEDS: HYDROCORTISONE 2.5% TOPICAL CREAM 30 GM TUBE TP SCH (11:48)
--- NOTE | 2018-05-29 16:55 | PN ---
Physical Exam: SUBJECTIVE: Patient seen and examined. Still with abdominal pain and distension. She says PRN oxycodone 5 mg are not effective and she needs 10 mg. Seen by GI today, plan for paracentesis tomorrow. OBJECTIVE: Vital Signs Period Temp Pulse Resp BP Sys/Pulliam Pulse Ox Last 24 Hr 97.1 F-98.9 F 90-107 18-20 106-137/49-85 100-100 GENERAL: The patient is awake, alert, and fully oriented, in no acute distress. HEAD: Normal with no signs of trauma. EYES: PERRL, extraocular movements intact, sclera anicteric, conjunctiva clear. No ptosis. ENT: Ears normal, nares patent, oropharynx clear without exudates, moist mucous membranes. NECK: Trachea midline, full range of motion, supple. LUNGS: Breath sounds equal, clear to auscultation bilaterally, no wheezes, no crackles, no accessory muscle use. HEART: Regular rate and rhythm, S1, S2 without murmur, rub or gallop. 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 EXTREMITIES: 2+ pulses, warm, well-perfused, no edema. NEUROLOGICAL: hand termors resolved, no facial droop, tongue midline, normal speech, gait not observed. PSYCH: Normal mood, normal affect. SKIN: Warm, dry, normal turgor, no rashes or lesions noted Laboratory Results - last 24 hr 05/28/18 05/28/18 05/29/18 17:39 21:24 05:54 WBC RBC Hgb Hct MCV MCH MCHC RDW Plt Count MPV Sodium Potassium Chloride Carbon Dioxide Anion Gap BUN Creatinine Creat Clearance w eGFR POC Glucometer 124 153 117 Random Glucose Calcium Magnesium 05/29/18 05/29/18 05/29/18 06:55 06:55 11:06 WBC 7.7 RBC 3.36 L Hgb 10.8 Hct 32.6 MCV 97.1 H MCH 32.2 MCHC 33.2 RDW 17.5 H Plt Count 240 MPV 7.7 Sodium 136 Potassium 4.4 Chloride 103 Carbon Dioxide 27 Anion Gap 6 L BUN 8 Creatinine 0.6 Creat Clearance w eGFR > 60 POC Glucometer 170 Random Glucose 117 H Calcium 8.4 L Magnesium 1.9 Active Medications Generic Name Dose Route Start Last Admin Trade Name Freq PRN Reason Stop Dose Admin Chlordiazepoxide HCl 5 mg 05/29/18 22:00 Librium - PO BID [facility] Furosemide 40 mg 05/27/18 10:00 05/29/18 09:19 Lasix - PO 40 mg DAILY [facility] Administration Hydrocortisone 1 applic 05/27/18 12:00 05/29/18 11:48 Anusol 2.5% Hc Cream - TP 1 applic DAILY [facility] Administration Insulin Aspart 1 vial 05/21/18 22:00 05/29/18 11:46 Novolog Vial Sliding Scale - SQ 2 units ACHS [facility]ARAN Administration Protocol Magnesium Oxide 400 mg 05/23/18 22:00 05/29/18 09:19 Mag-Ox - PO 400 mg BID [facility] Administration Oxycodone HCl 5 mg 05/26/18 11:16 05/29/18 06:57 Roxicodone - PO 5 mg Q6H PRN Administration PAIN LEVEL 4 - 6 Oxycodone HCl 10 mg 05/29/18 11:22 05/29/18 14:54 Roxicodone - PO 10 mg Q6H PRN Administration PAIN LEVEL 7 - 10 Polyethylene Glycol 17 gm 05/26/18 11:15 05/29/18 09:19 Miralax (For Daily Use) - PO 17 gm DAILY [facility] Administration Senna 1 tab 05/26/18 22:00 05/28/18 22:08 Senna - PO 1 tab HS [facility] Administration Spironolactone 100 mg 05/27/18 10:00 05/29/18 09:19 Aldactone - PO 100 mg DAILY [facility] Administration Thiamine HCl 100 mg 05/22/18 10:00 05/29/18 09:19 Vitamin B1 - PO 100 mg DAILY [facility] Administration ASSESSMENT/PLAN: Cirrhosis with Ascites with hypodense nodules -Paracentesis - 99% synovial lining cells noted -Seen by GI Dr. Mccurdy -RODNEYG is 1.1 suggestive of portal hypertension secondary to alcoholic cirrhosis -Total protein of 3 is a bit high, however. Recommending 2nd paracentesis -Ordered for Wednesday -Cell count ordered -Give 8g of 25% albumin/liter of ascites removed if more than 5 liters removed. -Diabetic/sodium controlled (should be maintained on 2g low sodium diet) -Needs hepatitis B vaccination as serology does not reflect immunity -Aldactone to 100mg daily -Lasix 40mg daily -Daily weights, strict I's and O's -Oxycodone 5 mg PRN for pain -new order for oxycodone 10 mg q6 PRN until paracentesis planned for tomorrow, then will d/c Hypomagnesima -Improved, 1.5 -> 1.9 today -Continue Mag Ox 400 mg BID R/o spontaneous bacterial peritonitis -Followed by ID -Completed course of Augmentin 875 mg BID Hyperammonemia -No asterixis -If encephalopathic, start Lactulose Alcohol Detox -Tapering down: now Librium 5 mg BID -Monitor CIWA and taper down -Thiamine 100 mg Diabetes -SS with novolog -Monitor blood glucose -Diabetic diet Hemorrhoids -Anusol topical FEN -PO intake adequate -Electrolytes replete as indicated -Diabetic/Sodium controlled diet DVT Prophylaxis -Daily ambulation Dispo: pt currently requires further inpatient care. No medication changes today ; awaiting further input from consulting services ID, GI. FULL CODE Visit type - Emergency Visit Emergency Visit: No - New Patient This patient is new to me today: No - Critical Care Critical Care patient: No
--- NOTE | 2018-05-29 16:58 | PN ---
Progress Note, Physician History of Present Illness: stable no new issues - Current Medication List Current Medications: Active Medications Chlordiazepoxide HCl (Librium -) 5 mg PO BID [facility] Furosemide (Lasix -) 40 mg PO DAILY [facility] Last Admin: 05/29/18 09:19 Dose: 40 mg Hydrocortisone (Anusol 2.5% Hc Cream -) 1 applic TP DAILY [facility] Last Admin: 05/29/18 11:48 Dose: 1 applic Insulin Aspart (Novolog Vial Sliding Scale -) 1 vial SQ ACHS [facility]; Protocol Last Admin: 05/29/18 16:54 Dose: 2 units Magnesium Oxide (Mag-Ox -) 400 mg PO BID [facility] Last Admin: 05/29/18 09:19 Dose: 400 mg Oxycodone HCl (Roxicodone -) 5 mg PO Q6H PRN PRN Reason: PAIN LEVEL 4 - 6 Last Admin: 05/29/18 06:57 Dose: 5 mg Oxycodone HCl (Roxicodone -) 10 mg PO Q6H PRN PRN Reason: PAIN LEVEL 7 - 10 Last Admin: 05/29/18 14:54 Dose: 10 mg Polyethylene Glycol (Miralax (For Daily Use) -) 17 gm PO DAILY [facility] Last Admin: 05/29/18 09:19 Dose: 17 gm Senna (Senna -) 1 tab PO HS [facility] Last Admin: 05/28/18 22:08 Dose: 1 tab Spironolactone (Aldactone -) 100 mg PO DAILY [facility] Last Admin: 05/29/18 09:19 Dose: 100 mg Thiamine HCl (Vitamin B1 -) 100 mg PO DAILY [facility] Last Admin: 05/29/18 09:19 Dose: 100 mg - Objective Vital Signs: Vital Signs Temperature 97.1 F L 05/29/18 14:24 Pulse Rate 93 H 05/29/18 14:24 Respiratory Rate 20 05/29/18 14:24 Blood Pressure 115/80 05/29/18 14:24 O2 Sat by Pulse Oximetry (%) 100 05/29/18 09:00 Constitutional: Yes: No Distress, Calm Cardiovascular: Yes: Regular Rate and Rhythm Respiratory: Yes: Regular, CTA Bilaterally Gastrointestinal: Yes: Normal Bowel Sounds, Soft, Ascites Musculoskeletal: Yes: WNL Extremities: Yes: WNL Neurological: Yes: Alert, Oriented Psychiatric: Yes: Alert, Oriented Labs: CBC, BMP 05/29/18 06:55 05/29/18 06:55 INR, PTT INR 1.56 (0.83-1.09) H 05/23/18 07:15 Assessment/Plan Abdominal pain ETOH abuse Diabetes Hep C Fatty liver Ascites Liver Cirrh Electroyte imbalance possible SBP Lactate elevated, hyponatremic, hypokalemic r/o malignancy plan will need paracentesis continue current mgmt rest as per the team await for final mgmt
[2018-05-29] MEDS: SENNOSIDES 8.6MG TABLET (FP) PO SCH (21:21)
[2018-05-30] MEDS: oxyCODONE HCL 5 MG TABLET PO PRN ×3 (03:49→20:03)
[2018-05-30] MEDS: INSULIN SLIDING SCALE (NOVOLOG) 1 VIAL SQ SCH ×4 (06:30→22:04)
[2018-05-30 07:24] LABS: ANION GAP 6 MMOL/L (8-16); BLOOD UREA NITROGEN 8 mg/dL (7-18); CALCIUM 8.3 mg/dL (8.5-10.1); CHLORIDE 102 mmol/L (98-107); CO2 27 mmol/L (21-32); CREATININE 0.5 mg/dL (0.55-1.3); GLUCOSE,RANDOM 109 mg/dL (74-106); POTASSIUM 4.4 mmol/L (3.5-5.1); SODIUM 136 mmol/L (136-145)
[2018-05-30 08:54] LABS: HEMATOCRIT 30.1 % (32.4-45.2); HEMOGLOBIN 10.4 GM/dL (10.7-15.3); MCHC 34.4 g/dl (32.0-36.0); MEAN PLT VOLUME 8.4 fl (7.5-11.1); PLATELET COUNT 222 K/MM3 (134-434); RBC 3.14 M/mm3 (3.60-5.2); RDW 17.6 % (11.6-15.6); WHITE BLOOD COUNT 9.1 K/mm3 (4.0-10.0)
[2018-05-30] MEDS: FUROSEMIDE 40 MG TABLET (FP) PO SCH (10:11)
[2018-05-30] MEDS: chlordiazePOXIDE 5 MG CAPSULE PO SCH ×2 (10:11→21:57)
[2018-05-30] MEDS: MAGNESIUM OXIDE 400 MG TABLET (FP) PO SCH ×2 (10:11→21:57)
[2018-05-30] MEDS: THIAMINE HCL 100 MG TABLET (FP) PO SCH (10:11)
[2018-05-30] MEDS: SPIRONOLACTONE 25 MG TABLET (FP) PO SCH (10:12)
[2018-05-30] MEDS: POLYETHYLENE GLYCOL 3350 119 GM BTL PO SCH (11:27)
[2018-05-30] MEDS: HYDROCORTISONE 2.5% TOPICAL CREAM 30 GM TUBE TP SCH (11:28)
[2018-05-30 14:44] VITALS: BMI 24.0
--- NOTE | 2018-05-30 15:19 | PN ---
Progress Note, Physician History of Present Illness: stable had paracentesis done - Current Medication List Current Medications: Active Medications Chlordiazepoxide HCl (Librium -) 5 mg PO BID [facility] Last Admin: 05/30/18 10:11 Dose: 5 mg Furosemide (Lasix -) 40 mg PO DAILY [facility] Last Admin: 05/30/18 10:11 Dose: 40 mg Hydrocortisone (Anusol 2.5% Hc Cream -) 1 applic TP DAILY [facility] Last Admin: 05/30/18 11:28 Dose: 1 applic Insulin Aspart (Novolog Vial Sliding Scale -) 1 vial SQ ACHS [facility]; Protocol Last Admin: 05/30/18 11:41 Dose: 2 units Magnesium Oxide (Mag-Ox -) 400 mg PO BID [facility] Last Admin: 05/30/18 10:11 Dose: 400 mg Oxycodone HCl (Roxicodone -) 5 mg PO Q6H PRN PRN Reason: PAIN LEVEL 4 - 6 Last Admin: 05/29/18 06:57 Dose: 5 mg Polyethylene Glycol (Miralax (For Daily Use) -) 17 gm PO DAILY [facility] Last Admin: 05/30/18 11:27 Dose: 17 gm Senna (Senna -) 1 tab PO HS [facility] Last Admin: 05/29/18 21:21 Dose: 1 tab Spironolactone (Aldactone -) 100 mg PO DAILY [facility] Last Admin: 05/30/18 10:12 Dose: 100 mg Thiamine HCl (Vitamin B1 -) 100 mg PO DAILY [facility] Last Admin: 05/30/18 10:11 Dose: 100 mg - Objective Vital Signs: Vital Signs Temperature 98.4 F 05/30/18 10:00 Pulse Rate 90 05/30/18 10:00 Respiratory Rate 18 05/30/18 10:00 Blood Pressure 111/80 05/30/18 10:00 O2 Sat by Pulse Oximetry (%) 100 05/30/18 09:00 Constitutional: Yes: No Distress, Calm Cardiovascular: Yes: Regular Rate and Rhythm Respiratory: Yes: Regular, CTA Bilaterally Gastrointestinal: Yes: Soft, Ascites, Distention Musculoskeletal: Yes: WNL Extremities: Yes: WNL Neurological: Yes: Alert, Oriented Psychiatric: Yes: Alert, Oriented Labs: CBC, BMP 05/30/18 06:30 05/30/18 06:30 INR, PTT INR 1.56 (0.83-1.09) H 05/23/18 07:15 Assessment/Plan Abdominal pain ETOH abuse Diabetes Hep C Fatty liver Ascites Liver Cirrh Electroyte imbalance possible SBP Lactate elevated, hyponatremic, hypokalemic r/o malignancy plan continue current mgmt rest as per the team patient still feels bloated monitor abd
[2018-05-30 16:56] LABS: PERITONEAL RBC 351 /mm3
[2018-05-30] MEDS ORDERED: INSULIN (NOVOLOG) ASPART 100 UNITS/ML 10ML VIAL ONE (17:25)
--- NOTE | 2018-05-30 17:26 | PN ---
Physical Exam: SUBJECTIVE: Patient seen and examined. Paracentesis today, Still with abdominal pain and distension. She says PRN oxycodone 5 mg are not effective and she needs 10 mg. Seen by GI today, plan for paracentesis tomorrow. OBJECTIVE: Vital Signs Period Temp Pulse Resp BP Sys/Pulliam Pulse Ox Last 24 Hr 98.2 F-98.6 F 78-117 18-20 109-117/67-83 100-100 GENERAL: The patient is awake, alert, and fully oriented, in no acute distress. HEAD: Normal with no signs of trauma. EYES: PERRL, extraocular movements intact, sclera anicteric, conjunctiva clear. No ptosis. ENT: Ears normal, nares patent, oropharynx clear without exudates, moist mucous membranes. NECK: Trachea midline, full range of motion, supple. LUNGS: Breath sounds equal, clear to auscultation bilaterally, no wheezes, no crackles, no accessory muscle use. HEART: Regular rate and rhythm, S1, S2 without murmur, rub or gallop. 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 EXTREMITIES: 2+ pulses, warm, well-perfused, no edema. NEUROLOGICAL: hand termors resolved, no facial droop, tongue midline, normal speech, gait not observed. PSYCH: Normal mood, normal affect. SKIN: Warm, dry, normal turgor, no rashes or lesions noted Laboratory Results - last 24 hr 05/29/18 05/30/18 05/30/18 21:01 05:48 06:30 WBC 9.1 RBC 3.14 L Hgb 10.4 L Hct 30.1 L MCV 96.0 MCH 33.0 MCHC 34.4 RDW 17.6 H Plt Count 222 MPV 8.4 Sodium Potassium Chloride Carbon Dioxide Anion Gap BUN Creatinine Creat Clearance w eGFR POC Glucometer 129 104 Random Glucose Calcium Peritoneal WBC Peritoneal RBC 05/30/18 05/30/18 05/30/18 06:30 11:37 13:30 WBC RBC Hgb Hct MCV MCH MCHC RDW Plt Count MPV Sodium 136 Potassium 4.4 Chloride 102 Carbon Dioxide 27 Anion Gap 6 L BUN 8 Creatinine 0.5 L Creat Clearance w eGFR > 60 POC Glucometer 169 Random Glucose 109 H Calcium 8.3 L Peritoneal WBC 547 Peritoneal RBC 351 05/30/18 16:49 WBC RBC Hgb Hct MCV MCH MCHC RDW Plt Count MPV Sodium Potassium Chloride Carbon Dioxide Anion Gap BUN Creatinine Creat Clearance w eGFR POC Glucometer 160 Random Glucose Calcium Peritoneal WBC Peritoneal RBC Active Medications Generic Name Dose Route Start Last Admin Trade Name Freq PRN Reason Stop Dose Admin Chlordiazepoxide HCl 5 mg 05/29/18 22:00 05/30/18 10:11 Librium - PO 5 mg BID [facility] Administration Furosemide 40 mg 05/27/18 10:00 05/30/18 10:11 Lasix - PO 40 mg DAILY [facility] Administration Hydrocortisone 1 applic 05/27/18 12:00 05/30/18 11:28 Anusol 2.5% Hc Cream - TP 1 applic DAILY [facility] Administration Insulin Aspart 1 vial 05/21/18 22:00 05/30/18 17:15 Novolog Vial Sliding Scale - SQ 2 units ACHS [facility] Administration Protocol Magnesium Oxide 400 mg 05/23/18 22:00 05/30/18 10:11 Mag-Ox - PO 400 mg BID [facility] Administration Oxycodone HCl 5 mg 05/26/18 11:16 05/29/18 06:57 Roxicodone - PO 5 mg Q6H PRN Administration PAIN LEVEL 4 - 6 Polyethylene Glycol 17 gm 05/26/18 11:15 05/30/18 11:27 Miralax (For Daily Use) - PO 17 gm DAILY [facility] Administration Senna 1 tab 05/26/18 22:00 05/29/18 21:21 Senna - PO 1 tab HS [facility] Administration Spironolactone 100 mg 05/27/18 10:00 05/30/18 10:12 Aldactone - PO 100 mg DAILY [facility] Administration Thiamine HCl 100 mg 05/22/18 10:00 05/30/18 10:11 Vitamin B1 - PO 100 mg DAILY [facility] Administration ASSESSMENT/PLAN: Cirrhosis with Ascites with hypodense nodules -Paracentesis 05/23/18 - 99% synovial lining cells noted -Second paracentesis today, report pending -Seen by GI Dr. Kaz SORIANO is 1.1 suggestive of portal hypertension secondary to alcoholic cirrhosis -Total protein of 3 is a bit high, however. Recommending 2nd paracentesis -Ordered for Wednesday -Cell count ordered -Give 8g of 25% albumin/liter of ascites removed if more than 5 liters removed. -Diabetic/sodium controlled (should be maintained on 2g low sodium diet) -Needs hepatitis B vaccination as serology does not reflect immunity -Aldactone to 100mg daily -Lasix 40mg daily -Daily weights, strict I's and O's -Oxycodone 5 mg PRN for pain Hypomagnesima -Improved, 1.5 -> 1.9 -Continue Mag Ox 400 mg BID -Monitor levels R/o spontaneous bacterial peritonitis -Followed by ID -Completed course of Augmentin 875 mg BID Hyperammonemia -No asterixis -If encephalopathic, start Lactulose Alcohol Detox -Tapering down: now Librium 5 mg BID -Monitor CIWA and taper down -Thiamine 100 mg Diabetes -SS with novolog -Monitor blood glucose -Diabetic diet Hemorrhoids -Anusol topical FEN -PO intake adequate -Electrolytes replete as indicated -Diabetic/Sodium controlled diet DVT Prophylaxis -Daily ambulation Dispo: pt currently requires further inpatient care. No medication changes today ; awaiting further input from consulting services ID, GI. FULL CODE Visit type - Emergency Visit Emergency Visit: No - New Patient This patient is new to me today: No - Critical Care Critical Care patient: No
[2018-05-30 18:30] LABS: PERITONEAL FLUID LYMPHOCYTE 70 %; PERITONEAL FLUID MACROPHAGE 15 %; PERITONEAL FLUID MONOCYTE 12 %; PERITONEAL FLUID NEUTROPHIL 3 %
[2018-05-30] MEDS: SENNOSIDES 8.6MG TABLET (FP) PO SCH (21:57)
[2018-05-31] MEDS: INSULIN SLIDING SCALE (NOVOLOG) 1 VIAL SQ SCH ×4 (06:15→22:31)
[2018-05-31 07:35] LABS: HEMATOCRIT 29.4 % (32.4-45.2); HEMOGLOBIN 9.7 GM/dL (10.7-15.3); MCH 31.8 pg (25.7-33.7); MCHC 32.9 g/dl (32.0-36.0); MEAN CELL VOLUME 96.6 fl (80-96); PLATELET COUNT 203 K/MM3 (134-434); RBC 3.05 M/mm3 (3.60-5.2); RDW 17.2 % (11.6-15.6); WHITE BLOOD COUNT 9.7 K/mm3 (4.0-10.0)
[2018-05-31 07:52] LABS: ANION GAP 7 MMOL/L (8-16); BLOOD UREA NITROGEN 7 mg/dL (7-18); CALCIUM 8.1 mg/dL (8.5-10.1); CHLORIDE 103 mmol/L (98-107); CO2 25 mmol/L (21-32); CREATININE 0.5 mg/dL (0.55-1.3); GLUCOSE,RANDOM 114 mg/dL (74-106); MAGNESIUM 1.5 mg/dL (1.8-2.4); POTASSIUM 4.3 mmol/L (3.5-5.1); SODIUM 136 mmol/L (136-145)
[2018-05-31] MEDS: oxyCODONE HCL 5 MG TABLET PO PRN ×3 (09:07→21:41)
[2018-05-31] MEDS: chlordiazePOXIDE 5 MG CAPSULE PO SCH (09:08)
[2018-05-31] MEDS: MAGNESIUM OXIDE 400 MG TABLET (FP) PO SCH ×2 (09:08→22:00)
[2018-05-31] MEDS: THIAMINE HCL 100 MG TABLET (FP) PO SCH (09:08)
[2018-05-31] MEDS: FUROSEMIDE 40 MG TABLET (FP) PO SCH (09:08)
[2018-05-31] MEDS: SPIRONOLACTONE 25 MG TABLET (FP) PO SCH (09:09)
[2018-05-31] MEDS: HYDROCORTISONE 2.5% TOPICAL CREAM 30 GM TUBE TP SCH (09:13)
[2018-05-31] MEDS: POLYETHYLENE GLYCOL 3350 119 GM BTL PO SCH (09:18)
--- NOTE | 2018-05-31 10:38 | PN ---
Physical Exam: SUBJECTIVE: Patient seen and examined at the bedside. still reports intermittent upper epigastric pain/discomfort. OBJECTIVE: ammonia 83, start lactulose bilateral lower ext parasthesia, will start gabapentin Vital Signs Period Temp Pulse Resp BP Sys/Pulliam Pulse Ox Last 24 Hr 98.2 F-98.6 F 93-105 18-18 105-115/66-82 97 GENERAL: The patient is awake, alert, and fully oriented, in no acute distress. HEAD: Normal with no signs of trauma. EYES: PERRL, extraocular movements intact, sclera anicteric, conjunctiva clear. No ptosis. ENT: Ears normal, nares patent, oropharynx clear without exudates, moist mucous membranes. NECK: Trachea midline, full range of motion, supple. LUNGS: Breath sounds equal, clear to auscultation bilaterally, no wheezes, no crackles, no accessory muscle use. HEART: Regular rate and rhythm, S1, S2 without murmur, rub or gallop. ABDOMEN: Soft, diffusely tender, mildy distended, normoactive bowel sounds rebound, no hepatosplenomegaly, no masses. EXTREMITIES: 2+ pulses, warm, well-perfused, no edema. NEUROLOGICAL:normal speech, gait steady PSYCH: Normal mood, normal affect. SKIN: Warm, dry, normal turgor, no rashes or lesions noted Laboratory Results - last 24 hr 05/30/18 05/30/18 05/30/18 11:37 13:30 16:49 WBC RBC Hgb Hct MCV MCH MCHC RDW Plt Count MPV Sodium Potassium Chloride Carbon Dioxide Anion Gap BUN Creatinine Creat Clearance w eGFR POC Glucometer 169 160 Random Glucose Calcium Magnesium Ammonia Peritoneal WBC 547 Peritoneal RBC 351 Periton Neutrophils 3 Periton Lymphocytes 70 Peritoneal Monocytes 12 Periton Macrophages 15 05/30/18 05/31/18 05/31/18 22:01 05:53 06:20 WBC 9.7 RBC 3.05 L Hgb 9.7 L Hct 29.4 L MCV 96.6 H MCH 31.8 MCHC 32.9 RDW 17.2 H Plt Count 203 MPV 8.0 Sodium Potassium Chloride Carbon Dioxide Anion Gap BUN Creatinine Creat Clearance w eGFR POC Glucometer 166 124 Random Glucose Calcium Magnesium Ammonia Peritoneal WBC Peritoneal RBC Periton Neutrophils Periton Lymphocytes Peritoneal Monocytes Periton Macrophages 05/31/18 05/31/18 06:20 06:20 WBC RBC Hgb Hct MCV MCH MCHC RDW Plt Count MPV Sodium 136 Potassium 4.3 Chloride 103 Carbon Dioxide 25 Anion Gap 7 L BUN 7 Creatinine 0.5 L Creat Clearance w eGFR > 60 POC Glucometer Random Glucose 114 H Calcium 8.1 L Magnesium 1.5 L Ammonia 83.20 H Peritoneal WBC Peritoneal RBC Periton Neutrophils Periton Lymphocytes Peritoneal Monocytes Periton Macrophages Active Medications Generic Name Dose Route Start Last Admin Trade Name Freq PRN Reason Stop Dose Admin Chlordiazepoxide HCl 5 mg 05/29/18 22:00 05/31/18 09:08 Librium - PO 5 mg BID [facility] Administration Furosemide 40 mg 05/27/18 10:00 05/31/18 09:08 Lasix - PO 40 mg DAILY [facility] Administration Hydrocortisone 1 applic 05/27/18 12:00 05/31/18 09:13 Anusol 2.5% Hc Cream - TP 1 applic DAILY [facility] Administration Insulin Aspart 1 vial 05/21/18 22:00 05/31/18 06:15 Novolog Vial Sliding Scale - SQ Not Given ACHS [facility] Protocol Magnesium Oxide 400 mg 05/23/18 22:00 05/31/18 09:08 Mag-Ox - PO 400 mg BID [facility] Administration Oxycodone HCl 5 mg 05/26/18 11:16 05/31/18 09:07 Roxicodone - PO 5 mg Q6H PRN Administration PAIN LEVEL 4 - 6 Polyethylene Glycol 17 gm 05/26/18 11:15 05/31/18 09:18 Miralax (For Daily Use) - PO 17 gm DAILY [facility] Administration Senna 1 tab 05/26/18 22:00 05/30/18 21:57 Senna - PO 1 tab HS [facility] Administration Spironolactone 100 mg 05/27/18 10:00 05/31/18 09:09 Aldactone - PO 100 mg DAILY [facility] Administration Thiamine HCl 100 mg 05/22/18 10:00 05/31/18 09:08 Vitamin B1 - PO 100 mg DAILY [facility] Administration ASSESSMENT/PLAN: Patient is a 42 year old female with a significant past medical history of ETOH abuse, diabetes, hep C, fatty liver, with possible cirrhosis. She presents to the ED from [facility] (was about to start rehab for ETOH abuse), for increased in abdominal girth and abdominal pain. --------- Abdominal pain ETOH abuse Diabetes Hep C Fatty liver Ascites Liver Cirrh Electroyte imbalance possible SBP Lactate elevated, hyponatremic, hypokalemic facial twitches elevated ammonia level ----- Imaging: ct abd pelvis: large amt of free intraperitoneal fluid seen within abd and pelvis. multiple right hepatic lobe hypodense lesions are noted which may be in the basis of neoplastic disease. peripancreatic sot tissue stranding noted which could be due to acute pancreatitis GI: Abdominal pain, improving. reports mild epigastric discomfort/pain. Liver cirrhosis with ascites with hypodense nodules s/p paracentesis on 05/23/2018 with 2 liters removed On 05/30/2018 had 2nd paracentesis with 1 liter removed will need series of hep b vaccines as outpatient On Aldcactone 100mg daily, lasix 40mg daily monitor weights, intake and output Oxycodone 5mg prn for pain GI following. patient to follow up outpatient Patient will need outpatient follow up in 6 months for HCC screening. R/o spontaneous bacterial peritonitis. compeleted full course of augmentin 875mg bid. followed by ID. Psyche: ETOH abuse. finished Librium taper. No evidence of withdrawal on exam. On Folate and thiamine Endocrine: Diabetes: novolog ss, bgms hmga1c in a.m. lower ext parasthesia. start on gabapentin 100mg daily Electrolytes: Hypomagnesium. remains low. magnesium 400mg bid ordered. Hyperammonemia. ammonia 83. start Lactulose fen PO intake adequate Electrolytes daily Diabetic/Sodium controlled diet prophy daily ambulation Visit type - Emergency Visit Emergency Visit: Yes ED Registration Date: 05/20/18 Care time: The patient presented to the Emergency Department on the above date and was hospitalized for further evaluation of their emergent condition. - New Patient This patient is new to me today: No - Critical Care Critical Care patient: No - Discharge Referral Referred to [facility] No
--- NOTE | 2018-05-31 11:07 | PN ---
Progress Note, Physician History of Present Illness: patient stable doing well abd distension pain still present - Current Medication List Current Medications: Active Medications Chlordiazepoxide HCl (Librium -) 5 mg PO BID [facility] Last Admin: 05/31/18 09:08 Dose: 5 mg Furosemide (Lasix -) 40 mg PO DAILY [facility] Last Admin: 05/31/18 09:08 Dose: 40 mg Hydrocortisone (Anusol 2.5% Hc Cream -) 1 applic TP DAILY [facility] Last Admin: 05/31/18 09:13 Dose: 1 applic Insulin Aspart (Novolog Vial Sliding Scale -) 1 vial SQ ACHS [facility]; Protocol Last Admin: 05/31/18 06:15 Dose: Not Given Magnesium Oxide (Mag-Ox -) 400 mg PO BID [facility] Last Admin: 05/31/18 09:08 Dose: 400 mg Oxycodone HCl (Roxicodone -) 5 mg PO Q6H PRN PRN Reason: PAIN LEVEL 4 - 6 Last Admin: 05/31/18 09:07 Dose: 5 mg Polyethylene Glycol (Miralax (For Daily Use) -) 17 gm PO DAILY [facility] Last Admin: 05/31/18 09:18 Dose: 17 gm Senna (Senna -) 1 tab PO HS [facility] Last Admin: 05/30/18 21:57 Dose: 1 tab Spironolactone (Aldactone -) 100 mg PO DAILY [facility] Last Admin: 05/31/18 09:09 Dose: 100 mg Thiamine HCl (Vitamin B1 -) 100 mg PO DAILY [facility] Last Admin: 05/31/18 09:08 Dose: 100 mg - Objective Vital Signs: Vital Signs Temperature 98.2 F 05/31/18 09:05 Pulse Rate 106 H 05/31/18 09:05 Respiratory Rate 18 05/31/18 09:05 Blood Pressure 107/69 05/31/18 09:05 O2 Sat by Pulse Oximetry (%) 98 05/31/18 09:07 Constitutional: Yes: Calm, Mild Distress Cardiovascular: Yes: Regular Rate and Rhythm Respiratory: Yes: Regular, CTA Bilaterally Gastrointestinal: Yes: Normal Bowel Sounds, Ascites, Distention, Tenderness Musculoskeletal: Yes: WNL Extremities: Yes: WNL Neurological: Yes: Alert, Oriented Psychiatric: Yes: Alert, Oriented Labs: CBC, BMP 05/31/18 06:20 05/31/18 06:20 INR, PTT INR 1.56 (0.83-1.09) H 05/23/18 07:15 Assessment/Plan Abdominal pain ETOH abuse Diabetes Hep C Fatty liver Ascites Liver Cirrh Electroyte imbalance possible SBP Lactate elevated, hyponatremic, hypokalemic r/o malignancy plan still wiht distension pain better final plan awaited rest as per the team
[2018-05-31] MEDS ORDERED: LACTULOSE 20 GM/30 ML UDC (FOR ORAL USE ONLY) PO PRN (11:25)
[2018-05-31] MEDS ORDERED: GABAPENTIN 100 MG CAPSULE (FP) PO ONE (14:28)
--- NOTE | 2018-05-31 17:10 | PN ---
GI Progress Note Subjective: S/P: Complains of abdominal pain Repeat paracentesis cell count failed to reveal SBP ? amount of fluid take out: 1 liter per the patient 150 lbs. today - Objective Vital Signs: Vital Signs Temperature 98 F 05/31/18 13:15 Pulse Rate 95 H 05/31/18 13:15 Respiratory Rate 17 05/31/18 13:15 Blood Pressure 93/56 L 05/31/18 13:15 O2 Sat by Pulse Oximetry (%) 98 05/31/18 09:07 Constitutional: Calm Eyes: No: Sclera Icterus Cardiovascular: Yes: Regular Rate and Rhythm Respiratory: Yes: CTA Bilaterally Gastrointestinal Inspection: Yes: Distention ...Auscultate: Yes: Normoactive Bowel Sounds ...Palpate: Yes: Soft. No: Splenomegaly, Tenderness ...Percussion: Yes: Dullness. No: Tympanitic Edema: No (No LE edema) Neurological: Yes: Alert Labs: CBC, BMP 05/31/18 06:20 05/31/18 06:20 INR, PTT INR 1.56 (0.83-1.09) H 05/23/18 07:15 Hepatic Panel Total Bilirubin 0.7 mg/dL (0.2-1) 05/28/18 14:13 Direct Bilirubin 0.6 mg/dL (0.0-0.2) H 05/28/18 14:13 AST 32 U/L (15-37) 05/28/18 14:13 ALT 11 U/L (13-61) L 05/28/18 14:13 Alkaline Phosphatase 165 U/L (45-117) H 05/28/18 14:13 Albumin 2.0 g/dl (3.4-5.0) L 05/28/18 14:13 Problem List - Problems (1) Ascitic fluid Assessment/Plan: Sequela of alcoholic liver disease: Lasix 40mg daily Aldactone 100mg daily 2g low sodium diet Complete alcohol cessation advised Daily weights / I's and O's Code(s): R18.8 - OTHER ASCITES (2) Abnormal MRI, liver Assessment/Plan: Will need follow-up of liver lesion and bile duct findings as an outpatient Code(s): R93.2 - ABNORMAL FINDINGS ON DX IMAGING OF LIVER AND BILIARY TRACT
[2018-05-31] MEDS: LACTULOSE 20 GM/30 ML UDC (FOR ORAL USE ONLY) PO SCH (22:00)
[2018-06-01] MEDS: oxyCODONE HCL 5 MG TABLET PO PRN ×2 (03:41→09:44)
[2018-06-01] MEDS: INSULIN SLIDING SCALE (NOVOLOG) 1 VIAL SQ SCH ×2 (06:13→11:51)
[2018-06-01 09:42] VITALS: BP 124/79; PULSE 95; TEMP 98
[2018-06-01] MEDS: LACTULOSE 20 GM/30 ML UDC (FOR ORAL USE ONLY) PO SCH (09:43)
[2018-06-01] MEDS: FUROSEMIDE 40 MG TABLET (FP) PO SCH (09:43)
[2018-06-01] MEDS: MAGNESIUM OXIDE 400 MG TABLET (FP) PO SCH (09:44)
[2018-06-01] MEDS: THIAMINE HCL 100 MG TABLET (FP) PO SCH (09:44)
[2018-06-01] MEDS: HYDROCORTISONE 2.5% TOPICAL CREAM 30 GM TUBE TP SCH (09:45)
[2018-06-01] MEDS: SPIRONOLACTONE 25 MG TABLET (FP) PO SCH (09:45)
[2018-06-01] MEDS: POLYETHYLENE GLYCOL 3350 119 GM BTL PO SCH (09:46)
[2018-06-01] MEDS ORDERED: GABAPENTIN 100 MG CAPSULE (FP) PO SCH (10:00)
--- NOTE | 2018-06-01 12:37 | PN ---
Progress Note, Physician History of Present Illness: stable still with abd distension mild tenderness - Current Medication List Current Medications: Active Medications Furosemide (Lasix -) 40 mg PO DAILY [facility] Last Admin: 06/01/18 09:43 Dose: 40 mg Gabapentin (Neurontin -) 100 mg PO DAILY [facility] Last Admin: 06/01/18 09:44 Dose: 100 mg Hydrocortisone (Anusol 2.5% Hc Cream -) 1 applic TP DAILY [facility] Last Admin: 06/01/18 09:45 Dose: Not Given Insulin Aspart (Novolog Vial Sliding Scale -) 1 vial SQ ACHS [facility]; Protocol Last Admin: 06/01/18 11:51 Dose: 2 units Lactulose (Cephulac (Oral Use)) 20 gm PO TID PRN PRN Reason: CONSTIPATION Last Admin: 05/31/18 14:47 Dose: 20 gm Lactulose (Cephulac (Oral Use)) 20 gm PO BID [facility] Last Admin: 06/01/18 09:43 Dose: 20 gm Magnesium Oxide (Mag-Ox -) 400 mg PO BID [facility] Last Admin: 06/01/18 09:44 Dose: 400 mg Oxycodone HCl (Roxicodone -) 5 mg PO Q6H PRN PRN Reason: PAIN LEVEL 4 - 6 Last Admin: 06/01/18 09:44 Dose: 5 mg Polyethylene Glycol (Miralax (For Daily Use) -) 17 gm PO DAILY [facility] Last Admin: 06/01/18 09:46 Dose: 17 gm Spironolactone (Aldactone -) 100 mg PO DAILY [facility] Last Admin: 06/01/18 09:45 Dose: 100 mg Thiamine HCl (Vitamin B1 -) 100 mg PO DAILY [facility] Last Admin: 06/01/18 09:44 Dose: 100 mg - Objective Vital Signs: Vital Signs Temperature 98.0 F 06/01/18 09:41 Pulse Rate 95 H 06/01/18 09:41 Respiratory Rate 18 06/01/18 09:41 Blood Pressure 124/79 06/01/18 09:41 O2 Sat by Pulse Oximetry (%) 98 05/31/18 09:07 Constitutional: Yes: No Distress, Calm Cardiovascular: Yes: Regular Rate and Rhythm Respiratory: Yes: Regular, CTA Bilaterally Gastrointestinal: Yes: Normal Bowel Sounds, Soft Musculoskeletal: Yes: WNL Extremities: Yes: WNL Neurological: Yes: Alert Psychiatric: Yes: Alert Labs: CBC, BMP 05/31/18 06:20 05/31/18 06:20 INR, PTT INR 1.56 (0.83-1.09) H 05/23/18 07:15 Assessment/Plan Abdominal pain ETOH abuse Diabetes Hep C Fatty liver Ascites Liver Cirrh Electroyte imbalance possible SBP Lactate elevated, hyponatremic, hypokalemic r/o malignancy plan distension better pain better final plan awaited rest as per the team
--- NOTE | 2018-06-01 12:57 | DS ---
Physical Exam: SUBJECTIVE: Patient seen and examined at the bedside. In no acute distress, sitting up eating her lunch. denies pain. OBJECTIVE: for discharge to [facility], accepted by Dr. Lundberg who spoke with Celeste Live NP on 05/31/2018 Vital Signs Period Temp Pulse Resp BP Sys/Pulliam Pulse Ox Last 24 Hr 97.3 F-98.0 F 92-101 17-18 93-124/56-79 PHYSICAL EXAM GENERAL: The patient is awake, alert, and fully oriented, in no acute distress. HEAD: Normal with no signs of trauma. EYES: PERRL, extraocular movements intact, sclera anicteric, conjunctiva clear. No ptosis. ENT: Ears normal, nares patent, oropharynx clear without exudates, moist mucous membranes. NECK: Trachea midline, full range of motion, supple. LUNGS: Breath sounds equal, clear to auscultation bilaterally, no wheezes, no crackles, no accessory muscle use. HEART: Regular rate and rhythm, S1, S2 without murmur, rub or gallop. ABDOMEN: Soft, diffusely tender, mildy distended, normoactive bowel sounds rebound, no hepatosplenomegaly, no masses. EXTREMITIES: 2+ pulses, warm, well-perfused, no edema. NEUROLOGICAL:normal speech, gait steady PSYCH: Normal mood, normal affect. SKIN: Warm, dry, normal turgor, no rashes or lesions noted LABS Laboratory Results - last 24 hr 05/31/18 05/31/18 06/01/18 17:23 22:29 05:38 POC Glucometer 168 200 137 06/01/18 11:30 POC Glucometer 197 HOSPITAL COURSE: Patient is a 42 year old female with a significant past medical history of ETOH abuse, diabetes, hep C, fatty liver, with possible cirrhosis. She presents to the ED from [facility] on 05/20/2018 (was about to start rehab for ETOH abuse), for increased in abdominal girth and abdominal pain. --------- Abdominal pain ETOH abuse Diabetes Hep C Fatty liver Ascites Liver Cirrh Electroyte imbalance possible SBP Lactate elevated, hyponatremic, hypokalemic facial twitches elevated ammonia level ----- Imaging: ct abd pelvis: large amt of free intraperitoneal fluid seen within abd and pelvis. multiple right hepatic lobe hypodense lesions are noted which may be in the basis of neoplastic disease. peripancreatic sot tissue stranding noted which could be due to acute pancreatitis GI: Abdominal pain, resolved. denies abdominal pain or discomfort, tolerating regular diet s/p paracentesis on 05/23/2018 with 2 liters removed and on 05/30/2018 had 2nd paracentesis with 1 liter removed will need series of hep b vaccines as outpatient On Aldcactone 100mg daily, lasix 40mg daily, lactulose Patient will need outpatient follow up in 6 months for HCC screening. R/o spontaneous bacterial peritonitis. completed full course of augmentin 875mg bid. followed by ID during hospitalization. no further antibiotics. Psyche: ETOH abuse. finished Librium taper. No evidence of withdrawal on exam. On Folate and thiamine Endocrine: Diabetes: novolog ss, bgms lower ext parasthesia. start on gabapentin 100mg daily Electrolytes: Hypomagnesium. magnesium 400mg bid ordered. Hyperammonemia. ammonia 83. start Lactulose stable for discharge back to [facility]. Patient to follow up with Gastroenterology as an outpatient. Date of Admission:05/20/18 Date of Discharge: 06/01/18 Minutes to complete discharge: 60 Discharge Summary Reason For Visit: ASCITES, PANCREATITIS Current Active Problems Abnormal CT scan, liver (Acute) Abnormal MRI, liver (Acute) Alcohol withdrawal (Acute) Alcoholic cirrhosis of liver with ascites (Acute) Ascitic fluid (Acute) History of laparoscopic cholecystectomy (Acute) History of pancreatitis (Acute) Pancreatitis (Acute) Condition: Improved - Instructions Diet, Activity, Other Instructions: Mrs Mendoza You were admitted on 05/20/2018 for abdominal pain. You were ruled out for pancreatitis. We did a cat scan of your abdomen and have performed two paracentesis. We further recommend the following: Abdominal pain: A CT scan imaging showed a large amount of free intraperitoneal fluid seen within abd and pelvis. multiple right hepatic lobe hypodense lesions are noted which may be in the basis of neoplastic disease. You will need to follow up within 6 months for hepatocellular cancer screening. I have referred you to see the GI specialist as an outpatient. Please call and make an appointment. We performed two paracentesis, one on 05/23 and the second one on 05/30. Please follow up with the GI specialist for results of the fluid we removed. You will need to start series of hep b vaccines as outpatient Please continue: 2g low sodium diet Complete alcohol cessation advised Daily weights / I's and O's Please continue taking the medications as outlined in your discharge instructions. Please call me with any questions that you may have. [facility] @ [facility] [phone] Referrals: Dann Mccurdy DO [Staff Physician] - ON STAFF,NOT [Primary Care Provider] - Disposition: I.P. ALCOHOL/SUBS ABUSE REHAB - Home Medications Comprehensive Discharge Medication List: Ambulatory Orders Folic Acid 0.8 mg PO DAILY 05/19/18 Glipizide 2.5 mg PO DAILY 05/19/18 Furosemide [Lasix -] 40 mg PO DAILY tablet 06/01/18 Gabapentin [Neurontin -] 100 mg PO DAILY capsule 06/01/18 Hydrocortisone 2.5% Topical Cr [Anusol-Hc -] 1 applic TP DAILY tube 06/01/18 Insulin Sliding Scale [Novolog Vial Sliding Scale -] 1 vial SQ ACHS units 06/01 Lactulose (Oral Use) [Cephulac -] 20 gm PO BID udc 06/01/18 Magnesium Oxide [Mag-Ox -] 400 mg PO BID tablet 06/01/18 Polyethylene Glycol 3350 [Miralax 119 gm Btl -] 17 gm PO DAILY bottle 06/01/18 Sennosides [Senna -] 1 tab PO HS tablet 06/01/18 Spironolactone [Aldactone -] 100 mg PO DAILY tablet 06/01/18 Thiamine HCl [Vitamin B1 -] 100 mg PO DAILY tablet 06/01/18 This patient is new to me today: No Emergency Visit: Yes ED Registration Date: 05/20/18 Care time: The patient presented to the Emergency Department on the above date and was hospitalized for further evaluation of their emergent condition. Critical Care patient: No - Discharge Referral Referred to [facility] Med P.C.: No
== END 2018-06-01 14:41 | disposition other institution (70) | DRG 229 ==
LOC: JER 13:36 → JERBED 17:53 → J5S 22:26
PROVIDERS: ADMIT Internal Medicine; ATTEND Nurse Practitioner Family
PROC: HZ2ZZZZ Detoxification Services for Substance Abuse Treatment (ICD-10-PCS; 2018-05-22)
PROC: 0W9G3ZX Drainage of Peritoneal Cavity, Percutaneous Approach, Diagnostic (ICD-10-PCS; principal; 2018-05-30)
DX: K65.2 Spontaneous bacterial peritonitis (principal); E87.6 Hypokalemia; F10.239 Alcohol dependence with withdrawal, unspecified; B19.20 Unspecified viral hepatitis C without hepatic coma; K76.0 Fatty (change of) liver, not elsewhere classified; E87.1 Hypo-osmolality and hyponatremia; K85.90 Acute pancreatitis without necrosis or infection, unspecified; K70.31 Alcoholic cirrhosis of liver with ascites; E72.20 Disorder of urea cycle metabolism, unspecified; R18.8 Other ascites; K74.60 Unspecified cirrhosis of liver; R93.2 Abnormal findings on diagnostic imaging of liver and biliary tract; E72.4 Disorders of ornithine metabolism; K64.9 Unspecified hemorrhoids; K76.9 Liver disease, unspecified; R25.3 Fasciculation
CPT/HCPCS: 36415; 71045-TC-FY; 74176-TC; 74182-TC; 76942-TC; 80048; 80053; 80076; 81003; 81015; 82042; 82105; 82140; 82150; 82728; 82803; 82945; 82962; 83036; 83516; 83540; 83550; 83605; 83615; 83690; 83735; 84100; 84134; 84157; 84484; 85025; 85027; 85610; 85730; 86038; 86140; 86704; 86706; 86708; 86803; 87040; 87070; 87075; 87086; 87102; 87116; 87186; 87205; 87206; 87210; 87340; 88108; 88305-TC; 89051; 93005; 93010; 93306-TC; 99283-25

== ENCOUNTER 2018-06-01 15:16 | Inpatient (IN) | payer OTHER ==
--- NOTE | 2018-06-01 19:07 | HP ---
CIWA Score - Admission Criteria [facility]AS Guidelines: Admission for Medically Managed Detox: Requires at least one of the followin. CIWA greater than 12 2. Seizures within the past 24 hours 3. Delirium tremens within the past 24 hours 4. Hallucinations within the past 24 hours 5. Acute intervention needed for co occurring medical disorder 6. Acute intervention needed for co occurring psychiatric disorder 7. Severe withdrawal that cannot be handled at a lower level of care (continued vomiting, continued diarrhea, abnormal vital signs) requiring intravenous medication and/or fluids 8. Admission ROS [facility] - [facility] Chief Complaint: Pt is here for rehab admission for alcohol use. Pt was hospitalized for the last 2 weeks at [facility] for Rx of presumed spontaneous bacterial peritonitis. Pt has no complaints at the present moment- just feeling hungry From [facility] discharge summary: Patient is a 42 year old female with a significant past medical history of ETOH abuse, diabetes, fatty liver, with possible cirrhosis. She presents to the ED from [facility] on 05/20/2018 (was about to start rehab for ETOH abuse), for increased in abdominal girth and abdominal pain. --------- Abdominal pain ETOH abuse Diabetes Hep C- negative Fatty liver Ascites Liver Cirrh Electroyte imbalance possible SBP Lactate elevated, hyponatremic, hypokalemic facial twitches elevated ammonia level ----- Imaging: ct abd pelvis: large amt of free intraperitoneal fluid seen within abd and pelvis. multiple right hepatic lobe hypodense lesions are noted which may be in the basis of neoplastic disease. peripancreatic sot tissue stranding noted which could be due to acute pancreatitis: needs to have biopsy and f/u of these " Allergies/Adverse Reactions: Allergies Allergy/AdvReac Type Severity Reaction Status Date / Time naltrexone AdvReac Verified 06/01/18 17:08 - Ebola screening Have you traveled outside of the country in the last 21 days: No Have you had contact with anyone from an Ebola affected area: No Do you have a fever: No - Review of Systems Constitutional: No Symptoms Reported Patient History - Patient Medical History Hx Anemia: No Hx Asthma: No Hx Chronic Obstructive Pulmonary Disease (COPD): No Hx Cancer: No Hx Cardiac Disorders: No Hx Congestive Heart Failure: No Hx Hypertension: No Hx Hypercholesterolemia: No Hx Pacemaker: No HX Cerebrovascular Accident: No Hx Seizures: No Hx Dementia: No Hx Diabetes: Yes (ON MEDS) Hx Gastrointestinal Disorders: No Hx Liver Disease: Yes (fatty liver) Hx Genitourinary Disorders: No Hx Sexually Transmitted Disorders: No Hx Renal Disease (ESRD): No Hx Thyroid Disease: No Hx Human Immunodeficiency Virus (HIV): No (last 2011 negative) Hx Hepatitis C: Yes Hx Depression: No Hx Suicide Attempt: No Hx Bipolar Disorder: No Hx Schizophrenia: No - Patient Surgical History Past Surgical History: Yes Hx Cholecystectomy: Yes ([facility] 2013 [place]) - PPD History Date: 05/21/18 - Reproductive History Last Menstrual Period: 03/19/18 - Smoking Cessation Smoking history: Former smoker Have you smoked in the past 12 months: Yes Aproximately how many cigarettes per day: 3 If you are a former smoker, when did you quit?: 05/02/18 Cigars Per Day: 0 Hx Chewing Tobacco Use: No Initiated information on smoking cessation: No Family Disease History - Family Disease History Family Disease History: Other: Father (muscular dystropy, heroin addict), Mother (heroin addict), Sister (muscular dysptrophy) Admission Physical Exam [facility] - Physical General Appearance: Yes: Within Normal Limits HEENTM: Yes: Within Normal Limits Respiratory: Yes: Within Normal Limits Neck: Yes: Within Normal Limits Cardiology: Yes: Within Normal Limits Abdominal: Yes: Within Normal Limits, Protuberent, Distended (with known ascites and liver mass) Genitourinary: Yes: Within Normal Limits Back: Yes: Within Normal Limits Extremities: Yes: Within Normal Limits (walks with cane since a recent fall- about a month ago down 15 steps) Neurological: Yes: Within Normal Limits, 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, Motor Strength 5 /5 Integumentary: Yes: Within Normal Limits Lymphatic: Yes: Within Normal Limits - Diagnostic (1) Abnormal CT scan, liver Current Visit: No Status: Acute (2) Abnormal MRI, liver Current Visit: No Status: Acute (3) Alcoholic cirrhosis of liver with ascites Current Visit: No Status: Acute (4) History of ascites Current Visit: No Status: Acute (5) Hypokalemia Current Visit: No Status: Acute (6) History of fatty infiltration of liver Current Visit: No Status: Chronic (7) Type 2 diabetes mellitus Current Visit: No Status: Chronic Qualifiers: Diabetes mellitus 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
[2018-06-01] MEDS ORDERED: MAGNESIUM HYDROX 2400MG/30ML ORAL SUSPENSION 30 ML CUP PO PRN (19:10)
[2018-06-01] MEDS ORDERED: MAG HYDROX/AL HYDROX/SIMETH 30 ML UNIT-DOSE CUP PO PRN (19:10)
[2018-06-01] MEDS ORDERED: MAGNESIUM CITRATE 300 ML BOTTLE PO PRN (19:10)
[2018-06-01] MEDS ORDERED: MENTHOL/PHENOL 1 EACH UD MM PRN (19:10)
[2018-06-01] MEDS ORDERED: P-EPHED 60MG/TRIPROLIDI 2.5MG TABLET PO PRN (19:10)
[2018-06-01] MEDS ORDERED: LOPERAMIDE HCL 2 MG CAPSULE PO PRN (19:10)
[2018-06-01] MEDS ORDERED: guaiFENesin/D-METHORPHAN HB 10 ML UNIT-DOSE CUPS PO PRN (19:10)
[2018-06-01] MEDS ORDERED: LACTULOSE 20 GM/30 ML UDC (FOR ORAL USE ONLY) PO ONE (19:17)
[2018-06-01] MEDS ORDERED: hydrOXYzine PAMOATE 50 MG CAPSULE (FP) PO PRN (19:21)
[2018-06-01] MEDS: INSULIN SLIDING SCALE (NOVOLOG) 1 VIAL SQ SCH (22:26)
[2018-06-01] MEDS: THIAMINE HCL 100 MG TABLET (FP) PO SCH (22:31)
[2018-06-01] MEDS: MELATONIN 5 MG TABLETS PO PRN (22:31)
[2018-06-01] MEDS: MAGNESIUM OXIDE 400 MG TABLET (FP) PO SCH (23:42)
[2018-06-02] MEDS ORDERED: PT OWN MED DRAWER 7, Y5N ONE ×3 (03:11→21:21)
[2018-06-02] MEDS ORDERED: INSULIN (NOVOLOG) ASPART 100 UNITS/ML 10ML VIAL ONE ×2 (03:11→16:49)
[2018-06-02] MEDS: glipiZIDE 5 MG TABLET (FP) PO SCH (06:54)
[2018-06-02] MEDS: INSULIN SLIDING SCALE (NOVOLOG) 1 VIAL SQ SCH ×3 (06:55→16:50)
[2018-06-02] MEDS: POTASSIUM CHLORIDE TABS 20 MEQ TABLET.ER (FP) PO SCH (09:52)
[2018-06-02] MEDS: SPIRONOLACTONE 25 MG TABLET (FP) PO SCH (09:52)
[2018-06-02] MEDS: FOLIC ACID 1 MG TABLET (FP) PO SCH (09:52)
[2018-06-02] MEDS: MAGNESIUM OXIDE 400 MG TABLET (FP) PO SCH ×2 (09:53→21:21)
[2018-06-02] MEDS: PRENATAL VITAMINS W/ FOLIC ACID TABLET (FP) PO SCH (09:53)
[2018-06-02] MEDS: FUROSEMIDE 40 MG TABLET (FP) PO SCH (09:53)
[2018-06-02] MEDS: GABAPENTIN 100 MG CAPSULE (FP) PO SCH (09:54)
[2018-06-02] MEDS ORDERED: MAGNESIUM OXIDE 400 MG TABLET (FP) PO SCH (10:00)
[2018-06-02] MEDS ORDERED: SPIRONOLACTONE 25 MG TABLET (FP) PO SCH (10:00)
[2018-06-02] MEDS ORDERED: FUROSEMIDE 40 MG TABLET (FP) PO SCH (10:00)
[2018-06-02] MEDS ORDERED: LACTULOSE 20 GM/30 ML UDC (FOR ORAL USE ONLY) PO SCH (10:00)
[2018-06-02] MEDS: POLYETHYLENE GLYCOL 3350 119 GM BTL PO SCH (10:40)
--- NOTE | 2018-06-02 12:41 | PN ---
[facility] Progress Note Note: Called by nursing staff on behalf of patient requesting that Vistaril be ordered as needed for anxiety
[2018-06-02] MEDS: hydrOXYzine PAMOATE 50 MG CAPSULE (FP) PO PRN ×2 (15:50→21:21)
[2018-06-02] MEDS: THIAMINE HCL 100 MG TABLET (FP) PO SCH (21:19)
[2018-06-02] MEDS: SENNOSIDES 8.6MG TABLET (FP) PO SCH (21:21)
[2018-06-02] MEDS ORDERED: TUBERCULIN PPD 5 TU/0.1ML VIAL ID ONE (21:52)
[2018-06-03] MEDS ORDERED: INSULIN (NOVOLOG) ASPART 100 UNITS/ML 10ML VIAL ONE ×3 (05:29→16:41)
[2018-06-03] MEDS: glipiZIDE 5 MG TABLET (FP) PO SCH (06:41)
[2018-06-03] MEDS: INSULIN SLIDING SCALE (NOVOLOG) 1 VIAL SQ SCH ×3 (06:41→16:41)
[2018-06-03] MEDS ORDERED: PT OWN MED DRAWER 7, Y5N ONE (08:58)
[2018-06-03] MEDS: GABAPENTIN 100 MG CAPSULE (FP) PO SCH (10:34)
[2018-06-03] MEDS: POTASSIUM CHLORIDE TABS 20 MEQ TABLET.ER (FP) PO SCH (10:34)
[2018-06-03] MEDS: FOLIC ACID 1 MG TABLET (FP) PO SCH (10:34)
[2018-06-03] MEDS: SPIRONOLACTONE 25 MG TABLET (FP) PO SCH (10:34)
[2018-06-03] MEDS: FUROSEMIDE 40 MG TABLET (FP) PO SCH (10:35)
[2018-06-03] MEDS: PRENATAL VITAMINS W/ FOLIC ACID TABLET (FP) PO SCH (10:35)
[2018-06-03] MEDS: MAGNESIUM OXIDE 400 MG TABLET (FP) PO SCH ×2 (10:36→21:11)
[2018-06-03] MEDS: IBUPROFEN 400 MG TABLET (FP) PO PRN (10:37)
[2018-06-03] MEDS: hydrOXYzine PAMOATE 50 MG CAPSULE (FP) PO PRN ×2 (10:37→21:09)
[2018-06-03] MEDS: POLYETHYLENE GLYCOL 3350 119 GM BTL PO SCH (10:38)
--- NOTE | 2018-06-03 12:31 | HP ---
Psychiatrist Admission - Data Date of interview: 06/03/18 Admission source: Kishore pham [facility] Identifying data: This is the first admission to [address] [place] [address] rehabilitation for this 42 years old AA female single mother of 15 yo daughter, child resides with her father.Patient resides with her parents,unemployed. Medical History: Liver cirrhosis,DM,Hep C. Psychiatric History: Patient denies psych history.No psychiatric hospitalizations,no suicidal attempts.Never being on psychotropics. Physical/Sexual Abuse/Trauma History: patient denies Vital Signs: Vital Signs - 24 hr 06/03/18 06/03/18 06/03/18 00:30 03:30 07:08 Temperature 98.8 F Pulse Rate 106 H Respiratory 18 18 19 Rate Blood Pressure 118/82 06/03/18 09:26 Temperature Pulse Rate 110 H Respiratory Rate Blood Pressure 119/92 Allergies/Adverse Reactions: Allergies Allergy/AdvReac Type Severity Reaction Status Date / Time naltrexone AdvReac Verified 06/01/18 17:08 Concur with the findings of this exam: Yes - Substance Abuse/Tx History Hx Alcohol Use: Yes (reports drinking since 18 yo,beer a few cans,then vodka 1 pint couple of ti) Hx Substance Use: No Substance Use Type: Alcohol Hx Substance Use Treatment: Yes (this is her first inpatient rehasbilitation treatment) Mental Status Exam - Mental Status Exam Alert and Oriented to: Time, Place, Person Cognitive Function: Grossly Intact Patient Appearance: Well Groomed Mood: Euthymic Affect: Mood Congruent Patient Behavior: Cooperative Speech Pattern: Clear Voice Loudness: Normal Thought Process: Goal Oriented Thought Disorder: Not Present Hallucinations: Denies Suicidal Ideation: Denies Homicidal Ideation: Denies Insight/Judgement: Fair Sleep: Fair Appetite: Fair Muscle strength/Tone: Normal Gait/Station: Normal Psychiatric Findings - Problem List ([place] 1, 2,3) (1) Alcohol dependence Current Visit: Yes Status: Chronic (2) Hx of hepatitis C Current Visit: Yes Status: Chronic (3) Type 2 diabetes mellitus Current Visit: No Status: Chronic 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
[2018-06-03] MEDS: SENNOSIDES 8.6MG TABLET (FP) PO SCH (21:09)
[2018-06-03] MEDS: THIAMINE HCL 100 MG TABLET (FP) PO SCH (21:09)
[2018-06-03] MEDS: MELATONIN 5 MG TABLETS PO PRN (21:09)
[2018-06-04] MEDS: INSULIN SLIDING SCALE (NOVOLOG) 1 VIAL SQ SCH ×3 (06:29→16:51)
[2018-06-04] MEDS: glipiZIDE 5 MG TABLET (FP) PO SCH (06:30)
[2018-06-04] MEDS ORDERED: PT OWN MED DRAWER 7, Y5N ONE ×3 (06:31→20:31)
[2018-06-04] MEDS: GABAPENTIN 100 MG CAPSULE (FP) PO SCH (10:24)
[2018-06-04] MEDS: PRENATAL VITAMINS W/ FOLIC ACID TABLET (FP) PO SCH (10:24)
[2018-06-04] MEDS: FOLIC ACID 1 MG TABLET (FP) PO SCH (10:24)
[2018-06-04] MEDS: POTASSIUM CHLORIDE TABS 20 MEQ TABLET.ER (FP) PO SCH (10:24)
[2018-06-04] MEDS: SPIRONOLACTONE 25 MG TABLET (FP) PO SCH (10:24)
[2018-06-04] MEDS: FUROSEMIDE 40 MG TABLET (FP) PO SCH (10:24)
[2018-06-04] MEDS: MAGNESIUM OXIDE 400 MG TABLET (FP) PO SCH ×2 (10:25→21:45)
[2018-06-04] MEDS: POLYETHYLENE GLYCOL 3350 119 GM BTL PO SCH (10:28)
[2018-06-04] MEDS ORDERED: INSULIN (NOVOLOG) ASPART 100 UNITS/ML 10ML VIAL ONE ×2 (12:09→16:40)
[2018-06-04] MEDS: THIAMINE HCL 100 MG TABLET (FP) PO SCH (21:45)
[2018-06-04] MEDS: MELATONIN 5 MG TABLETS PO PRN (21:45)
[2018-06-04] MEDS: hydrOXYzine PAMOATE 50 MG CAPSULE (FP) PO PRN (21:45)
[2018-06-04] MEDS: SENNOSIDES 8.6MG TABLET (FP) PO SCH (21:46)
[2018-06-05] MEDS ORDERED: INSULIN (NOVOLOG) ASPART 100 UNITS/ML 10ML VIAL ONE ×3 (00:41→16:33)
[2018-06-05] MEDS ORDERED: PT OWN MED DRAWER 7, Y5N ONE ×5 (03:23→22:17)
[2018-06-05] MEDS: hydrOXYzine PAMOATE 50 MG CAPSULE (FP) PO PRN ×3 (03:27→21:04)
[2018-06-05] MEDS: INSULIN SLIDING SCALE (NOVOLOG) 1 VIAL SQ SCH ×3 (06:37→16:46)
[2018-06-05] MEDS: glipiZIDE 5 MG TABLET (FP) PO SCH (06:38)
[2018-06-05] MEDS: MAGNESIUM OXIDE 400 MG TABLET (FP) PO SCH ×2 (10:22→21:05)
[2018-06-05] MEDS: SPIRONOLACTONE 25 MG TABLET (FP) PO SCH (10:23)
[2018-06-05] MEDS: PRENATAL VITAMINS W/ FOLIC ACID TABLET (FP) PO SCH (10:23)
[2018-06-05] MEDS: FUROSEMIDE 40 MG TABLET (FP) PO SCH (10:24)
[2018-06-05] MEDS: POTASSIUM CHLORIDE TABS 20 MEQ TABLET.ER (FP) PO SCH (10:24)
[2018-06-05] MEDS: GABAPENTIN 100 MG CAPSULE (FP) PO SCH (10:24)
[2018-06-05] MEDS: FOLIC ACID 1 MG TABLET (FP) PO SCH (10:24)
[2018-06-05] MEDS: POLYETHYLENE GLYCOL 3350 119 GM BTL PO SCH (10:26)
--- NOTE | 2018-06-05 16:20 | PN ---
Psychiatric Progress Note Vital Signs: Vital Signs Period Temp Pulse Resp BP Sys/Pulliam Pulse Ox Last 24 Hr 98.4 F 100 16-18 109/76 Date of Session: 06/05/18 Chief Complaint:: Discharge Note HPI: Patient addressing Alcohol Dependence ROS: Hep C, Type 2 DM, Cirrhosis of the liver Current Medications: Active Medications Generic Name Dose Route Start Last Admin Trade Name Freq PRN Reason Stop Dose Admin Al Hydroxide/Mg Hydroxide 30 ml 06/01/18 19:10 Mylanta Oral Suspension - PO Q6H PRN DYSPEPSIA Eucalyptus/Menthol/Phenol/Sorbitol 1 each 06/01/18 19:10 Cepastat Lozenge - MM Q4H PRN SORE THROAT Folic Acid 1 mg 06/02/18 10:00 06/05/18 10:24 Folic Acid - PO 1 mg DAILY TARAN Administration Furosemide 40 mg 06/02/18 10:00 06/05/18 10:24 Lasix - PO 40 mg DAILY TARAN Administration Gabapentin 100 mg 06/02/18 10:00 06/05/18 10:24 Neurontin - PO 100 mg DAILY TARAN Administration Glipizide 2.5 mg 06/02/18 07:00 06/05/18 06:38 Glucotrol - PO 2.5 mg DAILY@0700 TARAN Administration Guaifenesin 10 ml 06/01/18 19:10 Robitussin Dm - PO Q6H PRN COUGH Hydroxyzine Pamoate 50 mg 06/02/18 12:39 06/05/18 10:26 Vistaril - PO 50 mg Q4H PRN Administration ANXIETY Ibuprofen 400 mg 06/01/18 19:10 06/03/18 10:37 Motrin - PO 400 mg Q6H PRN Administration Pain level 4-6 Insulin Aspart 1 vial 06/01/18 19:15 06/05/18 12:02 Novolog Vial Sliding Scale - SQ 4 units TIDAC TARAN Administration Protocol Loperamide HCl 4 mg 06/01/18 19:10 06/04/18 02:06 Imodium - PO 4 mg Q6H PRN Administration DIARRHEA Magnesium Citrate 300 ml 06/01/18 19:10 Citroma - PO Q48H PRN CONSTIPATION Magnesium Hydroxide 30 ml 06/01/18 19:10 Milk Of Magnesia - PO DAILY PRN CONSTIPATION Magnesium Oxide 400 mg 06/01/18 22:00 06/05/18 10:22 Mag-Ox - PO 400 mg BID TARAN Administration Melatonin 5 mg 06/01/18 22:00 06/04/18 21:45 Melatonin PO 5 mg HS PRN Administration INSOMNIA Polyethylene Glycol 17 gm 06/02/18 10:00 06/05/18 10:26 Miralax (For Daily Use) - PO Not Given DAILY TARAN Potassium Chloride 40 meq 06/02/18 10:00 06/05/18 10:24 K-Dur - PO 40 meq DAILY TARAN Administration Multivit/Folic Acid/Iron 1 tab 06/02/18 10:00 06/05/18 10:23 Vitamins (Sjr) - PO 1 tab DAILY TARAN Administration Pseudoephedrine/Triprolidine 1 combo 06/01/18 19:10 Actifed - PO TID PRN NASAL CONGESTION Senna 1 tab 06/02/18 22:00 06/04/18 21:46 Senna - PO Not Given HS TARAN Spironolactone 100 mg 06/02/18 10:00 06/05/18 10:23 Aldactone - PO 100 mg DAILY TARAN Administration Thiamine HCl 100 mg 06/01/18 22:00 06/04/18 21:45 Vitamin B1 - PO 100 mg HS TARAN Administration Current Side Effect: No Lab tests ordered: Yes Lab tests reviewed: Yes Provider note:: Patient will complete this program on 06/06/18. She has met her treatment goals and will conrinue to address her issues in outpatient treatment at [facility] at [address] [place] [address]. She is stable for discharge on 06/06/18 Total face to face time:: 35 Mental Status Exam - Mental Status Exam Alert and Oriented to: Time, Place, Person Cognitive Function: Fair Patient Appearance: Well Groomed Mood: Hopeful, Euthymic Affect: Appropriate Patient Behavior: Cooperative Speech Pattern: Clear Voice Loudness: Normal Thought Process: Intact, Goal Oriented Thought Disorder: Not Present Hallucinations: Denies Suicidal Ideation: Denies Homicidal Ideation: Denies Insight/Judgement: Fair Sleep: Fair Appetite: Good Muscle strength/Tone: Normal Gait/Station: Normal Psychiatric Treatment Plan - Problem List (1) Alcohol dependence Current Visit: Yes (2) Nicotine dependence Current Visit: Yes (3) Hx of hepatitis C Current Visit: Yes (4) Alcoholic cirrhosis of liver with ascites Current Visit: No (5) Type 2 diabetes mellitus Current Visit: No 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
[2018-06-05] MEDS: MELATONIN 5 MG TABLETS PO PRN (21:04)
[2018-06-05] MEDS: SENNOSIDES 8.6MG TABLET (FP) PO SCH (21:04)
[2018-06-05] MEDS: THIAMINE HCL 100 MG TABLET (FP) PO SCH (21:05)
[2018-06-06] MEDS: hydrOXYzine PAMOATE 50 MG CAPSULE (FP) PO PRN ×3 (02:36→21:10)
[2018-06-06] MEDS: glipiZIDE 5 MG TABLET (FP) PO SCH (06:40)
[2018-06-06] MEDS: INSULIN SLIDING SCALE (NOVOLOG) 1 VIAL SQ SCH ×3 (06:42→17:00)
[2018-06-06] MEDS ORDERED: PT OWN MED DRAWER 7, Y5N ONE (09:10)
[2018-06-06] MEDS: SPIRONOLACTONE 25 MG TABLET (FP) PO SCH (10:16)
[2018-06-06] MEDS: POTASSIUM CHLORIDE TABS 20 MEQ TABLET.ER (FP) PO SCH (10:18)
[2018-06-06] MEDS: FUROSEMIDE 40 MG TABLET (FP) PO SCH (10:18)
[2018-06-06] MEDS: GABAPENTIN 100 MG CAPSULE (FP) PO SCH (10:18)
[2018-06-06] MEDS: PRENATAL VITAMINS W/ FOLIC ACID TABLET (FP) PO SCH (10:18)
[2018-06-06] MEDS: POLYETHYLENE GLYCOL 3350 119 GM BTL PO SCH (10:19)
[2018-06-06] MEDS: FOLIC ACID 1 MG TABLET (FP) PO SCH (10:19)
[2018-06-06] MEDS: MAGNESIUM OXIDE 400 MG TABLET (FP) PO SCH ×2 (10:21→21:11)
[2018-06-06] MEDS ORDERED: INSULIN (NOVOLOG) ASPART 100 UNITS/ML 10ML VIAL ONE ×2 (12:09→16:59)
--- NOTE | 2018-06-06 12:28 | PN ---
[facility] Progress Note Note: Called by nursing staff on behalf of patient complaining of sleeping poorly despite getting Melatonin at bedtime last time. Belsomra 10 mg po HS prn is ordered for patient
[2018-06-06] MEDS: SENNOSIDES 8.6MG TABLET (FP) PO SCH (21:10)
[2018-06-06] MEDS: MELATONIN 5 MG TABLETS PO PRN (21:10)
[2018-06-06] MEDS: THIAMINE HCL 100 MG TABLET (FP) PO SCH (21:10)
[2018-06-07] MEDS: hydrOXYzine PAMOATE 50 MG CAPSULE (FP) PO PRN ×4 (01:29→21:39)
[2018-06-07] MEDS ORDERED: PT OWN MED DRAWER 7, Y5N ONE ×3 (05:52→06:24)
[2018-06-07] MEDS ORDERED: INSULIN (NOVOLOG) ASPART 100 UNITS/ML 10ML VIAL ONE ×4 (07:05→23:27)
[2018-06-07] MEDS: glipiZIDE 5 MG TABLET (FP) PO SCH (07:14)
[2018-06-07] MEDS: INSULIN SLIDING SCALE (NOVOLOG) 1 VIAL SQ SCH ×3 (07:15→16:47)
[2018-06-07] MEDS: FOLIC ACID 1 MG TABLET (FP) PO SCH (10:21)
[2018-06-07] MEDS: FUROSEMIDE 40 MG TABLET (FP) PO SCH (10:21)
[2018-06-07] MEDS: SPIRONOLACTONE 25 MG TABLET (FP) PO SCH (10:21)
[2018-06-07] MEDS: PRENATAL VITAMINS W/ FOLIC ACID TABLET (FP) PO SCH (10:22)
[2018-06-07] MEDS: MAGNESIUM OXIDE 400 MG TABLET (FP) PO SCH ×2 (10:22→21:39)
[2018-06-07] MEDS: GABAPENTIN 100 MG CAPSULE (FP) PO SCH (10:22)
[2018-06-07] MEDS: POTASSIUM CHLORIDE TABS 20 MEQ TABLET.ER (FP) PO SCH (10:22)
[2018-06-07] MEDS: POLYETHYLENE GLYCOL 3350 119 GM BTL PO SCH (10:23)
--- NOTE | 2018-06-07 15:20 | PN ---
[facility] Progress Note Note: Laboratory Tests 06/01/18 06/02/18 06/02/18 17:22 06:32 11:45 POC Glucometer 179 129 163 06/02/18 06/03/18 06/03/18 16:49 06:39 11:52 POC Glucometer 167 177 209 06/03/18 06/04/18 06/04/18 16:40 06:29 12:06 POC Glucometer 315 137 213 06/04/18 06/05/18 06/05/18 16:50 06:37 12:00 POC Glucometer 302 166 262 06/05/18 06/06/18 06/06/18 16:45 06:40 12:06 POC Glucometer 233 138 222 06/06/18 06/07/18 06/07/18 16:58 06:21 11:44 POC Glucometer 222 216 276 Laboratory Last Values POC Glucometer 276 UNITS (80-120) 06/07/18 11:44 k+ = 4.3 on 05/31/18 plan:d/c veronica
[2018-06-07] MEDS: SENNOSIDES 8.6MG TABLET (FP) PO SCH (21:39)
[2018-06-07] MEDS: THIAMINE HCL 100 MG TABLET (FP) PO SCH (21:39)
[2018-06-07] MEDS: MELATONIN 5 MG TABLETS PO PRN (21:40)
--- NOTE | 2018-06-07 22:23 | PN ---
[facility] Progress Note Note: Psychiatry Attending's on-call note : Called to address patient's complaint of insomia. Chart reviewed. Dr Washington's treatment plan : read. Spoke to patient via telephone. Belsomra discussed. Ms Rose agrees with this plan of care. Intervention : Belsomra 10 mg po hs prn . Ordered.
[2018-06-07] MEDS: SUVOREXANT 10 MG TABLET PO PRN (23:31)
[2018-06-08] MEDS: IBUPROFEN 400 MG TABLET (FP) PO PRN ×2 (06:06→21:06)
[2018-06-08] MEDS: hydrOXYzine PAMOATE 50 MG CAPSULE (FP) PO PRN ×4 (06:06→21:05)
[2018-06-08] MEDS: glipiZIDE 5 MG TABLET (FP) PO SCH (06:07)
[2018-06-08] MEDS: INSULIN SLIDING SCALE (NOVOLOG) 1 VIAL SQ SCH ×3 (06:07→16:44)
[2018-06-08] MEDS ORDERED: PT OWN MED DRAWER 7, Y5N ONE (09:06)
[2018-06-08] MEDS: SPIRONOLACTONE 25 MG TABLET (FP) PO SCH (10:23)
[2018-06-08] MEDS: MAGNESIUM OXIDE 400 MG TABLET (FP) PO SCH ×2 (10:23→21:03)
[2018-06-08] MEDS: GABAPENTIN 100 MG CAPSULE (FP) PO SCH (10:24)
[2018-06-08] MEDS: POLYETHYLENE GLYCOL 3350 119 GM BTL PO SCH (10:24)
[2018-06-08] MEDS: FUROSEMIDE 40 MG TABLET (FP) PO SCH (10:24)
[2018-06-08] MEDS: FOLIC ACID 1 MG TABLET (FP) PO SCH (10:24)
[2018-06-08] MEDS: PRENATAL VITAMINS W/ FOLIC ACID TABLET (FP) PO SCH (10:24)
[2018-06-08] MEDS ORDERED: INSULIN (NOVOLOG) ASPART 100 UNITS/ML 10ML VIAL ONE ×2 (11:59→16:37)
[2018-06-08] MEDS: LIDOCAINE 5% TOPICAL PATCH TP SCH (12:31)
[2018-06-08] MEDS: THIAMINE HCL 100 MG TABLET (FP) PO SCH (21:03)
[2018-06-08] MEDS: SENNOSIDES 8.6MG TABLET (FP) PO SCH (21:03)
[2018-06-08] MEDS: LIDOCAINE PATCH REMOVAL MC SCH (21:03)
[2018-06-08] MEDS: SUVOREXANT 10 MG TABLET PO PRN (21:03)
[2018-06-09] MEDS: hydrOXYzine PAMOATE 50 MG CAPSULE (FP) PO PRN ×4 (02:42→21:30)
[2018-06-09] MEDS: IBUPROFEN 400 MG TABLET (FP) PO PRN ×2 (02:43→21:31)
[2018-06-09] MEDS: glipiZIDE 5 MG TABLET (FP) PO SCH (06:15)
[2018-06-09] MEDS: INSULIN SLIDING SCALE (NOVOLOG) 1 VIAL SQ SCH ×3 (07:37→16:55)
[2018-06-09] MEDS ORDERED: INSULIN (NOVOLOG) ASPART 100 UNITS/ML 10ML VIAL ONE ×4 (07:37→23:13)
[2018-06-09] MEDS: MAGNESIUM OXIDE 400 MG TABLET (FP) PO SCH ×2 (10:09→21:30)
[2018-06-09] MEDS: SPIRONOLACTONE 25 MG TABLET (FP) PO SCH (10:09)
[2018-06-09] MEDS: LIDOCAINE 5% TOPICAL PATCH TP SCH (10:09)
[2018-06-09] MEDS: FUROSEMIDE 40 MG TABLET (FP) PO SCH (10:09)
[2018-06-09] MEDS: PRENATAL VITAMINS W/ FOLIC ACID TABLET (FP) PO SCH (10:09)
[2018-06-09] MEDS: GABAPENTIN 100 MG CAPSULE (FP) PO SCH (10:09)
[2018-06-09] MEDS: FOLIC ACID 1 MG TABLET (FP) PO SCH (10:09)
[2018-06-09] MEDS: POLYETHYLENE GLYCOL 3350 119 GM BTL PO SCH (10:10)
[2018-06-09] MEDS: LIDOCAINE PATCH REMOVAL MC SCH (21:30)
[2018-06-09] MEDS: SENNOSIDES 8.6MG TABLET (FP) PO SCH (21:30)
[2018-06-09] MEDS: THIAMINE HCL 100 MG TABLET (FP) PO SCH (21:30)
[2018-06-09] MEDS: SUVOREXANT 10 MG TABLET PO PRN (21:34)
[2018-06-09] MEDS ORDERED: PT OWN MED DRAWER 7, Y5N ONE (23:11)
[2018-06-10] MEDS: hydrOXYzine PAMOATE 50 MG CAPSULE (FP) PO PRN ×3 (02:26→23:19)
[2018-06-10] MEDS: INSULIN SLIDING SCALE (NOVOLOG) 1 VIAL SQ SCH ×3 (06:22→17:10)
[2018-06-10] MEDS: glipiZIDE 5 MG TABLET (FP) PO SCH (06:22)
[2018-06-10] MEDS: FOLIC ACID 1 MG TABLET (FP) PO SCH (10:19)
[2018-06-10] MEDS: SPIRONOLACTONE 25 MG TABLET (FP) PO SCH (10:19)
[2018-06-10] MEDS: LIDOCAINE 5% TOPICAL PATCH TP SCH (10:20)
[2018-06-10] MEDS: MAGNESIUM OXIDE 400 MG TABLET (FP) PO SCH ×2 (10:20→21:42)
[2018-06-10] MEDS: FUROSEMIDE 40 MG TABLET (FP) PO SCH ×2 (10:20→15:25)
[2018-06-10] MEDS: GABAPENTIN 100 MG CAPSULE (FP) PO SCH (10:21)
[2018-06-10] MEDS: POLYETHYLENE GLYCOL 3350 119 GM BTL PO SCH (10:21)
[2018-06-10] MEDS: PRENATAL VITAMINS W/ FOLIC ACID TABLET (FP) PO SCH (10:21)
[2018-06-10] MEDS ORDERED: INSULIN (NOVOLOG) ASPART 100 UNITS/ML 10ML VIAL ONE ×2 (12:07→17:10)
--- NOTE | 2018-06-10 14:35 | PN ---
[facility] Progress Note (SOAP) Subjective: c/o feeling bloated - doesn't want water pill to be d/c. State boarder machine put on Suplena instead of because of concern for possible elevated serum ammonia. States having a BM QOD w/ difficulty pushing out. No blood w/ BM. States was on Nicotine patch prior to admission and requesting nicotine gum for cravings. Concerned about glucose levels and wants checked more frequently. Objective: A&O x 3. Lungs CTA. Abd soft, slightly distended. Measures 37.5 inches. Vital Signs - 24 hr 06/10/18 06/10/18 06/10/18 00:30 03:30 07:18 Temperature 97.7 F Pulse Rate 97 H Respiratory 16 16 16 Rate Blood Pressure 102/71 06/10/18 06/10/18 10:00 13:00 Temperature Pulse Rate 17 L 97 H Respiratory 93 H 16 Rate Blood Pressure 103/75 106/74 Labs from 05/31: Last serum ammonia level 83.20 Plan: Serum ammonia level. Increase BGM to ACHS Place parameters on Furosemide. Nicotine gum.
[2018-06-10] MEDS: NICOTINE POLACRILEX 2 MG GUM BUC PRN ×3 (15:25→21:53)
--- NOTE | 2018-06-10 16:57 | PN ---
Psychiatric Progress Note Vital Signs: Vital Signs Period Temp Pulse Resp BP Sys/Pulliam Pulse Ox Last 24 Hr 97.7 F 17 16-93 102-112/71-79 Date of Session: 06/10/18 Chief Complaint:: "I have trouble sleeping." Current Medications: Active Medications Generic Name Dose Route Start Last Admin Trade Name Freq PRN Reason Stop Dose Admin Al Hydroxide/Mg Hydroxide 30 ml 06/01/18 19:10 Mylanta Oral Suspension - PO Q6H PRN DYSPEPSIA Eucalyptus/Menthol/Phenol/Sorbitol 1 each 06/01/18 19:10 Cepastat Lozenge - MM Q4H PRN SORE THROAT Folic Acid 1 mg 06/02/18 10:00 06/10/18 10:19 Folic Acid - PO 1 mg DAILY TARAN Administration Furosemide 40 mg 06/10/18 15:05 06/10/18 15:25 Lasix - PO 40 mg DAILY TARAN Administration Gabapentin 100 mg 06/02/18 10:00 06/10/18 10:21 Neurontin - PO 100 mg DAILY TARAN Administration Glipizide 2.5 mg 06/02/18 07:00 06/10/18 06:22 Glucotrol - PO 2.5 mg DAILY@0700 TARAN Administration Guaifenesin 10 ml 06/01/18 19:10 Robitussin Dm - PO Q6H PRN COUGH Hydroxyzine Pamoate 50 mg 06/02/18 12:39 06/10/18 10:21 Vistaril - PO 50 mg Q4H PRN Administration ANXIETY Ibuprofen 400 mg 06/01/18 19:10 06/09/18 21:31 Motrin - PO 400 mg Q6H PRN Administration Pain level 4-6 Insulin Aspart 1 vial 06/01/18 19:15 06/10/18 11:47 Novolog Vial Sliding Scale - SQ 6 units TIDAC TARAN Administration Protocol Lidocaine 1 patch 06/08/18 12:00 06/10/18 10:20 Lidoderm Patch - TP 1 patch DAILY TARAN Administration Loperamide HCl 4 mg 06/01/18 19:10 06/04/18 02:06 Imodium - PO 4 mg Q6H PRN Administration DIARRHEA Magnesium Citrate 300 ml 06/01/18 19:10 Citroma - PO Q48H PRN CONSTIPATION Magnesium Hydroxide 30 ml 06/01/18 19:10 Milk Of Magnesia - PO DAILY PRN CONSTIPATION Magnesium Oxide 400 mg 06/01/18 22:00 06/10/18 10:20 Mag-Ox - PO 400 mg BID TARAN Administration Miscellaneous 1 each 06/08/18 22:00 06/09/18 21:30 Lidoderm Patch Removal MC 1 each DAILY@2200 TARAN Administration Nicotine Polacrilex 2 mg 06/10/18 14:43 06/10/18 15:25 Nicorette Gum - BUC 2 mg Q2H PRN Administration NICOTINE REPLACEMENT RX Polyethylene Glycol 17 gm 06/02/18 10:00 06/10/18 10:21 Miralax (For Daily Use) - PO 17 gm DAILY TARAN Administration Multivit/Folic Acid/Iron 1 tab 06/02/18 10:00 06/10/18 10:21 Vitamins (Sjr) - PO 1 tab DAILY TARAN Administration Pseudoephedrine/Triprolidine 1 combo 06/01/18 19:10 Actifed - PO TID PRN NASAL CONGESTION Senna 1 tab 06/02/18 22:00 06/09/18 21:30 Senna - PO 1 tab HS TARAN Administration Spironolactone 100 mg 06/02/18 10:00 06/10/18 10:19 Aldactone - PO Not Given DAILY TARAN Suvorexant 10 mg 06/07/18 22:18 06/09/18 21:34 Belsomra PO 10 mg HS PRN Administration INSOMNIA Thiamine HCl 100 mg 06/01/18 22:00 06/09/18 21:30 Vitamin B1 - PO 100 mg HS TARAN Administration Medication(s) Change(s): Yes. Will add Melatonin 5mg qhs prn. Current Side Effect: No Lab tests ordered: No Lab tests reviewed: Yes Provider note:: Patient reports poor sleep. Reports sleeping well when taking belsomra 10mg + Melatonin 5mg. Melatonin 5mg has been discontinued although no note was written as to why. Will reorder Melatonin 5mg for insomnia. Verbal consent given. Psychoeducation and sleep hygiene discussed. Verbal consent given. Total face to face time:: 25 Mental Status Exam - Mental Status Exam Alert and Oriented to: Time, Place, Person Cognitive Function: Good Patient Appearance: Well Groomed Mood: Hopeful Affect: Appropriate Patient Behavior: Appropriate, Cooperative Speech Pattern: Clear, Appropriate Voice Loudness: Normal Thought Process: Intact, Goal Oriented Thought Disorder: Not Present Hallucinations: Denies Suicidal Ideation: Denies Homicidal Ideation: Denies Insight/Judgement: Poor Sleep: Poorly Appetite: Fair Muscle strength/Tone: Normal Gait/Station: Normal Psychiatric Treatment Plan - Problem List (1) Insomnia Current Visit: Yes (2) Alcohol dependence Current Visit: Yes
[2018-06-10] MEDS: THIAMINE HCL 100 MG TABLET (FP) PO SCH (21:42)
[2018-06-10] MEDS: SENNOSIDES 8.6MG TABLET (FP) PO SCH (21:43)
[2018-06-10] MEDS: LIDOCAINE PATCH REMOVAL MC SCH (21:44)
[2018-06-10] MEDS: IBUPROFEN 400 MG TABLET (FP) PO PRN (22:09)
[2018-06-10] MEDS: MELATONIN 5 MG TABLETS PO PRN (23:18)
[2018-06-11] MEDS: hydrOXYzine PAMOATE 50 MG CAPSULE (FP) PO PRN ×3 (04:08→19:15)
[2018-06-11] MEDS: NICOTINE POLACRILEX 2 MG GUM BUC PRN ×3 (04:09→12:58)
[2018-06-11] MEDS: glipiZIDE 5 MG TABLET (FP) PO SCH (06:17)
[2018-06-11] MEDS: INSULIN SLIDING SCALE (NOVOLOG) 1 VIAL SQ SCH ×3 (06:18→17:02)
[2018-06-11] MEDS: MAGNESIUM OXIDE 400 MG TABLET (FP) PO SCH ×2 (10:12→21:25)
[2018-06-11] MEDS: PRENATAL VITAMINS W/ FOLIC ACID TABLET (FP) PO SCH (10:12)
[2018-06-11] MEDS: FOLIC ACID 1 MG TABLET (FP) PO SCH (10:12)
[2018-06-11] MEDS: LIDOCAINE 5% TOPICAL PATCH TP SCH (10:12)
[2018-06-11] MEDS: FUROSEMIDE 40 MG TABLET (FP) PO SCH (10:12)
[2018-06-11] MEDS: GABAPENTIN 100 MG CAPSULE (FP) PO SCH (10:12)
[2018-06-11] MEDS: SPIRONOLACTONE 25 MG TABLET (FP) PO SCH (10:12)
[2018-06-11] MEDS: POLYETHYLENE GLYCOL 3350 119 GM BTL PO SCH (10:13)
[2018-06-11] MEDS ORDERED: INSULIN (NOVOLOG) ASPART 100 UNITS/ML 10ML VIAL ONE ×2 (11:57→16:51)
--- NOTE | 2018-06-11 13:18 | PN ---
S Progress Note Note: ammonia level is 102.10,will give lactulose 2o grams(30 mls) po tid,clos monitoring,d/c tylenol,repeat ammonia level on wed06/13/18
[2018-06-11] MEDS: LACTULOSE 20 GM/30 ML UDC (FOR ORAL USE ONLY) PO SCH ×2 (14:07→21:24)
[2018-06-11] MEDS: SENNOSIDES 8.6MG TABLET (FP) PO SCH (21:25)
[2018-06-11] MEDS: SUVOREXANT 10 MG TABLET PO PRN (21:25)
[2018-06-11] MEDS: LIDOCAINE PATCH REMOVAL MC SCH (21:25)
[2018-06-11] MEDS: THIAMINE HCL 100 MG TABLET (FP) PO SCH (21:25)
[2018-06-11] MEDS: MELATONIN 5 MG TABLETS PO PRN (21:26)
[2018-06-11] MEDS: IBUPROFEN 400 MG TABLET (FP) PO PRN (21:27)
[2018-06-12] MEDS: hydrOXYzine PAMOATE 50 MG CAPSULE (FP) PO PRN ×4 (00:45→22:00)
[2018-06-12] MEDS: NICOTINE POLACRILEX 2 MG GUM BUC PRN ×4 (00:45→16:47)
[2018-06-12] MEDS: glipiZIDE 5 MG TABLET (FP) PO SCH (06:14)
[2018-06-12] MEDS: IBUPROFEN 400 MG TABLET (FP) PO PRN ×2 (06:15→22:00)
[2018-06-12] MEDS: LACTULOSE 20 GM/30 ML UDC (FOR ORAL USE ONLY) PO SCH ×3 (06:16→21:58)
[2018-06-12] MEDS: INSULIN SLIDING SCALE (NOVOLOG) 1 VIAL SQ SCH ×3 (06:17→16:42)
[2018-06-12] MEDS: PRENATAL VITAMINS W/ FOLIC ACID TABLET (FP) PO SCH (10:20)
[2018-06-12] MEDS: FOLIC ACID 1 MG TABLET (FP) PO SCH (10:20)
[2018-06-12] MEDS: SPIRONOLACTONE 25 MG TABLET (FP) PO SCH (10:20)
[2018-06-12] MEDS: FUROSEMIDE 40 MG TABLET (FP) PO SCH (10:20)
[2018-06-12] MEDS: LIDOCAINE 5% TOPICAL PATCH TP SCH (10:20)
[2018-06-12] MEDS: POLYETHYLENE GLYCOL 3350 119 GM BTL PO SCH (10:21)
[2018-06-12] MEDS: MAGNESIUM OXIDE 400 MG TABLET (FP) PO SCH ×2 (10:21→21:58)
[2018-06-12] MEDS: GABAPENTIN 100 MG CAPSULE (FP) PO SCH (10:21)
[2018-06-12] MEDS ORDERED: INSULIN (NOVOLOG) ASPART 100 UNITS/ML 10ML VIAL ONE ×2 (12:13→16:42)
[2018-06-12] MEDS: SUVOREXANT 10 MG TABLET PO PRN (21:58)
[2018-06-12] MEDS: MELATONIN 5 MG TABLETS PO PRN (21:58)
[2018-06-12] MEDS: THIAMINE HCL 100 MG TABLET (FP) PO SCH (21:58)
[2018-06-12] MEDS: SENNOSIDES 8.6MG TABLET (FP) PO SCH (21:58)
[2018-06-12] MEDS: LIDOCAINE PATCH REMOVAL MC SCH (21:59)
[2018-06-13] MEDS ORDERED: INSULIN (NOVOLOG) ASPART 100 UNITS/ML 10ML VIAL ONE ×5 (00:33→23:30)
[2018-06-13] MEDS: hydrOXYzine PAMOATE 50 MG CAPSULE (FP) PO PRN ×3 (06:28→23:28)
[2018-06-13] MEDS: glipiZIDE 5 MG TABLET (FP) PO SCH (06:28)
[2018-06-13] MEDS: LACTULOSE 20 GM/30 ML UDC (FOR ORAL USE ONLY) PO SCH ×3 (06:29→21:50)
[2018-06-13] MEDS: INSULIN SLIDING SCALE (NOVOLOG) 1 VIAL SQ SCH ×3 (07:09→16:47)
[2018-06-13] MEDS ORDERED: PT OWN MED DRAWER 7, Y5N ONE (07:10)
[2018-06-13] MEDS: LIDOCAINE 5% TOPICAL PATCH TP SCH (10:07)
[2018-06-13] MEDS: FOLIC ACID 1 MG TABLET (FP) PO SCH (10:08)
[2018-06-13] MEDS: PRENATAL VITAMINS W/ FOLIC ACID TABLET (FP) PO SCH (10:08)
[2018-06-13] MEDS: MAGNESIUM OXIDE 400 MG TABLET (FP) PO SCH ×2 (10:08→21:50)
[2018-06-13] MEDS: GABAPENTIN 100 MG CAPSULE (FP) PO SCH (10:08)
[2018-06-13] MEDS: FUROSEMIDE 40 MG TABLET (FP) PO SCH (10:08)
[2018-06-13] MEDS: POLYETHYLENE GLYCOL 3350 119 GM BTL PO SCH (10:10)
[2018-06-13] MEDS: IBUPROFEN 400 MG TABLET (FP) PO PRN ×2 (10:11→21:52)
[2018-06-13] MEDS: NICOTINE POLACRILEX 2 MG GUM BUC PRN ×3 (10:14→23:29)
[2018-06-13] MEDS: SPIRONOLACTONE 25 MG TABLET (FP) PO SCH (10:55)
[2018-06-13] MEDS: SENNOSIDES 8.6MG TABLET (FP) PO SCH (21:50)
[2018-06-13] MEDS: SUVOREXANT 10 MG TABLET PO PRN (21:50)
[2018-06-13] MEDS: THIAMINE HCL 100 MG TABLET (FP) PO SCH (21:50)
[2018-06-13] MEDS: MELATONIN 5 MG TABLETS PO PRN (21:51)
[2018-06-13] MEDS: LIDOCAINE PATCH REMOVAL MC SCH (21:51)
[2018-06-14] MEDS ORDERED: PT OWN MED DRAWER 7, Y5N ONE (03:21)
[2018-06-14] MEDS: INSULIN SLIDING SCALE (NOVOLOG) 1 VIAL SQ SCH ×3 (06:25→16:41)
[2018-06-14] MEDS: hydrOXYzine PAMOATE 50 MG CAPSULE (FP) PO PRN ×3 (06:26→22:09)
[2018-06-14] MEDS: NICOTINE POLACRILEX 2 MG GUM BUC PRN ×4 (06:26→22:09)
[2018-06-14] MEDS: glipiZIDE 5 MG TABLET (FP) PO SCH (06:26)
[2018-06-14] MEDS: LACTULOSE 20 GM/30 ML UDC (FOR ORAL USE ONLY) PO SCH ×3 (06:26→21:27)
[2018-06-14] MEDS: LIDOCAINE 5% TOPICAL PATCH TP SCH (10:12)
[2018-06-14] MEDS: GABAPENTIN 100 MG CAPSULE (FP) PO SCH (10:13)
[2018-06-14] MEDS: MAGNESIUM OXIDE 400 MG TABLET (FP) PO SCH ×2 (10:13→21:27)
[2018-06-14] MEDS: PRENATAL VITAMINS W/ FOLIC ACID TABLET (FP) PO SCH (10:13)
[2018-06-14] MEDS: FOLIC ACID 1 MG TABLET (FP) PO SCH (10:13)
[2018-06-14] MEDS: FUROSEMIDE 40 MG TABLET (FP) PO SCH (10:14)
[2018-06-14] MEDS: POLYETHYLENE GLYCOL 3350 119 GM BTL PO SCH (10:14)
[2018-06-14] MEDS: SPIRONOLACTONE 25 MG TABLET (FP) PO SCH (10:14)
[2018-06-14] MEDS: IBUPROFEN 400 MG TABLET (FP) PO PRN ×2 (10:16→21:28)
[2018-06-14] MEDS ORDERED: INSULIN (NOVOLOG) ASPART 100 UNITS/ML 10ML VIAL ONE ×2 (12:01→16:35)
--- NOTE | 2018-06-14 15:30 | PN ---
Psychiatric Progress Note Vital Signs: Vital Signs Period Temp Pulse Resp BP Sys/Pulliam Pulse Ox Last 24 Hr 98.2 F 87-93 -18 103-105/71-73 Date of Session: 06/15/18 Chief Complaint:: "Discharge" HPI: Patient was admitted to for alcohol dependence. ROS: Liver cirrhosis, DM, Hep C. Current Medications: Active Medications Generic Name Dose Route Start Last Admin Trade Name Freq PRN Reason Stop Dose Admin Al Hydroxide/Mg Hydroxide 30 ml 06/01/18 19:10 Mylanta Oral Suspension - PO Q6H PRN DYSPEPSIA Eucalyptus/Menthol/Phenol/Sorbitol 1 each 06/01/18 19:10 Cepastat Lozenge - MM Q4H PRN SORE THROAT Folic Acid 1 mg 06/02/18 10:00 06/14/18 10:13 Folic Acid - PO 1 mg DAILY TARAN Administration Furosemide 40 mg 06/10/18 15:05 06/14/18 10:14 Lasix - PO Not Given DAILY TARAN Gabapentin 100 mg 06/02/18 10:00 06/14/18 10:13 Neurontin - PO 100 mg DAILY TARAN Administration Glipizide 2.5 mg 06/02/18 07:00 06/14/18 06:26 Glucotrol - PO 2.5 mg DAILY@0700 TARAN Administration Guaifenesin 10 ml 06/01/18 19:10 Robitussin Dm - PO Q6H PRN COUGH Hydroxyzine Pamoate 50 mg 06/02/18 12:39 06/14/18 14:18 Vistaril - PO 50 mg Q4H PRN Administration ANXIETY Ibuprofen 400 mg 06/01/18 19:10 06/14/18 10:16 Motrin - PO 400 mg Q6H PRN Administration Pain level 4-6 Insulin Aspart 1 vial 06/01/18 19:15 06/14/18 12:00 Novolog Vial Sliding Scale - SQ 2 units TIDAC TARAN Administration Protocol Lactulose 20 gm 06/11/18 14:00 06/14/18 14:17 Cephulac (Oral Use) PO 20 gm TID TARAN Administration Lidocaine 1 patch 06/08/18 12:00 06/14/18 10:12 Lidoderm Patch - TP 1 patch DAILY TARAN Administration Loperamide HCl 4 mg 06/01/18 19:10 06/04/18 02:06 Imodium - PO 4 mg Q6H PRN Administration DIARRHEA Magnesium Citrate 300 ml 06/01/18 19:10 Citroma - PO Q48H PRN CONSTIPATION Magnesium Hydroxide 30 ml 06/01/18 19:10 Milk Of Magnesia - PO DAILY PRN CONSTIPATION Magnesium Oxide 400 mg 06/01/18 22:00 06/14/18 10:13 Mag-Ox - PO 400 mg BID TARAN Administration Melatonin 5 mg 06/10/18 22:00 06/13/18 21:51 Melatonin PO 5 mg HS PRN Administration INSOMNIA Miscellaneous 1 each 06/08/18 22:00 06/13/18 21:51 Lidoderm Patch Removal MC 1 each DAILY@2200 TARAN Administration Nicotine Polacrilex 2 mg 06/10/18 14:43 06/14/18 14:19 Nicorette Gum - BUC 2 mg Q2H PRN Administration NICOTINE REPLACEMENT RX Polyethylene Glycol 17 gm 06/02/18 10:00 06/14/18 10:14 Miralax (For Daily Use) - PO Not Given DAILY TARAN Multivit/Folic Acid/Iron 1 tab 06/02/18 10:00 06/14/18 10:13 Vitamins (Sjr) - PO 1 tab DAILY TARAN Administration Pseudoephedrine/Triprolidine 1 combo 06/01/18 19:10 Actifed - PO TID PRN NASAL CONGESTION Senna 1 tab 06/02/18 22:00 06/13/18 21:50 Senna - PO 1 tab HS TARAN Administration Spironolactone 100 mg 06/02/18 10:00 06/14/18 10:14 Aldactone - PO Not Given DAILY TARAN Thiamine HCl 100 mg 06/01/18 22:00 06/13/18 21:50 Vitamin B1 - PO 100 mg HS TARAN Administration Medication(s) Change(s): No. Current Side Effect: No Lab tests ordered: No Lab tests reviewed: Yes Provider note:: Patient will complete the rehabilitation program on 06/15/18. Patient has met her treatment goals and will continue to address her issues at [facility]. States being in rehab "opened her eyes to realizing that she was suppressing things and plans on seeing a counselor after discharge to address my issues." Overall she reports a productive stay with a positive outcome. A 30 day prescription of vistaril 50mg q6h for anxiety will be electronically sent to [facility]/pharmacy #[id number], [address] [phone]. Patient is stable for discharge on 06/15/18. Total face to face time:: 35 Mental Status Exam - Mental Status Exam Alert and Oriented to: Time, Place, Person Cognitive Function: Good Patient Appearance: Well Groomed Mood: Hopeful Affect: Appropriate Patient Behavior: Appropriate, Cooperative Speech Pattern: Clear, Appropriate Voice Loudness: Normal Thought Process: Intact, Goal Oriented Thought Disorder: Not Present Hallucinations: Denies Suicidal Ideation: Denies Homicidal Ideation: Denies Insight/Judgement: Good Sleep: Well Appetite: Good Muscle strength/Tone: Normal Gait/Station: Normal Psychiatric Treatment Plan - Problem List (1) Insomnia Current Visit: Yes (2) Alcohol dependence Current Visit: Yes
--- NOTE | 2018-06-14 21:07 | PN ---
S Progress Note Note: Psychiatric nurse practitioner note: Call received by RN stating patient will be picked up by a taxi at 7:30am. Discharge order time changed to 07:15.
[2018-06-14] MEDS: THIAMINE HCL 100 MG TABLET (FP) PO SCH (21:27)
[2018-06-14] MEDS: SENNOSIDES 8.6MG TABLET (FP) PO SCH (21:27)
[2018-06-14] MEDS: LIDOCAINE PATCH REMOVAL MC SCH (21:27)
[2018-06-14] MEDS: MELATONIN 5 MG TABLETS PO PRN (21:30)
[2018-06-14] MEDS ORDERED: SUVOREXANT 10 MG TABLET PO PRN (22:00)
[2018-06-15] MEDS: hydrOXYzine PAMOATE 50 MG CAPSULE (FP) PO PRN (03:14)
[2018-06-15] MEDS: NICOTINE POLACRILEX 2 MG GUM BUC PRN ×2 (03:15→07:08)
[2018-06-15] MEDS: IBUPROFEN 400 MG TABLET (FP) PO PRN (06:12)
[2018-06-15] MEDS: glipiZIDE 5 MG TABLET (FP) PO SCH (06:12)
[2018-06-15] MEDS: LACTULOSE 20 GM/30 ML UDC (FOR ORAL USE ONLY) PO SCH (06:13)
[2018-06-15] MEDS: INSULIN SLIDING SCALE (NOVOLOG) 1 VIAL SQ SCH (06:13)
[2018-06-15 06:56] VITALS: BP 101/71; PULSE 100; TEMP 97.9
[2018-06-15] MEDS ORDERED: PT OWN MED DRAWER 7, Y5N ONE (07:07)
--- NOTE | 2018-06-15 23:31 | PN ---
S Progress Note Note: Pt was discharged today.Follo up with aftercare at [facility].
== END 2018-06-15 07:16 | disposition home or self-care (01) | DRG 772 ==
LOC: YASAS 15:16 → Y3E 17:38
PROVIDERS: ADMIT Psychiatry & Neurology Psychiatry; ATTEND Psychiatry & Neurology Psychiatry
PROC: HZ42ZZZ Group Counseling for Substance Abuse Treatment, Cognitive-Behavioral (ICD-10-PCS; principal; 2018-06-01)
DX: F10.20 Alcohol dependence, uncomplicated (principal); G47.00 Insomnia, unspecified; K74.60 Unspecified cirrhosis of liver; E11.9 Type 2 diabetes mellitus without complications; B18.2 Chronic viral hepatitis C; E72.20 Disorder of urea cycle metabolism, unspecified; E87.6 Hypokalemia; Z87.891 Personal history of nicotine dependence
CPT/HCPCS: 82140; 82962

== ENCOUNTER 2018-08-27 23:59 | Inpatient (IN) | payer OTHER ==
--- NOTE | 2018-08-28 00:09 | HP ---
CIWA Score Nausea/Vomitin-No Nausea/No Vomiting Muscle Tremors: 4-Moderate,w/Arms Extend Anxiety: 4-Mod. Anxious/Guarded Agitation: 4-Moderately Restless Paroxysmal Sweats: 3 Orientation: 2-Disoriented Date<2 days Tacttile Disturbances: 2-Mild Itch/Numbness/Burn Auditory Disturbances: 0-None Visual Disturbances: 1-Very Mild Sensitivity Headache: 0-None Present CIWA-Ar Total Score: 20 - Admission Criteria OASAS Guidelines: Admission for Medically Managed Detox: Requires at least one of the followin. CIWA greater than 12 2. Seizures within the past 24 hours 3. Delirium tremens within the past 24 hours 4. Hallucinations within the past 24 hours 5. Acute intervention needed for co occurring medical disorder 6. Acute intervention needed for co occurring psychiatric disorder 7. Severe withdrawal that cannot be handled at a lower level of care (continued vomiting, continued diarrhea, abnormal vital signs) requiring intravenous medication and/or fluids 8. Patient presents the following: Acute intervention needed for co-occurring med or psych disorder Admission Criteria Met: Admission criteria met Admission ROS [facility] Chief Complaint: C/O WORSENING WITHDRAWAL SX'S. SEEKING DETOX TXMENT Allergies/Adverse Reactions: Allergies Allergy/AdvReac Type Severity Reaction Status Date / Time No Known Drug Allergies Allergy Verified 06/10/18 17:21 naltrexone AdvReac Verified 06/01/18 17:08 History of Present Illness: 43 Y.O. FEMALE WITH ALCOHOLISM KNOWN TO THIS PROGRAM PRESENTS FOR DETOX TXMENT WITH C/O WORSENING WITHDRAWAL SX'S. CIWA 20. LAST ADMISSION 05/2018. SHE IS SELF REFERRED. REPORTS DRINKING 1/2 PINT DAILY. LAST DRANK EARLY DAY OF 2018. REPORTS LONGEST CLEAN TIME 6 MONTHS RELAPSING 2 MONTHS AGO. PMHX DM, AND FX OF LEFT SHOULDER 1 WEEK AGO 2/2 TO FALL NOW WITH A SLING, CIRROHISI OF LIVER , ASCITES, INCREASED AMMONIA LEVELS. UTOX + BENZO. DENIES HX/O SEIZURES, BLACK OUTS, AVH, SI/HI. CURRENTLY LIVES WITH FAMILY, UNEMPLOYED, DENIES LEGALS Exam Limitations: Physical Impairment (LEFT ARM IN A SLING 2/2 TO R SHOULDER FX ) - Ebola screening Have you traveled outside of the country in the last 21 days: No Have you had contact with anyone from an Ebola affected area: No Have you been sick,other than usual withdrawal symptoms: No Do you have a fever: No - Review of Systems Constitutional: Chills, Loss of Appetite, Malaise, Night Sweats, Changes in sleep, Unintentional Wgt. Loss EENT: reports: No Symptoms Reported Respiratory: reports: Shortness of Breath Cardiac: reports: No Symptoms Reported GI: reports: Poor Appetite, Poor Fluid Intake : reports: Other (HESITANCY) Musculoskeletal: reports: Back Pain, Joint Pain Integumentary: reports: Dryness Neuro: reports: Tremors (R/T WITHDRAWAL SX'S) Endocrine: reports: Other (HX/O DM) Hematology: reports: No Symptoms Reported Psychiatric: reports: Orientated x3, Anxious, Depressed Other Systems: Reviewed and Negative Patient History - Patient Medical History Hx Anemia: No Hx Asthma: No Hx Chronic Obstructive Pulmonary Disease (COPD): No Hx Cancer: No Hx Cardiac Disorders: No Hx Congestive Heart Failure: No Hx Hypertension: No Hx Hypercholesterolemia: No Hx Pacemaker: No HX Cerebrovascular Accident: No Hx Seizures: No Hx Dementia: No Hx Diabetes: Yes Hx Gastrointestinal Disorders: No Hx Liver Disease: Yes (fatty liver) Hx Genitourinary Disorders: No Hx Sexually Transmitted Disorders: No Hx Renal Disease (ESRD): No Hx Thyroid Disease: No Hx Human Immunodeficiency Virus (HIV): No Hx Hepatitis C: No Hx Depression: No Hx Suicide Attempt: No Hx Bipolar Disorder: No Hx Schizophrenia: No - Patient Surgical History Past Surgical History: Yes Hx Cholecystectomy: Yes ([facility] 2013 [facility]) Anesthesia Reaction: No - PPD History Previous Implant?: Yes Documented Results: Negative w/proof Implanted On Prior [facility] Admission?: No Date: 06/04/18 Results: 0MM PPD to be Administered?: No - Reproductive History Patient is a Female of Child Bearing Age (11 -55 yrs old): Yes Last Menstrual Period: 03/19/18 LMP comment: IRREG Patient : [place] [facility] - Smoking Cessation Smoking history: Current every day smoker Have you smoked in the past 12 months: Yes Aproximately how many cigarettes per day: 2 Cigars Per Day: 0 Hx Chewing Tobacco Use: No Initiated information on smoking cessation: Yes 'Breaking Loose' booklet given: 08/28/18 - Substance & Tx. History Hx Alcohol Use: Yes Hx Substance Use: Yes Substance Use Type: Alcohol Hx Substance Use Treatment: Yes ([facility]) - Substances Abused VODKA Route: Oral Frequency: Daily Amount used: 1/2 PINT Age of first use: 29 Date of Last Use: 08/27/18 Family Disease History - Family Disease History Family Disease History: Other: Father (muscular dystropy, heroin addict), Mother (heroin addict), Sister (muscular dysptrophy) Admission Physical Exam [facility] - Physical General Appearance: Yes: Appropriately Dressed, Moderate Distress, Thin, Tremorous, Sweating (CHILLS/ PILORECTION), Other (CRYING /EMOTIONAL) HEENTM: Yes: EOMI, Normocephalic, Normal Voice, THOMAS, Pharynx Normal, Other ( DRY MUCUS MEMBRANES) Respiratory: Yes: Chest Non-Tender, Lungs Clear, Normal Breath Sounds, No Respiratory Distress, No Accessory Muscle Use Neck: Yes: No masses,lesions,Nodules, Supple, Trachea in good position Breast: Yes: Breast Exam Deferred Cardiology: Yes: Regular Rhythm, S1, S2, Tachycardia Abdominal: Yes: Normal Bowel Sounds, Non Tender, Soft Genitourinary: Yes: Hesitency (C/O) Back: Yes: Normal Inspection Musculoskeletal: Yes: Other (UNSTEADY GAIT) Extremities: Yes: Tremors, Other (REPORTED LEFT SHOULDER FX. LEFT ARM IN SLING. LIMITED ROM DUE TO PAIN. FINGER AND WRIST WITH GOOD ROM. 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 (6) Nicotine dependence Current Visit: No Status: Chronic Qualifiers: Nicotine product type: cigarettes Substance use status: uncomplicated Qualified Code(s): F17.210 - Nicotine dependence, cigarettes, uncomplicated (7) Use of cane as ambulatory aid Current Visit: Yes Status: Chronic (8) Type 2 diabetes mellitus Current Visit: Yes Status: Chronic Qualifiers: Diabetes mellitus plug shaper 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 insulin use: without plug shaper hand use Diabetes mellitus complication status: with unspecified complications Qualified Code(s) : E11.8 - Type 2 diabetes mellitus with unspecified complications (9) Frequent falls Current Visit: Yes Status: Chronic Comment: S/P FALL WITH FX OF LEFT SHOULDER 1 WEEK AGO (10) Insomnia Current Visit: Yes Status: Acute Qualifiers: Insomnia type: alcohol-induced Qualified Code(s): F10.982 - Alcohol use, unspecified with alcohol-induced sleep disorder (11) Fatty liver Current Visit: Yes Status: Chronic (12) Increased ammonia level Current Visit: Yes Status: Chronic (13) Shoulder fracture, left Current Visit: Yes Status: Acute Qualifiers: Encounter type: subsequent encounter Comment: LEFT SHOULDER PAIN WITH REPORTED FX 1 WEEK AGO. CLIENT HAS ON A SLING (14) Alcoholic cirrhosis of liver with ascites Current Visit: Yes Status: Chronic Cleared for Admission S - Detox or Rehab [facility] Level of Care: Medically Managed Detox Regimen/Protocol: Librium Claeared for Rehab Admission: No S Breath Alcohol Content Breath Alcohol Content: 0 (was inpt at [facility]) Inpatient Rehab Admission - Rehab Decision to Admit Inpatient rehab admission?: No
[2018-08-28 00:13] VITALS: BMI 20.9
[2018-08-28] MEDS ORDERED: guaiFENesin/D-METHORPHAN HB 10 ML UNIT-DOSE CUPS PO PRN (00:31)
[2018-08-28] MEDS ORDERED: P-EPHED 60MG/TRIPROLIDI 2.5MG TABLET PO PRN (00:31)
[2018-08-28] MEDS ORDERED: chlordiazePOXIDE HCL 25 MG CAPSULE PO PRN (00:31)
[2018-08-28] MEDS ORDERED: IBUPROFEN 400 MG TABLET (FP) PO PRN ×2 (00:31→09:50)
[2018-08-28] MEDS ORDERED: MENTHOL/PHENOL 1 EACH UD MM PRN (00:31)
[2018-08-28] MEDS ORDERED: LOPERAMIDE HCL 2 MG CAPSULE PO PRN (00:31)
[2018-08-28] MEDS ORDERED: MAG HYDROX/AL HYDROX/SIMETH 30 ML UNIT-DOSE CUP PO PRN (00:31)
[2018-08-28] MEDS ORDERED: MAGNESIUM HYDROX 2400MG/30ML ORAL SUSPENSION 30 ML CUP PO PRN (00:31)
[2018-08-28] MEDS ORDERED: ACETAMINOPHEN 325 MG TABLET (FP) PO PRN (00:31)
[2018-08-28] MEDS ORDERED: MAGNESIUM CITRATE 300 ML BOTTLE PO PRN (00:31)
[2018-08-28] MEDS ORDERED: chlordiazePOXIDE HCL 25 MG CAPSULE PO ONE (00:44)
[2018-08-28] MEDS: hydrOXYzine PAMOATE 50 MG CAPSULE (FP) PO PRN ×4 (03:45→22:24)
[2018-08-28] MEDS ORDERED: chlordiazePOXIDE HCL 25 MG CAPSULE PO SCH (05:00)
[2018-08-28] MEDS: GABAPENTIN 100 MG CAPSULE (FP) PO SCH ×3 (06:28→22:23)
[2018-08-28] MEDS: glipiZIDE 5 MG TABLET (FP) PO SCH (07:22)
[2018-08-28] MEDS: PRENATAL VITAMINS W/ FOLIC ACID TABLET (FP) PO SCH (09:44)
[2018-08-28] MEDS: LACTULOSE 20 GM/30 ML UDC (FOR ORAL USE ONLY) PO SCH ×2 (09:45→22:23)
--- NOTE | 2018-08-28 09:57 | PN ---
S CIWA - CIWA Score Nausea/Vomitin-Mild Nausea/No Vomiting Muscle Tremors: 3 Anxiety: 4-Mod. Anxious/Guarded Agitation: 3 Paroxysmal Sweats: 1-Minimal Palms Moist Orientation: 1-Uncertain about Date Tacttile Disturbances: 0-None Auditory Disturbances: 1-Very Mild Visual Disturbances: 0-None Headache: 2-Mild CIWA-Ar Total Score: 16 [facility] Progress Note (SOAP) Subjective: left shoulder fx 1-2 weeks ago, treated at ER, discharged with shoulder sling left hand fingers warm pink brisk capillary refilled fingers and wrists and elbow full range slow motion tremor sweating restlessness anxiety reported history of cirrhosis of the liver change librium to ativan regimen Objective: 08/28/18 09:56 Vital Signs Temperature 98.9 F 08/28/18 09:34 Pulse Rate 116 H 08/28/18 09:34 Respiratory Rate 18 08/28/18 09:34 Blood Pressure 117/79 08/28/18 09:34 O2 Sat by Pulse Oximetry (%) Laboratory Last Values POC Glucometer 387 UNITS (80-120) 08/28/18 06:23 lab pending Assessment: 08/28/18 10:26 alcohol withdrawal sx history of fatty liver today the patient reported has liver cirrhosis of the liver with ammonia serum level elevation discontinue librium begin ativan regimen 08/28/18 10:29 diabetes Plan: continue detox continue bgm monitoring with insulin coverage patient dose not need insulin regularly due to left shoulder fx biophysical insult may require insulin coverage as recent bgm 300-400 a1c pending
[2018-08-28 10:21] LABS: HEMATOCRIT 28.8 % (32.4-45.2); HEMOGLOBIN 9.9 GM/dL (10.7-15.3); MCH 31.2 pg (25.7-33.7); MCHC 34.4 g/dl (32.0-36.0); MEAN CELL VOLUME 90.7 fl (80-96); MEAN PLT VOLUME 7.8 fl (7.5-11.1); PLATELET COUNT 372 K/MM3 (134-434); RBC 3.17 M/mm3 (3.60-5.2); RDW 16.7 % (11.6-15.6); WHITE BLOOD COUNT 7.3 K/mm3 (4.0-10.0)
--- NOTE | 2018-08-28 10:23 | CONSULT ---
[facility] Psychiatric Consult - Data Date of interview: 08/28/18 Admission source: Self-referred Identifying data: Ms Rose is a 43 years old single Black female, mother of a 14 years old daughter, unemployed with no source of income, living with his parents seeking detox treatment for alcohol Substance Abuse History: Reports history of alcohol use. She started drinking alcohol at age 29, consumes half a pint of vodka daily. Last drank on 08/27/18. Refer to addiction counselor's summary for further information Medical History: Significant for type 2 diabetes mellitus, diabetic neuropathy, cirrhosis of the liverand history of surgeries(lap cholecystectomy in 2013, c- section in 2002). Smokes 2 cigarettes daily Psychiatric History: Denies history of previous psychiatric treament. However reports feeling depressed and sleeing poorly. Depression stemmed from physical pain from shoulder injury and life circumstances Physical/Sexual Abuse/Trauma History: Denies history of emotional, physical or sexual abuse as well as DV relationship. No Additional Comment: Reports history of one previous arrest on charges of marijuana possession Mental Status Exam - Mental Status Exam Alert and Oriented to: Time, Place, Person Cognitive Function: Fair Patient Appearance: Well Groomed Mood: Depressed Affect: Appropriate Speech Pattern: Clear Voice Loudness: Normal Thought Process: Intact, Goal Oriented Hallucinations: Denies Suicidal Ideation: Denies Homicidal Ideation: Denies Insight/Judgement: Poor Sleep: Poorly Appetite: Poor Muscle strength/Tone: Normal Gait/Station: Normal Psychiatric Findings - Problem List ([place] 1, 2,3) (1) Alcohol-induced mood disorder Current Visit: Yes Status: Acute (2) Alcohol-induced sleep disorder Current Visit: Yes Status: Acute (3) Alcohol dependence with uncomplicated withdrawal Current Visit: Yes Status: Acute (4) Nicotine dependence Current Visit: Yes Status: Chronic (5) Shoulder fracture, left Current Visit: Yes Status: Acute Qualifiers: Encounter type: subsequent encounter Comment: LEFT SHOULDER PAIN WITH REPORTED FX 1 WEEK AGO. 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
[2018-08-28 10:43] LABS: ALBUMIN 2.8 g/dl (3.4-5.0); ALK PHOS 243 U/L (45-117); ANION GAP 10 MMOL/L (8-16); BILIRUBIN,TOTAL 0.8 mg/dL (0.2-1); BLOOD UREA NITROGEN 10 mg/dL (7-18); CALCIUM 8.6 mg/dL (8.5-10.1); CHLORIDE 93 mmol/L (98-107); CO2 27 mmol/L (21-32); CREATININE 0.7 mg/dL (0.55-1.3); POTASSIUM 4.6 mmol/L (3.5-5.1); SGOT/AST 38 U/L (15-37); SGPT/ALT 16 U/L (13-61); SODIUM 129 mmol/L (136-145); TOT PROT 8.7 g/dl (6.4-8.2)
[2018-08-28] MEDS: NICOTINE 14 MG/24 HOURS TOPICAL PATCH TD SCH (10:49)
[2018-08-28 11:38] LABS: GLUCOSE,RANDOM 352 mg/dL (74-106)
[2018-08-28] MEDS: INSULIN SLIDING SCALE (NOVOLOG) 1 VIAL SQ SCH ×3 (11:41→21:46)
[2018-08-28] MEDS: LORazepam 1 MG TABLET PO PRN (13:27)
[2018-08-28] MEDS: IBUPROFEN 600 MG TABLET (FP) PO PRN (17:27)
[2018-08-28] MEDS ORDERED: INSULIN SLIDING SCALE (NOVOLOG) 1 VIAL SQ ONE (21:45)
[2018-08-28] MEDS: MELATONIN 5 MG TABLETS PO PRN (22:23)
[2018-08-28] MEDS: THIAMINE HCL 100 MG TABLET (FP) PO SCH (22:23)
[2018-08-28] MEDS: NICOTINE POLACRILEX 2 MG GUM BC PRN (22:27)
[2018-08-29] MEDS: IBUPROFEN 600 MG TABLET (FP) PO PRN ×2 (00:38→12:58)
[2018-08-29] MEDS ORDERED: chlordiazePOXIDE HCL 25 MG CAPSULE PO SCH (05:00)
[2018-08-29] MEDS: GABAPENTIN 100 MG CAPSULE (FP) PO SCH ×3 (05:37→22:15)
[2018-08-29] MEDS: LORazepam 1 MG TABLET PO SCH ×2 (05:37→12:57)
[2018-08-29] MEDS: glipiZIDE 5 MG TABLET (FP) PO SCH (06:46)
[2018-08-29] MEDS: INSULIN SLIDING SCALE (NOVOLOG) 1 VIAL SQ SCH ×4 (06:48→22:16)
[2018-08-29] MEDS: NICOTINE POLACRILEX 2 MG GUM BC PRN ×3 (08:47→22:19)
[2018-08-29] MEDS: LORazepam 1 MG TABLET PO PRN ×2 (10:21→22:15)
[2018-08-29] MEDS: PRENATAL VITAMINS W/ FOLIC ACID TABLET (FP) PO SCH (10:21)
[2018-08-29] MEDS: LACTULOSE 20 GM/30 ML UDC (FOR ORAL USE ONLY) PO SCH ×3 (10:21→22:16)
[2018-08-29] MEDS: NICOTINE 14 MG/24 HOURS TOPICAL PATCH TD SCH (10:23)
--- NOTE | 2018-08-29 13:52 | PN ---
S CIWA - CIWA Score Nausea/Vomitin-No Nausea/No Vomiting Muscle Tremors: 4-Moderate,w/Arms Extend Anxiety: 3 Agitation: 2 Paroxysmal Sweats: 1-Minimal Palms Moist Orientation: 0-Oriented Tacttile Disturbances: 0-None Auditory Disturbances: 0-None Visual Disturbances: 0-None Headache: 2-Mild CIWA-Ar Total Score: 12 BHS Progress Note (SOAP) Subjective: tremor sweating anxiousness Objective: 08/29/18 13:52 Vital Signs Temperature 98.5 F 08/29/18 13:39 Pulse Rate 111 H 08/29/18 13:39 Respiratory Rate 18 08/29/18 13:39 Blood Pressure 119/83 08/29/18 13:39 O2 Sat by Pulse Oximetry (%) Laboratory Last Values WBC 7.3 K/mm3 (4.0-10.0) 08/28/18 07:45 RBC 3.17 M/mm3 (3.60-5.2) L 08/28/18 07:45 Hgb 9.9 GM/dL (10.7-15.3) L 08/28/18 07:45 Hct 28.8 % (32.4-45.2) L 08/28/18 07:45 MCV 90.7 fl (80-96) 08/28/18 07:45 MCH 31.2 pg (25.7-33.7) 08/28/18 07:45 MCHC 34.4 g/dl (32.0-36.0) 08/28/18 07:45 RDW 16.7 % (11.6-15.6) H 08/28/18 07:45 Plt Count 372 K/MM3 (134-434) D 08/28/18 07:45 MPV 7.8 fl (7.5-11.1) 08/28/18 07:45 Sodium 129 mmol/L (136-145) L 08/28/18 08:00 Potassium 4.6 mmol/L (3.5-5.1) 08/28/18 08:00 Chloride 93 mmol/L (98-107) L 08/28/18 08:00 Carbon Dioxide 27 mmol/L (21-32) 08/28/18 08:00 Anion Gap 10 MMOL/L (8-16) 08/28/18 08:00 BUN 10 mg/dL (7-18) 08/28/18 08:00 Creatinine 0.7 mg/dL (0.55-1.3) 08/28/18 08:00 Creat Clearance w eGFR > 60 (>60) 08/28/18 08:00 POC Glucometer 422 UNITS (80-120) 08/29/18 12:50 Random Glucose 352 mg/dL (74-106) H* 08/28/18 08:00 Hemoglobin A1c % 6.7 % (4.2-6.3) H 08/29/18 06:00 Calcium 8.6 mg/dL (8.5-10.1) 08/28/18 08:00 Total Bilirubin 0.8 mg/dL (0.2-1) 08/28/18 08:00 AST 38 U/L (15-37) H 08/28/18 08:00 ALT 16 U/L (13-61) 08/28/18 08:00 Alkaline Phosphatase 243 U/L (45-117) H 08/28/18 08:00 Ammonia 130.84 umol/L (11-32) H 08/28/18 07:45 Total Protein 8.7 g/dl (6.4-8.2) H 08/28/18 08:00 Albumin 2.8 g/dl (3.4-5.0) L 08/28/18 08:00 RPR Titer Nonreactive (NONREACTIVE) 08/28/18 10:20 lab noted ammonia level elevation increase lactulose 08/29/18 13:56 Assessment: 08/29/18 13:56 withdrawal sx Plan: continue detox repeat ammonia
[2018-08-29] MEDS: LORazepam 2 MG TABLET PO SCH ×2 (15:38→20:35)
[2018-08-29] MEDS: hydrOXYzine PAMOATE 50 MG CAPSULE (FP) PO PRN (18:00)
[2018-08-29] MEDS: THIAMINE HCL 100 MG TABLET (FP) PO SCH (22:15)
[2018-08-29] MEDS: MELATONIN 5 MG TABLETS PO PRN (22:16)
[2018-08-30] MEDS: IBUPROFEN 600 MG TABLET (FP) PO PRN ×3 (00:44→17:08)
[2018-08-30] MEDS: hydrOXYzine PAMOATE 50 MG CAPSULE (FP) PO PRN ×2 (00:44→06:03)
[2018-08-30] MEDS: NICOTINE POLACRILEX 2 MG GUM BC PRN ×5 (00:51→22:52)
[2018-08-30] MEDS ORDERED: chlordiazePOXIDE 5 MG CAPSULE PO SCH (05:00)
[2018-08-30] MEDS: glipiZIDE 5 MG TABLET (FP) PO SCH (06:02)
[2018-08-30] MEDS: LORazepam 1 MG TABLET PO SCH ×4 (06:02→23:29)
[2018-08-30] MEDS: LACTULOSE 20 GM/30 ML UDC (FOR ORAL USE ONLY) PO SCH ×3 (06:02→22:29)
[2018-08-30] MEDS: GABAPENTIN 100 MG CAPSULE (FP) PO SCH ×3 (06:02→22:29)
[2018-08-30] MEDS: INSULIN SLIDING SCALE (NOVOLOG) 1 VIAL SQ SCH ×5 (06:37→22:31)
[2018-08-30] MEDS: NICOTINE 14 MG/24 HOURS TOPICAL PATCH TD SCH (09:05)
[2018-08-30] MEDS: PRENATAL VITAMINS W/ FOLIC ACID TABLET (FP) PO SCH (09:05)
[2018-08-30] MEDS ORDERED: LORazepam 0.5 MG TABLET PO PRN (12:00)
--- NOTE | 2018-08-30 12:11 | PN ---
S CIWA - CIWA Score Nausea/Vomitin-No Nausea/No Vomiting Muscle Tremors: 2 Anxiety: 1-Mildly Anxious Agitation: 2 Paroxysmal Sweats: 1-Minimal Palms Moist Orientation: 1-Uncertain about Date Tacttile Disturbances: 0-None Auditory Disturbances: 0-None Visual Disturbances: 0-None Headache: 1-Very Mild CIWA-Ar Total Score: 8 BHS Progress Note (SOAP) Subjective: tremor sweating anxiety restlessness Objective: 08/30/18 12:13 Vital Signs Temperature 96.4 F L 08/30/18 09:11 Pulse Rate 106 H 08/30/18 09:11 Respiratory Rate 18 08/30/18 09:11 Blood Pressure 108/73 08/30/18 09:11 O2 Sat by Pulse Oximetry (%) Laboratory Last Values WBC 7.3 K/mm3 (4.0-10.0) 08/28/18 07:45 RBC 3.17 M/mm3 (3.60-5.2) L 08/28/18 07:45 Hgb 9.9 GM/dL (10.7-15.3) L 08/28/18 07:45 Hct 28.8 % (32.4-45.2) L 08/28/18 07:45 MCV 90.7 fl (80-96) 08/28/18 07:45 MCH 31.2 pg (25.7-33.7) 08/28/18 07:45 MCHC 34.4 g/dl (32.0-36.0) 08/28/18 07:45 RDW 16.7 % (11.6-15.6) H 08/28/18 07:45 Plt Count 372 K/MM3 (134-434) D 08/28/18 07:45 MPV 7.8 fl (7.5-11.1) 08/28/18 07:45 Sodium 129 mmol/L (136-145) L 08/28/18 08:00 Potassium 4.6 mmol/L (3.5-5.1) 08/28/18 08:00 Chloride 93 mmol/L (98-107) L 08/28/18 08:00 Carbon Dioxide 27 mmol/L (21-32) 08/28/18 08:00 Anion Gap 10 MMOL/L (8-16) 08/28/18 08:00 BUN 10 mg/dL (7-18) 08/28/18 08:00 Creatinine 0.7 mg/dL (0.55-1.3) 08/28/18 08:00 Creat Clearance w eGFR > 60 (>60) 08/28/18 08:00 POC Glucometer 341 UNITS (80-120) 08/30/18 11:35 Random Glucose 352 mg/dL (74-106) H* 08/28/18 08:00 Hemoglobin A1c % 6.7 % (4.2-6.3) H 08/29/18 06:00 Calcium 8.6 mg/dL (8.5-10.1) 08/28/18 08:00 Total Bilirubin 0.8 mg/dL (0.2-1) 08/28/18 08:00 AST 38 U/L (15-37) H 08/28/18 08:00 ALT 16 U/L (13-61) 08/28/18 08:00 Alkaline Phosphatase 243 U/L (45-117) H 08/28/18 08:00 Ammonia 95.50 umol/L (11-32) H 08/30/18 06:00 Total Protein 8.7 g/dl (6.4-8.2) H 08/28/18 08:00 Albumin 2.8 g/dl (3.4-5.0) L 08/28/18 08:00 RPR Titer Nonreactive (NONREACTIVE) 08/28/18 10:20 lab noted 08/30/18 12:15 repeat ammonia level Assessment: 08/30/18 12:17 withdrawal sx Plan: continue detox
[2018-08-30] MEDS: THIAMINE HCL 100 MG TABLET (FP) PO SCH (22:29)
[2018-08-30] MEDS: MELATONIN 5 MG TABLETS PO PRN (22:34)
[2018-08-31] MEDS: IBUPROFEN 600 MG TABLET (FP) PO PRN ×2 (00:41→10:10)
[2018-08-31] MEDS: hydrOXYzine PAMOATE 50 MG CAPSULE (FP) PO PRN (00:41)
[2018-08-31] MEDS ORDERED: chlordiazePOXIDE HCL 10 MG CAPSULE PO SCH (05:00)
[2018-08-31] MEDS: GABAPENTIN 100 MG CAPSULE (FP) PO SCH (05:58)
[2018-08-31] MEDS ORDERED: LORazepam 0.5 MG TABLET PO SCH ×2 (06:00→10:15)
[2018-08-31] MEDS: LACTULOSE 20 GM/30 ML UDC (FOR ORAL USE ONLY) PO SCH (07:08)
[2018-08-31] MEDS: glipiZIDE 5 MG TABLET (FP) PO SCH (07:08)
[2018-08-31] MEDS: INSULIN SLIDING SCALE (NOVOLOG) 1 VIAL SQ SCH (08:09)
[2018-08-31 09:13] VITALS: BP 105/73; PULSE 108; TEMP 97.2
--- NOTE | 2018-08-31 09:21 | DS ---
[facility] Detox Discharge Summary Admission Date: 08/28/18 Discharge Date: 08/31/18 - History Present History: Alcohol Dependence Additional Comments: 43 years old female admitted on 08/28/18 for alcohol withdrawal stabilization feeling better today preferred to begin alcohol rehab tomorrow that she made an appointment with her orthopedic for her left shoulder fx "weeks" ago the patient arranged her brother pick her up today patient is alert coherent denies suicidal ideation - Physical Exam Results Vital Signs: Vital Signs Temperature 97.2 F L 08/31/18 09:12 Pulse Rate 108 H 08/31/18 09:12 Respiratory Rate 18 08/31/18 09:12 Blood Pressure 105/73 08/31/18 09:12 O2 Sat by Pulse Oximetry (%) Pertinent Admission Physical Exam Findings: alcohol withdrawal sx Vital Signs Laboratory Last Values WBC 7.3 K/mm3 (4.0-10.0) 08/28/18 07:45 RBC 3.17 M/mm3 (3.60-5.2) L 08/28/18 07:45 Hgb 9.9 GM/dL (10.7-15.3) L 08/28/18 07:45 Hct 28.8 % (32.4-45.2) L 08/28/18 07:45 MCV 90.7 fl (80-96) 08/28/18 07:45 MCH 31.2 pg (25.7-33.7) 08/28/18 07:45 MCHC 34.4 g/dl (32.0-36.0) 08/28/18 07:45 RDW 16.7 % (11.6-15.6) H 08/28/18 07:45 Plt Count 372 K/MM3 (134-434) D 08/28/18 07:45 MPV 7.8 fl (7.5-11.1) 08/28/18 07:45 Sodium 129 mmol/L (136-145) L 08/28/18 08:00 Potassium 4.6 mmol/L (3.5-5.1) 08/28/18 08:00 Chloride 93 mmol/L (98-107) L 08/28/18 08:00 Carbon Dioxide 27 mmol/L (21-32) 08/28/18 08:00 Anion Gap 10 MMOL/L (8-16) 08/28/18 08:00 BUN 10 mg/dL (7-18) 08/28/18 08:00 Creatinine 0.7 mg/dL (0.55-1.3) 08/28/18 08:00 Creat Clearance w eGFR > 60 (>60) 08/28/18 08:00 POC Glucometer 246 UNITS (80-120) 08/31/18 05:56 Random Glucose 352 mg/dL (74-106) H* 08/28/18 08:00 Hemoglobin A1c % 6.7 % (4.2-6.3) H 08/29/18 06:00 Calcium 8.6 mg/dL (8.5-10.1) 08/28/18 08:00 Total Bilirubin 0.8 mg/dL (0.2-1) 08/28/18 08:00 AST 38 U/L (15-37) H 08/28/18 08:00 ALT 16 U/L (13-61) 08/28/18 08:00 Alkaline Phosphatase 243 U/L (45-117) H 08/28/18 08:00 Ammonia 95.50 umol/L (11-32) H 08/30/18 06:00 Total Protein 8.7 g/dl (6.4-8.2) H 08/28/18 08:00 Albumin 2.8 g/dl (3.4-5.0) L 08/28/18 08:00 RPR Titer Nonreactive (NONREACTIVE) 08/28/18 10:20 patient agrees to bring in lab result to her orthopedic provider as well as up to date medication list lab noted - Treatment Hospital Course: Detox Protocol Followed, Detoxed Safely, Responded well, Discharged Condition Good, Rehab Referral Accepted Patient has Accepted a Rehab Referral to: [facility] - Medication Discharge Medications: Ambulatory Orders Folic Acid 0.8 mg PO DAILY 05/19/18 Glipizide 2.5 mg PO DAILY 05/19/18 Furosemide [Lasix -] 40 mg PO DAILY tablet 06/01/18 Gabapentin [Neurontin -] 100 mg PO DAILY capsule 06/01/18 Hydrocortisone 2.5% Topical Cr [Anusol-Hc -] 1 applic TP DAILY tube 06/01/18 Insulin Sliding Scale [Novolog Vial Sliding Scale -] 1 vial SQ ACHS units 06/01 Lactulose (Oral Use) [Cephulac -] 20 gm PO BID udc 06/01/18 Magnesium Oxide [Mag-Ox -] 400 mg PO BID tablet 06/01/18 Polyethylene Glycol 3350 [Miralax 119 gm Btl -] 17 gm PO DAILY bottle 06/01/18 Sennosides [Senna -] 1 tab PO HS tablet 06/01/18 Spironolactone [Aldactone -] 100 mg PO DAILY tablet 06/01/18 Thiamine HCl [Vitamin B1 -] 100 mg PO DAILY tablet 06/01/18 hydrOXYzine PAMOATE [Vistaril -] 50 mg PO Q6H PRN #30 capsule 06/14/18 - Diagnosis (1) Alcohol dependence with uncomplicated withdrawal Current Visit: Yes Status: Acute (2) Alcohol-induced mood disorder Current Visit: Yes Status: Suspected (3) Cirrhosis of liver Current Visit: Yes Status: Chronic Qualifiers: Hepatic cirrhosis type: alcoholic cirrhosis Ascites presence: with ascites Qualified Code(s): K70.31 - Alcoholic cirrhosis of liver with ascites (4) Shoulder fracture, left Current Visit: Yes Status: Acute Qualifiers: Encounter type: subsequent encounter Fracture healing: with routine healing (5) Increased ammonia level Current Visit: Yes Status: Acute (6) Nicotine dependence Current Visit: Yes Status: Acute Qualifiers: Nicotine product type: cigarettes Substance use status: in withdrawal Qualified Code(s): F17.213 - Nicotine dependence, cigarettes, with withdrawal (7) Type 2 diabetes mellitus Current Visit: Yes Status: Chronic Qualifiers: 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 Diabetes mellitus complication status: with unspecified complications Qualified Code(s) : E11.8 - Type 2 diabetes mellitus with unspecified complications; Z79.4 - 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
[2018-08-31] MEDS: NICOTINE 14 MG/24 HOURS TOPICAL PATCH TD SCH (10:08)
[2018-08-31] MEDS: PRENATAL VITAMINS W/ FOLIC ACID TABLET (FP) PO SCH (10:09)
[2018-08-31] MEDS: NICOTINE POLACRILEX 2 MG GUM BC PRN (10:11)
[2018-09-01] MEDS ORDERED: LORazepam 0.5 MG TABLET PO ONE (06:00)
== END 2018-08-31 10:17 | disposition home or self-care (01) | DRG 775 ==
LOC: YASAS 23:59 → Y3N 08-28 00:14
PROVIDERS: ADMIT Surgery; ATTEND Surgery
PROC: HZ2ZZZZ Detoxification Services for Substance Abuse Treatment (ICD-10-PCS; principal; 2018-08-28)
DX: F10.230 Alcohol dependence with withdrawal, uncomplicated (principal); F10.24 Alcohol dependence with alcohol-induced mood disorder; F10.282 Alcohol dependence with alcohol-induced sleep disorder; F17.213 Nicotine dependence, cigarettes, with withdrawal; F19.282 Other psychoactive substance dependence with psychoactive substance-induced sleep disorder; F32.9 Major depressive disorder, single episode, unspecified; E11.40 Type 2 diabetes mellitus with diabetic neuropathy, unspecified; Z79.4 Long term (current) use of insulin; K70.31 Alcoholic cirrhosis of liver with ascites; B18.2 Chronic viral hepatitis C; K76.0 Fatty (change of) liver, not elsewhere classified; R23.4 Changes in skin texture; R00.0 Tachycardia, unspecified; R63.8 Other symptoms and signs concerning food and fluid intake; R29.6 Repeated falls; R29.2 Abnormal reflex; Z99.89 Dependence on other enabling machines and devices
CPT/HCPCS: 36415; 80053; 82140; 82962; 83036; 85027; 86593